=== PATIENT | female | born 1940 | race Caucasian/White ===

== ENCOUNTER → 2018-11-01 14:31 | Outpatient (CLI) | payer OTHER, SELFPAY ==
--- NOTE | 2018-11-01 14:33 | DI.RAD.S_ITS ---
This blank DEXA report has been sent in error by the PACS system. The correct and complete report will be forthcoming in 1-2 days. Thank you for your patience and understanding. Dictated by: Aftab Tatum M.D. on 11/01/2018 at 16:12 Approved by: Aftab Tatum M.D. on 11/01/2018 at 16:22
== END ==
PROVIDERS: PCP Family Medicine; Visit Provider Family Medicine
DX: M85.832 Other specified disorders of bone density and structure, left forearm (principal); Z78.0 Asymptomatic menopausal state; Z82.62 Family history of osteoporosis; Z85.3 Personal history of malignant neoplasm of breast; Z90.722 Acquired absence of ovaries, bilateral; Z87.891 Personal history of nicotine dependence
CPT/HCPCS: 77080

== ENCOUNTER → 2018-11-23 07:29 | Outpatient (CLI) | payer OTHER, SELFPAY ==
[2018-11-23 07:59] LABS: Add Manual Diff / Slide Review NO; Basophils Percent Auto 0.9 % (0-2); Eosinophils Percent Auto 6.8 % (2-4); Hematocrit 36.9 % (36-46); Hemoglobin 12.1 g/dL (12.0-16.0); Lymphocytes Percent Auto 40.8 % (25-40); Mean Corpuscular HGB Conc 32.8 % (30-36); Mean Corpuscular Hemoglobin 31.2 PG (26-34); Mean Corpuscular Volume 94.9 fL (80-100); Monocytes Percent Auto 10.1 % (3-14); Neutrophils Absolute Auto 2000 /uL (1500-7000); Neutrophils Percent Auto 41.4 % (50-75); Platelet Count 287 X10^3/uL (150-400); Red Blood Cell Count 3.88 X10^6/uL (4.0-5.2); Red Cell Distribution Width 13.6 % (11.6-14.8); White Blood Cell Count 4.7 X10^3/uL (4.5-11.0)
[2018-11-23 08:19] LABS: Alanine Aminotransferase 28 IU/L (9-52); Albumin 4.2 g/dL (3.5-5.0); Albumin Globulin Ratio 1.4 (1.0-2.8); Alkaline Phosphatase 69 U/L (38-126); Aspartate Aminotransferase 31 IU/L (14-36); Bilirubin Total 0.9 mg/dL (0.2-1.3); Blood Urea Nitrogen 21 mg/dL (7-17); Calcium 9.3 mg/dL (8.4-10.2); Carbon Dioxide 30 mmol/L (22-32); Chloride 104 mmol/L (98-107); Cholesterol 187 mg/dL (140-199); Estimated Glomerular Filt Rate 53.6 mL/min (>60); Globulin 2.9 g/dL (1.7-4.1); Glucose 90 mg/dL (80-110); HDL Cholesterol 91 mg/dL (40-60); HEMOLYSIS < 15 (0-50); LDL Cholesterol Calculated 79 mg/dL (<100); Potassium 4.6 mmol/L (3.4-5.1); Sodium 142 mmol/L (137-145); Total Protein 7.1 g/dL (6.3-8.2); Triglycerides 84 mg/dL (35-150)
[2018-11-23 08:55] LABS: Vitamin D 25 Hydroxy (D3) 47.5 ng/mL (30.0-100.0)
[2018-11-23 09:07] LABS: Thyroid Stimulating Hormone 2.92 uIU/mL (0.47-4.68)
== END ==
PROVIDERS: PCP Family Medicine; Visit Provider Family Medicine
DX: E03.9 Hypothyroidism, unspecified (principal); E78.5 Hyperlipidemia, unspecified
CPT/HCPCS: 36415; 80053; 80061; 82306; 84443; 85025

== ENCOUNTER → 2018-11-23 09:16 | Outpatient (CLI) | payer OTHER, SELFPAY ==
--- NOTE | 2018-11-23 | DI.MG.S_ITS ---
UNILATERAL LEFT DIGITAL SCREENING MAMMOGRAM 3D/2D WITH CAD: 11/23/2018 CLINICAL: Routine screening. Personal history of right breast cancer. Post right mastectomy. Comparison is made to exams dated: 09/28/2017 mammogram, 09/08/2016 mammogram, and 07/30/2015 mammogram - [facility]. There are scattered fibroglandular elements in left breast. Current study was also evaluated with a Computer Aided Detection (CAD) system. There are benign vascular calcifications in the left breast. No significant masses, calcifications, or other findings are seen in the breast. There has been no significant interval change. IMPRESSION: There is no mammographic evidence of malignancy. A 1 year screening mammogram is recommended. This exam was interpreted at Station ID: [id number]. NOTE: For mammograms, a report in lay terms will be sent to the patient. Approximately 15% of breast malignancies will not be visualized mammographically. In the management of a palpable breast mass, a negative mammogram must not discourage biopsy of a clinically suspicious lesion. Electronically Signed By: Bong omalley/phuong:11/23/2018 21:49:58 letter sent: Normal Exam ACR BI-RADS Category 2: Benign Finding(s) 3342F
== END ==
PROVIDERS: PCP Family Medicine; Visit Provider Family Medicine
DX: Z12.31 Encounter for screening mammogram for malignant neoplasm of breast (principal); Z85.3 Personal history of malignant neoplasm of breast
CPT/HCPCS: 77063; 77067

== ENCOUNTER → 2019-12-14 08:06 | Outpatient (CLI) | payer MEDICARE, SELFPAY ==
--- NOTE | 2019-12-14 | DI.MG.S_ITS ---
UNILATERAL LEFT DIGITAL SCREENING MAMMOGRAM 3D/2D WITH CAD POST MASTECTOMY: 12/14/2019 CLINICAL: Routine screening. Personal history of right breast cancer. Comparison is made to exams dated: 09/28/2017 mammogram, 11/23/2018 mammogram, 09/08/2016 mammogram, 07/30/2015 mammogram, 07/26/2014 mammogram, and 03/02/2013 mammogram - [facility]. The tissue of left breast is heterogeneously dense. This may lower the sensitivity of mammography. Current study was also evaluated with a Computer Aided Detection (CAD) system. There is an irregular focal asymmetry in the left breast superior lateral quadrant posterior depth. There are left breast vascular calcifications. No other significant masses or calcifications are seen in the breast. IMPRESSION: INCOMPLETE: NEEDS ADDITIONAL IMAGING EVALUATION The irregular focal asymmetry in the left breast is indeterminate. Additional views with possible ultrasound are recommended. This exam was interpreted at Station ID: [id number]. NOTE: For mammograms, a report in lay terms will be sent to the patient. Approximately 15% of breast malignancies will not be visualized mammographically. In the management of a palpable breast mass, a negative mammogram must not discourage biopsy of a clinically suspicious lesion. Electronically Signed By: Bong Gomez M.D. ecl/:12/14/2019 17:31:14 letter sent: Additional Imaging Needed ACR BI-RADS Category 0: Incomplete 3340F
== END ==
PROVIDERS: PCP Family Medicine; Visit Provider Family Medicine
DX: Z12.31 Encounter for screening mammogram for malignant neoplasm of breast (principal); Z85.3 Personal history of malignant neoplasm of breast
CPT/HCPCS: 77063; 77067

== ENCOUNTER → 2019-12-21 10:05 | Outpatient (CLI) | payer MEDICARE, SELFPAY ==
--- NOTE | 2019-12-21 10:06 | DI.MG.S_ITS ---
UNILATERAL LEFT DIGITAL DIAGNOSTIC MAMMOGRAM 3D/2D WITH ADDITIONAL VIEWS POST MASTECTOMY: 12/21/2019 CLINICAL: Additional evaluation requested from prior study. Comparison is made to exams dated: 12/14/2019 mammogram, 11/23/2018 mammogram, and 09/28/2017 mammogram - [facility]. The tissue of left breast is heterogeneously dense. This may lower the sensitivity of mammography. The irregular asymmetry with indistinct margins in the left breast central to the nipple posterior depth is not seen on additional views. No other significant masses or calcifications are seen in the breast. IMPRESSION: There is no mammographic evidence of malignancy. A 1 year screening mammogram is recommended. This exam was interpreted at Station ID: [id number]. NOTE: For mammograms, a report in lay terms will be sent to the patient. Approximately 15% of breast malignancies will not be visualized mammographically. In the management of a palpable breast mass, a negative mammogram must not discourage biopsy of a clinically suspicious lesion. Electronically Signed By: Anuj garcia/:12/21/2019 10:53:54 letter sent: Normal Exam ACR BI-RADS Category 2: Benign Finding(s) 3342F
== END ==
PROVIDERS: PCP Family Medicine; Visit Provider Family Medicine
DX: R92.8 Other abnormal and inconclusive findings on diagnostic imaging of breast (principal)
CPT/HCPCS: 76642; 77065; G0279

== ENCOUNTER → 2020-04-21 14:13 | Outpatient (CLI) | payer MEDICARE, SELFPAY ==
--- NOTE | 2020-04-21 14:14 | DI.US.S_ITS ---
PROCEDURE: US PERIPH VENOUS LOW EXTREM LT INDICATIONS: LLE EDEMA, R/O DVT TECHNIQUE: Real-time imaging, as well as color and pulse Doppler interrogation, were performed of the lower extremity deep veins from the inguinal ligament to the popliteal fossa. COMPARISON: None. FINDINGS: The common femoral, femoral and popliteal veins are normally compressible, and free of intraluminal thrombus. Color and pulse Doppler demonstrate normal phasic intraluminal flow. There is normal augmentation response to distal compression maneuver. Scattered subcutaneous varicose veins are incidentally noted within the region of the palpable area that appear to be patent. There is a subcutaneous edema present without a drainable or loculated fluid collection identified. IMPRESSION: No evidence of deep vein thrombosis of the left lower extremity. Dictated by: Kristopher Aguilar M.D. on 04/21/2020 at 14:01 Approved by: Kristopher Aguilar M.D. on 04/21/2020 at 14:04
== END ==
PROVIDERS: PCP Family Medicine; Referring Provider Nurse Practitioner; Visit Provider Nurse Practitioner
DX: R60.0 Localized edema (principal)
CPT/HCPCS: 93971

== ENCOUNTER → 2020-12-02 07:07 | Outpatient (CLI) | payer MEDICARE, SELFPAY ==
[2020-12-02 08:33] LABS: Alanine Aminotransferase 20 IU/L (<35); Albumin 4.1 g/dL (3.5-5.0); Albumin Globulin Ratio 1.6 (1.0-2.8); Alkaline Phosphatase 70 U/L (38-126); Aspartate Aminotransferase 34 IU/L (14-36); BUN Creatinine Ratio 18.8 (6-22); Bilirubin Total 0.5 mg/dL (0.2-1.3); Blood Urea Nitrogen 19 mg/dL (7-17); Calcium 9.2 mg/dL (8.4-10.2); Carbon Dioxide 32 mmol/L (22-32); Chloride 106 mmol/L (98-107); Cholesterol 179 mg/dL (140-199); Estimated Glomerular Filt Rate 52.7 mL/min (>60); Globulin 2.6 g/dL (1.7-4.1); Glucose 86 mg/dL (80-110); HDL Cholesterol 96 mg/dL (40-60); HEMOLYSIS < 15 (0-50); LDL Cholesterol Calculated 63 mg/dL (<100); Potassium 4.1 mmol/L (3.4-5.1); Sodium 139 mmol/L (137-145); Total Protein 6.7 g/dL (6.3-8.2); Triglycerides 99 mg/dL (35-150)
[2020-12-02 09:01] LABS: TSH w/ Reflex to FT4 2.87 uIU/mL (0.47-4.68)
== END ==
PROVIDERS: PCP Family Medicine; Referring Provider Family Medicine; Visit Provider Family Medicine
DX: E03.9 Hypothyroidism, unspecified (principal); E78.2 Mixed hyperlipidemia; M81.0 Age-related osteoporosis without current pathological fracture
CPT/HCPCS: 36415; 80053; 80061; 84443

== ENCOUNTER → 2020-12-22 10:22 | Outpatient (CLI) | payer MEDICARE, SELFPAY ==
--- NOTE | 2020-12-22 10:24 | DI.MG.S_ITS ---
UNILATERAL LEFT DIGITAL SCREENING MAMMOGRAM 3D/2D WITH CAD POST MASTECTOMY: 12/22/2020 CLINICAL: Routine screening. Breast cancer. Comparison is made to exams dated: 12/21/2019 mammogram, 12/14/2019 mammogram, 11/23/2018 mammogram, and 09/28/2017 mammogram - [facility]. The tissue of left breast is heterogeneously dense. This may lower the sensitivity of mammography. Current study was also evaluated with a Computer Aided Detection (CAD) system. No significant masses, calcifications, or other findings are seen in the breast. There has been no significant interval change. IMPRESSION: NEGATIVE There is no mammographic evidence of malignancy. A 1 year screening mammogram is recommended. This exam was interpreted at Station ID: [id number]. NOTE: For mammograms, a report in lay terms will be sent to the patient. Approximately 15% of breast malignancies will not be visualized mammographically. In the management of a palpable breast mass, a negative mammogram must not discourage biopsy of a clinically suspicious lesion. Electronically Signed By: Kp landa/phuong:12/22/2020 11:19:28 letter sent: Normal Exam ACR BI-RADS Category 1: Negative 3341F
== END ==
PROVIDERS: PCP Family Medicine; Referring Provider Family Medicine; Visit Provider Family Medicine
DX: Z12.31 Encounter for screening mammogram for malignant neoplasm of breast (principal); Z85.3 Personal history of malignant neoplasm of breast
CPT/HCPCS: 77063; 77067

== ENCOUNTER 2021-02-05 13:47 | Emergency (ER) | payer MEDICARE, SELFPAY ==
[2021-02-05 13:50] VITALS: BP 238/112; PULSE 102; RESP 13; TEMP 36.4; O2SAT 97; BMI 29.0
--- NOTE | 2021-02-05 13:58 | DI.CT.S_ITS ---
PROCEDURE: CT FACIAL BONES WO CON INDICATIONS: Fall, nasal swelling and facial pain TECHNIQUE: Noncontrast 2.5 mm thick axial images acquired from the mandible through the frontal sinuses, with coronal and sagittal reformatting. For radiation dose reduction, the following was used: automated exposure control, adjustment of mA and/or kV according to patient size. COMPARISON: None. FINDINGS: Image quality: Degraded by patient motion artifact. Bones and teeth: Orbital starkey are intact. Sinus starkey show no fracture or deformity. Bilateral nasal bone fractures noted. Nasal septum is intact. Visualized portions of the mandible demonstrate no fractures or subluxation. Zygomatic arches are intact. Pterygoid plates are intact. Visualized portions of the skull base and auditory canals are intact. Sinuses: Small mucous retention cyst versus polyp noted in the right maxillary sinus. 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 Mastoid air cells are aerated. Soft tissues: No edema, masses, or fluid collections. No enlarged lymph nodes. No soft tissue lacerations or debris. Vascular: Visualized vascular structures appear normal in the absence of contrast. Bony vascular foramina and canals are intact. IMPRESSION: Bilateral nasal bone fractures. Dictated by: Della Chapman MD, PhD on 02/05/2021 at 14:30 Approved by: Della Chapman MD, PhD on 02/05/2021 at 14:45
--- NOTE | 2021-02-05 13:58 | DI.RAD.S_ITS ---
PROCEDURE: XR KNEE LT 3V INDICATIONS: L patella pain post fall TECHNIQUE: 3 views of the knee were acquired. COMPARISON: [facility], CR, XR KNEE 1 OR 2VW RT, 08/10/2016, 14:47. [facility], CR, KNEE 3V RIGHT, 06/12/2013, 11:36. FINDINGS: Bones: No fractures or dislocations. No suspicious bony lesions. Knee hemiarthroplasty is present. No hardware fracture. There is depression of the medial compartment. No prior exams are available for comparison. Soft tissues: Moderate joint effusion. No suspicious soft tissue calcifications. IMPRESSION: Medial compartment hemiarthroplasty with depression of the plateau. While this could be post surgical, underlying fracture cannot be excluded. Dictated by: Alaina Wallace M.D. on 02/05/2021 at 14:39 Approved by: Alaina Wallace M.D. on 02/05/2021 at 14:47
--- NOTE | 2021-02-05 13:58 | DI.RAD.S_ITS ---
PROCEDURE: XR ELBOW RT MIN 3V INDICATIONS: R elbow pain post fall TECHNIQUE: 3 views of the elbow were acquired. COMPARISON: None. FINDINGS: Bones: No fractures or dislocations. No suspicious bony lesions. Arthritic changes at Soft tissues: Moderate elbow joint effusion. No suspicious soft tissue calcifications. IMPRESSION: No visualized acute fracture or dislocation. However, if clinical concern and/or pain persist, short interval imaging followup in 7-10 days is recommended, as occult injury cannot be definitively excluded. Dictated by: Alaina Wallace M.D. on 02/05/2021 at 14:36 Approved by: Alaina Wallace M.D. on 02/05/2021 at 14:39
--- NOTE | 2021-02-05 14:01 | ED.FALL ---
HPI - Fall <ESTELLA Kaye - Last Filed: 02/05/21 15:42> General Chief Complaint: Fall Stated Complaint: TRIPPED AND FELL, HURT NOSE, R ELBOW, L KNEE Time Seen by Provider: 02/05/21 13:49 Source: patient Mode of arrival: Ambulatory History of Present Illness HPI Narrative: 80yo female presents to the ED for nasal pain, right elbow pain, and left knee pain after fall. Patient states she was walking on the pavement when she tripped and fell face first. Patient states she landed on her nose, right elbow, and left knee. She states she was helped up by bystanders. She denies any symptoms previous to falling such as chest pain, dizziness, shortness of breath, or vertigo. She denies any syncope post fall, denies any headaches, vision changes, chest pain, abdominal pain, vomiting, disorientation, or any other concerns. She is not taking any blood thinners. Patient states this happened approximately 4 hours ago. She noticed swelling across her nose with pain to palpation of this area, pain with straightening her right elbow, and pain to palpation of her left knee. She is able to weightbear on her left leg normally. She does report some difficulty bending her right arm as well. Patient denies any neck pain or other injuries. Friend at bedside. Related Data Home Medications Medication Instructions Recorded Confirmed MULTIVITAMIN (Multivitamin 1 cap PO EVERY DAY #0 07/24/10 01/05/21 -) Vitamin E (Alpha-Tocopherol) 400 unit PO QDAY #0 07/24/10 01/05/21 [CoQ10] 300 mg PO QDAY #0 07/24/10 01/05/21 [VITAMIN B-50 COMPLEX] PO QDAY #0 07/24/10 01/05/21 vit C 50 mg-E 15 unit-zinc cit 4.5 2 tab PO DAILY 12/13/18 01/05/21 mg-lutein 2.5 mg-zeaxan chew tablet Previous Rx's Medication Instructions Recorded tolterodine 4 mg capsule,extended 4 mg PO ONCE #90 cap 10/21/20 release 24 hr zolpidem 5 mg tablet 5 mg PO HS #14 tab 11/12/20 atorvastatin 10 mg tablet 10 mg PO QPM #90 tab 12/10/20 levothyroxine 75 mcg tablet 75 mcg PO QAM #90 tab 12/10/20 raloxifene 60 mg tablet 60 mg PO QDAY #90 tab 01/12/21 meloxicam 7.5 mg tablet 7.5 mg PO DAILY #30 tab 01/15/21 Allergies Allergy/AdvReac Type Severity Reaction Status Date / Time morphine [MORPHINE] Allergy Mild ITCHY Verified 02/05/21 13:54 Review of Systems <ESTELLA Kaye - Last Filed: 02/05/21 15:42> Review of Systems Narrative: REVIEW OF SYSTEMS: GENERAL: Denies fever or chills. HENT: Reports nasal swelling and pain post trauma, see HPI. EYES: No double vision or vision loss. CARDIOVASCULAR: No chest pain or syncope. RESPIRATORY: No shortness of breath or cough. GASTROINTESTINAL: No nausea, vomiting, diarrhea, or constipation. MUSCULOSKELETAL: Complains of right elbow and left knee pain, see HPI. INTEGUMENTARY: No rash. NEURO: No numbness or tingling. Patient History <ESTELLA Kaye - Last Filed: 02/05/21 15:42> Medical History CKD (chronic kidney disease) stage 3, GFR 30-59 ml/min Hyperlipidemia Hypertension Hypothyroidism Lower extremity edema Mass of soft tissue of left lower extremity Osteoarthritis, multiple sites Osteoporosis Social History Smoking Status: Former smoker Smoking Status: Former smoker alcohol intake frequency: 0-2 drinks per day Substance Use Type: does not use Exam <ESTELLA Kaye - Last Filed: 02/05/21 15:42> Initial Vital Signs Initial Vital Signs: Vital Signs Temperature 97.6 F 02/05/21 13:50 Pulse Rate 102 H 02/05/21 13:50 Respiratory Rate 13 02/05/21 13:50 Blood Pressure 238/112 H 02/05/21 13:50 Pulse Oximetry 97 02/05/21 13:50 PHYSICAL EXAMINATION: GENERAL: Awake and alert, ambulates to room. HENT: Normocephalic, nasal area able appears grossly in line, significant swelling and ecchymosis noted to nose, tenderness with palpation that extends to mid maxillary bones bilaterally. No tenderness to palpation of mandible or forehead or skull including temporal bones. EYES: PERRLA, EOMIs, conjunctiva pink, sclera white, no periorbital swelling. CHEST: Normal to inspection and without deformities. RESPIRATORY: Normal respiratory rate, trachea midline, airway patent. No stridor, nasal flaring or accessory muscle use. MUSCULOSKELETAL: Tenderness to epicondyle of her right elbow, small amount of erythema and ecchymosis noted. Decreased flexion and extension due to pain. Tenderness to palpation of left patella, small amount of ecchymosis. Patient has good flexion and extension. Normal gait and coordination. Equal tone and mass bilaterally. EXTREMITIES: CMS intact. Moves all extremities. SKIN: Warm, dry, soft, appropriate color for ethnicity. No lesions, rashes, or wounds. NEURO: Alert and Oriented X 3. Good coordination. No ataxia, or sensory deficits, or cognitive issues. PSYCH: Appropriate affect and mood. <Remberto Morgan DO - Last Filed: 02/05/21 17:05> Initial Vital Signs Initial Vital Signs: Vital Signs Temperature 97.6 F 02/05/21 13:50 Pulse Rate 102 H 02/05/21 13:50 Respiratory Rate 13 02/05/21 13:50 Blood Pressure 238/112 H 02/05/21 13:50 Pulse Oximetry 97 02/05/21 13:50 Scores <ESTELLA Kaye - Last Filed: 02/05/21 15:42> GCS Tanner coma scale eye opening: Spontaneous Gustabo coma scale verbal response: Orientated Tanner coma scale motor response: Obey commands Gustabo coma scale total score: 15 Nexus Score for C-Spine Focal Neurologic deficit present: No Midline spinal tenderness present: No Altered level of conciousness present: No Intoxication present: No Distracting Injury Present: No Nexus Criteria for C-spine: 0 Course <ESTELLA Kaye - Last Filed: 02/05/21 15:42> Orders Ordered: ED Orders 02/05/21 13:58 CT facial bones wo con Stat XR elbow RT min 3V Stat XR knee LT 3V Stat Vital Signs Vital signs: Vital Signs - 8 hr 02/05/21 13:50 02/05/21 15:19 Temperature 97.6 F Pulse Rate 102 H 82 Respiratory Rate 13 12 Blood Pressure 238/112 H 210/100 H Pulse Oximetry 97 99 <Remberto Morgan DO - Last Filed: 02/05/21 17:05> Orders Ordered: ED Orders 02/05/21 13:58 CT facial bones wo con Stat XR elbow RT min 3V Stat XR knee LT 3V Stat Vital Signs Vital signs: Vital Signs - 8 hr 02/05/21 13:50 02/05/21 15:19 Temperature 97.6 F Pulse Rate 102 H 82 Respiratory Rate 13 12 Blood Pressure 238/112 H 210/100 H Pulse Oximetry 97 99 MDM - Fall <ESTELLA Kaye - Last Filed: 02/05/21 15:42> Medical Records Attestation: I reviewed the patient's medical records. Lab Data Attestation: I reviewed the patient's lab results. Imaging Data Extremity x-ray #1: Radiologist's Impression: [address] [id number] ReportSigned Patient: Julissa Ceja EDI#: [id number]: [id number]:[id number]/Sex: 80 / FDate of Service: 02/05/21Loc: EDAccession Number: [id number] Procedure: XR knee LT 3V Ordering Provider: Clotilde Bustamante PROCEDURE: XR KNEE LT 3V INDICATIONS: L patella pain post fall TECHNIQUE: 3 views of the knee were acquired. COMPARISON: [facility], CR, XR KNEE 1 OR 2VW RT, 08/10/2016, 14:47. [facility], CR, KNEE 3V RIGHT, 06/12/2013, 11:36. FINDINGS: Bones: No fractures or dislocations. No suspicious bony lesions. Knee hemiarthroplasty is present. No hardware fracture. There is depression of the medial compartment. No prior exams are available for comparison. Soft tissues: Moderate joint effusion. No suspicious soft tissue calcifications. IMPRESSION: Medial compartment hemiarthroplasty with depression of the plateau. While this could be post surgical, underlying fracture cannot be excluded. Dictated by: Alaina Wallace M.D. on 02/05/2021 at 14:39 Approved by: Alaina Wallace M.D. on 02/05/2021 at 14:47 Extremity x-ray #2: Radiologist's Impression: [address] [id number] ReportSigned Patient: Julissa Ceja JMR#: [id number]: 1940Acct:[id number]/Sex: 80 / FDate of Service: 02/05/21Lo: EDAccession Number: [id number] Procedure: XR elbow RT min 3V Ordering Provider: Clotilde Bustamante PROCEDURE: XR ELBOW RT MIN 3V INDICATIONS: R elbow pain post fall TECHNIQUE: 3 views of the elbow were acquired. COMPARISON: None. FINDINGS: Bones: No fractures or dislocations. No suspicious bony lesions. Arthritic changes at Soft tissues: Moderate elbow joint effusion. No suspicious soft tissue calcifications. IMPRESSION: No visualized acute fracture or dislocation. However, if clinical concern and/or pain persist, short interval imaging followup in 7-10 days is recommended, as occult injury cannot be definitively excluded. Dictated by: Alaina Wallace M.D. on 02/05/2021 at 14:36 Approved by: Alaina Wallace M.D. on 02/05/2021 at 14:[address]: Radiologist's Impression: [address] Scan ReportSigned Patient: Julissa Ceja JMR#: [id number]: 1940Acct:[id number]/Sex: 80 / FDate of Service: 02/05/21Lo: EDAccession Number: [id number] Procedure: CT facial bones wo con Ordering Provider: Clotilde Bustamante PROCEDURE: CT FACIAL BONES WO CON INDICATIONS: Fall, nasal swelling and facial pain TECHNIQUE: Noncontrast 2.5 mm thick axial images acquired from the mandible through the frontal sinuses, with coronal and sagittal reformatting. For radiation dose reduction, the following was used: automated exposure control, adjustment of mA and/or kV according to patient size. COMPARISON: None. FINDINGS: Image quality: Degraded by patient motion artifact. Bones and teeth: Orbital starkey are intact. Sinus starkey show no fracture or deformity. Bilateral nasal bone fractures noted. Nasal septum is intact. Visualized portions of the mandible demonstrate no fractures or subluxation. Zygomatic arches are intact. Pterygoid plates are intact. Visualized portions of the skull base and auditory canals are intact. Sinuses: Small mucous retention cyst versus polyp noted in the right maxillary sinus. 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 Mastoid air cells are aerated. Soft tissues: No edema, masses, or fluid collections. No enlarged lymph nodes. No soft tissue lacerations or debris. Vascular: Visualized vascular structures appear normal in the absence of contrast. Bony vascular foramina and canals are intact. IMPRESSION: Bilateral nasal bone fractures. Dictated by: Della Chapman MD, PhD on 02/05/2021 at 14:30 Approved by: Della Chapman MD, PhD on 02/05/2021 at 14:[address] [facility] Narrative Medical decision making narrative: 80-year-old female presenting to the emergency department after fall. She is not on any blood thinners, no concerning history such as prior symptoms, syncope, dizziness, or vomiting prior post fall. No neck pain, nexus criteria of 0, GCS of 15. Neuro exam intact, less concern for acute cranial etiology. CT scan was ordered due to maxillary facial pain and nasal pain, reveals bilateral nasal fractures. Patient did complain of right elbow and left knee pain with some ecchymosis on examination. Was concern for fracture due to negative images. There was some changes seen on left knee x-ray that may be postsurgical to the hemiarthroplasty. The x-ray report reads that is difficult to rule out fracture however, patient was only tender over her kneecap, she is able to ambulate without any significant tenderness, no significant swelling to this area, so very low suspicion for fracture. However, I discussed these findings with patient and she was encouraged to follow up if she develops any new or worsening pain. Patient was referred to ENT. She is able to breathe out of both nostrils, no bleeding at this time. Return precautions given for new or worsening symptoms. She agreed to plan of care verbalized understanding. Discharge Plan Departure Patient Disposition: Home Clinical Impression: Fracture closed, nasal bone Qualifiers: Encounter type: initial encounter Qualified Code(s): S02.2XXA - Fracture of nasal bones, initial encounter for closed fracture Acute knee pain Qualifiers: Laterality: left Qualified Code(s): M25.562 - Pain in left knee Instructions: DI for Nose Fracture, How to Prevent Falls Activity Restrictions/Additional Instructions: Thank you for entrusting me with your care today. As discussed, your CT shows bilateral nasal bone fractures. I referred you to an ENT, please call the office listed below and let them know you were seen in the ED for a nasal bone fracture and were instructed to follow up with them. Incidentally there is a small cyst/polyp noted in your right maxillary sinus. Your elbow x-rays negative for fractures. Your knee x-ray shows medial compartment hemiarthroplasty with depression of the plateau, this is most likely from surgical changes. However, if you continue to have pain in this area I suggest following up with your primary care provider or an orthopedic as imaging may need to be repeated to further rule out of fracture. Tried to sleep with your head slightly elevated over the next few days, use Tylenol as needed for pain. Do not blow your nose. Try to sneeze with your mouth open to relieve pressure. Your blood pressure was initially high today, this may be due to pain in the emergency department. When this occurs, we suggest monitoring your blood pressure over the next 1-2 weeks and follow-up with your primary care provider. Return emergency department for any new or worsening symptoms such as severe headache, uncontrollable bleeding, dizziness, syncope, vision changes, chest pain, shortness of breath, severe pain, or any other concerns. Prescriptions: No Action [CoQ10] 300 mg PO QDAY Qty: 0 RF: 0 MULTIVITAMIN (Multivitamin -) 1 cap PO EVERY DAY Qty: 0 RF: 0 Vitamin E (Alpha-Tocopherol) 400 unit PO QDAY Qty: 0 RF: 0 [VITAMIN B-50 COMPLEX] PO QDAY Qty: 0 RF: 0 tolterodine [Detrol LA] 4 mg capsule,extended release 24hr 4 mg PO ONCE Qty: 90 RF: 1 zolpidem 5 mg tablet 5 mg PO HS Qty: 14 RF: 0 raloxifene [Evista] 60 mg tablet 60 mg PO QDAY Qty: 90 RF: 1 meloxicam 7.5 mg tablet 7.5 mg PO DAILY Qty: 30 RF: 2 vit C-E-zinc [id number] [Ocuvite Eye Health] 50 mg-15 unit- 4.5 mg-2.5 mg tablet,chewable 2 tab PO DAILY RF: 0 levothyroxine [Synthroid] 75 mcg tablet 75 mcg PO QAM Qty: 90 RF: 3 atorvastatin 10 mg tablet 10 mg PO QPM Qty: 90 RF: 3 Referrals: Robin Sims MD [Primary Care Provider] - <Remberto Morgan DO - Last Filed: 02/05/21 17:05> Cosign ED Attending Cosignature Attestation: Dr Morgan Co-Sign Statement: I was available for consultation during this patient's emergency department visit. This chart is signed by myself for administrative purposes only. I did not have direct contact with this patient during this visit. They were seen independently by the APC.
[2021-02-05 15:19] VITALS: BP 210/100; PULSE 82; RESP 12; O2SAT 99
== END 2021-02-05 15:20 | disposition home or self-care (01) ==
PROVIDERS: Emergency Provider Nurse Practitioner; PCP Family Medicine
DX: S02.2XXA Fracture of nasal bones, initial encounter for closed fracture (principal); M25.521 Pain in right elbow; M25.562 Pain in left knee; W19.XXXA Unspecified fall, initial encounter
CPT/HCPCS: 70486; 73080; 73562; 99284

== ENCOUNTER 2021-03-17 13:45 | Outpatient (RCR) | payer MEDICARE, SELFPAY ==
--- NOTE | 2021-03-04 17:34 | PT.OIE ---
Current Diagnoses Pain in right elbow (03/04/21) Pain in left knee (03/04/21) Difficulty in walking, not elsewhere classified (03/04/21) Fracture of nasal bones, initial encounter for closed fracture (03/04/21) Past Medical History (Last Reviewed 02/05/21 @ 14:09 by ESTELLA Kaye) CKD (chronic kidney disease) stage 3, GFR 30-59 ml/min Hyperlipidemia Hypertension Hypothyroidism Lower extremity edema Mass of soft tissue of left lower extremity Osteoarthritis, multiple sites Osteoporosis Visit Care Team Role Provider Type Robin Sims MD Attending Provider Physician Primary Care Provider Referring Provider Specialty: [facility] Address: [address] [place] [address] Email: [email or web address] Physical Therapy Initial Evaluation PT-OP-A Visit Information Start: 03/04/21 13:03 Freq: Status: Active Protocol: Document 03/04/21 13:45 AW (Rec: 03/04/21 13:49 AW [id number]) Out-Patient Physical Therapy Visit Information Visit Information Visit Type Initial Evaluation Visit Start Time 13:00 Visit Stop Time 13:45 Total Visit Minutes 45 Visit Number 1 Number of SALES PERFORMANCE MANAGER Visits 0 Evaluation Information Evaluation Date 03/04/21 PT-OP-B Current Condition Start: 03/04/21 13:03 Freq: Status: Active Protocol: Document 03/04/21 13:45 AW (Rec: 03/04/21 13:49 AW [id number]) Current Condition History of Current Condition Onset Date 02/05/21 Current Complaints balance, recent falls History of Current Condition 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 On 02/05/21, she tripped over rubber mats, fell and fractured her nasal bones. She also had left knee and right shoulder pain. She was evaluated at ED. No fractures. Pain has mostly resolved. Pt states she fell one other time in the past year while working the same job site but did not injure herself at that fall. PMH includes osteopenia, breast and ovarian cancer, cataract surgery. She denies history of vestibular disorder though she does acknowledge some dizziness associated with panic - mostly related to driving and bridges. Pt has history of R ALICIA, R TKA, and left medial compartment knee arthroplasty. She has no pain now but relates decreased confidence with mobility. She typically wears knee high compression stockings for swelling left side. Prior Treatments and Tests PT after TKA's but no other therapy. X-rays following fall ruled out elbow or knee fractures. Treatment Goals Patient/Caregiver Goals I hope I can increase confidence in my balance and reduce the chance of falling again. Prior Functional Status Baseline Function- ADL's Independent Baseline Function- Mobility Independent Baseline Function- Gait railing for stairs; otherwise no AD Baseline Function- Work/School Volunteering four hour shifts at [employer] Baseline Function- Recreation/Hobbies [employer] volunteer Current Functional Impairments (Reported) Functional Limitations- Mobility/Gait decreased confidence Personal Factors Other Personal Factors That May Effect + positive association with Therapy/Recovery movement PT-OP-C Subjective Start: 03/04/21 13:03 Freq: Status: Active Protocol: Document 03/04/21 13:45 AW (Rec: 03/04/21 17:24 AW [email or web address]) Patient Questionnaires ABC- Activity Specific Balance Confidence Scale ABC Score 67.5 ABC Functional Impairment 20 to <40% Impaired (Score 61- 80) OP-PT Pain Assessment Pain Assessment Grid Paper Pain Assessment Grid Completed Yes: no pain PT-OP-D Balance Start: 03/04/21 13:03 Freq: Status: Active Protocol: Document 03/04/21 13:45 AW (Rec: 03/04/21 17:24 AW [email or web address]) OP-PT Balance Assessment Sitting Balance Static Sitting Balance Ability Normal Dynamic Sitting Balance Ability Normal Standing Balance Static Standing Balance Ability Good Dynamic Standing Balance Ability Good Device Used no AD Balance Tests mCTSIB mCTSIB Position 1 30 mCTSIB Position 2 30 mCTSIB Position 3 30 mCTSIB Position 4 8 Oliva Fall Scale Copyright Permission PT-OP-E Functional Tests Start: 03/04/21 13:03 Freq: Status: Active Protocol: Document 03/04/21 13:45 AW (Rec: 03/04/21 17:24 AW [email or web address]) Functional Tests Functional Gait Assessment Score 22 Functional Gait Assessment Impairment 20 to <40% Impaired (Score 19- Rating 24) PT-OP-G Mobility & Gait Start: 03/04/21 13:03 Freq: Status: Active Protocol: Document 03/04/21 13:45 AW (Rec: 03/04/21 17:24 AW [email or web address]) OP Gait Assessment Gait Gait Assistance Required: Independent Distance (Feet) 200 Assistive Devices Assistive Device None Orthotic/Prosthetic Devices or Brace: No Gait Deviations General Gait Pattern Antalgic,Step-to Gait Factors Limiting Gait Function Factors Limiting Gait Function Poor Balance Comments Gait Comments Slightly decreased LLE stance time; increased trunk rotation to the right PT-OP-H Neuro Start: 03/04/21 13:03 Freq: Status: Active Protocol: Document 03/04/21 13:45 AW (Rec: 03/04/21 17:24 AW [email or web address]) Sensation Evaluation Gross Sensation Gross Sensation WNL Deep Tendon Reflex & Clonus Assessment Deep Tendon Reflex Bilateral Achilles Deep Tendon Reflex 1+ Diminished Bilateral Patellar Deep Tendon Reflex 1+ Diminished PT-OP-K Range of Motion Start: 03/04/21 13:03 Freq: Status: Active Protocol: Document 03/04/21 13:45 AW (Rec: 03/04/21 17:24 AW [email or web address]) Lumbar Spine Range of Motion Lumbar Spine Active Comments WFL Hip Goniometric Range of Motion Hip Right Active Testing Position Supine Flexion w/Knee Flexed 95 Comments PROM 110 Left Active Testing Position Supine Flexion w/Knee Flexed 120 Comments PROM 122 Hip ROM Limitations Hip ROM Limitations Soft Tissue Tightness Knee Goniometric Range of Motion Knee Right Knee ROM WFL No Comments 0-110 AROM Left Knee ROM WFL No Patient Position Supine Comments 5-110 AROM PT-OP-M Strength Start: 03/04/21 13:03 Freq: Status: Active Protocol: Document 03/04/21 13:45 AW (Rec: 03/04/21 17:24 AW [email or web address]) Hip Strength Hip Manual Muscle Testing bilateral Flexion (L2) 4+ Good+ Extension (S1) 4- Good- Abduction 4 Good Adduction 4 Good External Rotation 4 Good Internal Rotation 4 Good Knee Strength Knee Manual Muscle Testing bilateral Flexion (S2) 4+ Good+ Extension (L3) 5 Normal Ankle/Foot Strength Ankle and Foot Manual Muscle Testing bilateral Dorsiflexion (L4) 4+ Good+ Plantarflexion (S1) 4+ Good+ Inversion 4+ Good+ Eversion (S1) 4+ Good+ Comments PF tested in standing with >12 heel lifts bilateraly PT-OP-T Assessment and Plan Start: 03/04/21 13:03 Freq: Status: Active Protocol: Document 03/04/21 13:45 AW (Rec: 03/04/21 17:33 AW [email or web address]) Physical Therapy Assessment Rehab Potential Rehabilitation Potential Good Evaluation Complexity Number of Personal Factors/Comorbidities 0 Number of Body Systems Impaired 1-2 Clinical Presentation at Evaluation Stable Impairments Impairments Balance,Functional Mobility, Gait,ROM,Strength Goals Four Impairment balance systems integration Custodial Goal (LTG) Pt will score 20 seconds or greater in condition 4 mCTSIB LTG Duration 2 months - 05/04/21 Three Impairment dynamic balance Taco Maker Goal (LTG) Pt will score 26/30 or greater on FGA to demonstrate improved dynamic balance Two Impairment hip strength Short Term Goal (STG) Pt will improve hip strength in all planes to 5/5 STG Duration 4 weeks - 04/01/21 One Impairment poor self-efficacy for balance Taco Maker Goal (LTG) Pt will score 80% or greater on ABC Scale for improved self -efficacy and fall risk reduction LTG Duration 2 months - 05/04/21 Assessment Summary Assessment Julissa is an 80 yo woman seen in outpatient physical therapy with recent history of falls. She presents with decreased self-efficacy regarding her mobility. She scores 22/30 on Functional Gait Assessment which is greater than norms for age- matched peers but less than norms for 70-79 yo (Walker, 2007). Pt is at increased risk of future falls. History of ostepenia puts her at greater risk for pathological fracture . Pt will benefit from skilled therapy to mitigate these risks. Physical Therapy Plan Frequency and Duration Frequency of Treatment 2x/Week Duration of Treatment 2 months Plan of Care Start Date 03/04/21 Plan of Care End Date 05/04/21 Therapeutic Interventions Therapeutic Interventions Balance Training,Gait Training ,Home Exercise Program,Manual Therapy,Neuromuscular Re- education,Patient/Caregiver Education,Self-Care/Home Management,Soft Tissue Mobilization,Therapeutic Activities,Therapeutic Exercises Next Visit Focus/Plan Next Note Type Treatment Note Next Visit Plan initiate hip mobility, hip strengthening, balance systems integration work
--- NOTE | 2021-03-04 17:34 | PT.OPPOC ---
Physical, Occupational & Speech Therapy At [facility] Current Diagnoses Pain in right elbow (03/04/21) Pain in left knee (03/04/21) Difficulty in walking, not elsewhere classified (03/04/21) Fracture of nasal bones, initial encounter for closed fracture (03/04/21) Visit Care Team Role Provider Type Robin Sims MD Attending Provider Physician Primary Care Provider Referring Provider Specialty: Family Practice Address: [address] [place] [address], [facility] Email: [email or web address] Plan Of Care PT-OP-T Assessment and Plan Start: 03/04/21 13:03 Freq: Status: Active Protocol: Document 03/04/21 13:45 AW (Rec: 03/04/21 17:33 AW [email or web address]) Physical Therapy Assessment Rehab Potential Rehabilitation Potential Good Evaluation Complexity Number of Personal Factors/Comorbidities 0 Number of Body Systems Impaired 1-2 Clinical Presentation at Evaluation Stable Impairments Impairments Balance,Functional Mobility, Gait,ROM,Strength Goals Four Impairment balance systems integration Hvac Designer Goal (LTG) Pt will score 20 seconds or greater in condition 4 mCTSIB LTG Duration 2 months - 05/04/21 Three Impairment dynamic balance Group Home Goal (LTG) Pt will score 26/30 or greater on FGA to demonstrate improved dynamic balance Two Impairment hip strength Short Term Goal (STG) Pt will improve hip strength in all planes to 5/5 STG Duration 4 weeks - 04/01/21 One Impairment poor self-efficacy for balance Hvac Designer Goal (LTG) Pt will score 80% or greater on ABC Scale for improved self -efficacy and fall risk reduction LTG Duration 2 months - 05/04/21 Assessment Summary Assessment Julissa is an 80 yo woman seen in outpatient physical therapy with recent history of falls. She presents with decreased self-efficacy regarding her mobility. She scores 22/30 on Functional Gait Assessment which is greater than norms for age- matched peers but less than norms for 70-79 yo (Xavier, 2007). Pt is at increased risk of future falls. History of ostepenia puts her at greater risk for pathological fracture . Pt will benefit from skilled therapy to mitigate these risks. Physical Therapy Plan Frequency and Duration Frequency of Treatment 2x/Week Duration of Treatment 2 months Plan of Care Start Date 03/04/21 Plan of Care End Date 05/04/21 Therapeutic Interventions Therapeutic Interventions Balance Training,Gait Training ,Home Exercise Program,Manual Therapy,Neuromuscular Re- education,Patient/Caregiver Education,Self-Care/Home Management,Soft Tissue Mobilization,Therapeutic Activities,Therapeutic Exercises Next Visit Focus/Plan Next Note Type Treatment Note Next Visit Plan initiate hip mobility, hip strengthening, balance systems integration work Plan of Care Dates Plan of Care Start Date 03/04/21 Plan of Care End Date 05/04/21 Electronically Signed by: Osiris Singh, PT 03/04/21 [id number] Please Sign and Return: I have reviewed this Plan of Care and certify that the skilled therapy services above are required to meet the patient?s needs. Physician Signature Date Printed Name and Credentials Clinical Instructor Signature Printed Name and Credentials
--- NOTE | 2021-03-06 08:18 | PT.OTN ---
Current Diagnoses Pain in right elbow (03/06/21) Pain in left knee (03/06/21) Difficulty in walking, not elsewhere classified (03/06/21) Fracture of nasal bones, initial encounter for closed fracture (03/06/21) Physical Therapy Treatment Note PT-OP-A Visit Information Start: 03/04/21 13:03 Freq: Status: Active Protocol: Document 03/06/21 07:30 MB (Rec: 03/06/21 08:06 MB [id number]) Out-Patient Physical Therapy Visit Information Visit Information Visit Type Treatment Note Visit Start Time 07:30 Visit Stop Time 08:10 Total Visit Minutes 40 Visit Number 2 PT-OP-B Current Condition Start: 03/04/21 13:03 Freq: Status: Active Protocol: Document 03/04/21 13:45 AW (Rec: 03/04/21 13:49 AW [id number]) Current Condition History of Current Condition Onset Date 02/05/21 Current Complaints balance, recent falls History of Current Condition 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 On 02/05/21, she tripped over rubber mats, fell and fractured her nasal bones. She also had left knee and right shoulder pain. She was evaluated at ED. No fractures. Pain has mostly resolved. Pt states she fell one other time in the past year while working the same job site but did not injure herself at that fall. PMH includes osteopenia, breast and ovarian cancer, cataract surgery. She denies history of vestibular disorder though she does acknowledge some dizziness associated with panic - mostly related to driving and bridges. Pt has history of R ALICIA, R TKA, and left medial compartment knee arthroplasty. She has no pain now but relates decreased confidence with mobility. She typically wears knee high compression stockings for swelling left side. Prior Treatments and Tests PT after TKA's but no other therapy. X-rays following fall ruled out elbow or knee fractures. Treatment Goals Patient/Caregiver Goals I hope I can increase confidence in my balance and reduce the chance of falling again. Prior Functional Status Baseline Function- ADL's Independent Baseline Function- Mobility Independent Baseline Function- Gait railing for stairs; otherwise no AD Baseline Function- Work/School Volunteering four hour shifts at [employer] Baseline Function- Recreation/Hobbies [employer] volunteer Current Functional Impairments (Reported) Functional Limitations- Mobility/Gait decreased confidence Personal Factors Other Personal Factors That May Effect + positive association with Therapy/Recovery movement PT-OP-C Subjective Start: 03/04/21 13:03 Freq: Status: Active Protocol: Document 03/06/21 07:30 MB (Rec: 03/06/21 08:06 MB [id number]) OP-PT Subjective Patient Comments Patient Comments I think I need to work on balance. PT-OP-D Balance Start: 03/04/21 13:03 Freq: Status: Active Protocol: Document 03/04/21 13:45 AW (Rec: 03/04/21 17:24 AW [email or web address]) OP-PT Balance Assessment Sitting Balance Static Sitting Balance Ability Normal Dynamic Sitting Balance Ability Normal Standing Balance Static Standing Balance Ability Good Dynamic Standing Balance Ability Good Device Used no AD Balance Tests mCTSIB mCTSIB Position 1 30 mCTSIB Position 2 30 mCTSIB Position 3 30 mCTSIB Position 4 8 Oliva Fall Scale Copyright Permission PT-OP-E Functional Tests Start: 03/04/21 13:03 Freq: Status: Active Protocol: Document 03/04/21 13:45 AW (Rec: 03/04/21 17:24 AW [email or web address]) Functional Tests Functional Gait Assessment Score 22 Functional Gait Assessment Impairment 20 to <40% Impaired (Score 19- Rating 24) PT-OP-G Mobility & Gait Start: 03/04/21 13:03 Freq: Status: Active Protocol: Document 03/04/21 13:45 AW (Rec: 03/04/21 17:24 AW [email or web address]) OP Gait Assessment Gait Gait Assistance Required: Independent Distance (Feet) 200 Assistive Devices Assistive Device None Orthotic/Prosthetic Devices or Brace: No Gait Deviations General Gait Pattern Antalgic,Step-to Gait Factors Limiting Gait Function Factors Limiting Gait Function Poor Balance Comments Gait Comments Slightly decreased LLE stance time; increased trunk rotation to the right PT-OP-H Neuro Start: 03/04/21 13:03 Freq: Status: Active Protocol: Document 03/04/21 13:45 AW (Rec: 03/04/21 17:24 AW [email or web address]) Sensation Evaluation Gross Sensation Gross Sensation WNL Deep Tendon Reflex & Clonus Assessment Deep Tendon Reflex Bilateral Achilles Deep Tendon Reflex 1+ Diminished Bilateral Patellar Deep Tendon Reflex 1+ Diminished PT-OP-K Range of Motion Start: 03/04/21 13:03 Freq: Status: Active Protocol: Document 03/04/21 13:45 AW (Rec: 03/04/21 17:24 AW [email or web address]) Lumbar Spine Range of Motion Lumbar Spine Active Comments WFL Hip Goniometric Range of Motion Hip Right Active Testing Position Supine Flexion w/Knee Flexed 95 Comments PROM 110 Left Active Testing Position Supine Flexion w/Knee Flexed 120 Comments PROM 122 Hip ROM Limitations Hip ROM Limitations Soft Tissue Tightness Knee Goniometric Range of Motion Knee Right Knee ROM WFL No Comments 0-110 AROM Left Knee ROM WFL No Patient Position Supine Comments 5-110 AROM PT-OP-M Strength Start: 03/04/21 13:03 Freq: Status: Active Protocol: Document 03/04/21 13:45 AW (Rec: 03/04/21 17:24 AW [email or web address]) Hip Strength Hip Manual Muscle Testing bilateral Flexion (L2) 4+ Good+ Extension (S1) 4- Good- Abduction 4 Good Adduction 4 Good External Rotation 4 Good Internal Rotation 4 Good Knee Strength Knee Manual Muscle Testing bilateral Flexion (S2) 4+ Good+ Extension (L3) 5 Normal Ankle/Foot Strength Ankle and Foot Manual Muscle Testing bilateral Dorsiflexion (L4) 4+ Good+ Plantarflexion (S1) 4+ Good+ Inversion 4+ Good+ Eversion (S1) 4+ Good+ Comments PF tested in standing with >12 heel lifts bilateraly PT-OP-Q Treatments Start: 03/04/21 13:03 Freq: Status: Active Protocol: Document 03/06/21 07:30 MB (Rec: 03/06/21 08:06 MB [id number]) Neuro Re-Education Treatment Balance Activities FGA Comments Score is 22/30, indicating increased risk for falling with most trouble with tandem gait and vertical head turns and pt requiring CGA for these . Will add in future balance exercise program Vestibular Rehabilitation [facility] Eye Chart Testing Comments Positive hypofunction with 2 line difference for horizontal head turns and 4 line difference with vertical head turns reading eye chart in hallway On personalized size eye chart for HEP, E on second line from bottom and cues and practive for VOR exercises horizontal and vertical in sitting 10' away from eye chart and PT provides chart for pt to take home PT-OP-T Assessment and Plan Start: 03/04/21 13:03 Freq: Status: Active Protocol: Document 03/06/21 07:30 MB (Rec: 03/06/21 08:06 MB [id number]) Physical Therapy Assessment Rehab Potential Rehabilitation Potential Good Evaluation Complexity Number of Personal Factors/Comorbidities 0 Number of Body Systems Impaired 1-2 Clinical Presentation at Evaluation Stable Impairments Impairments Balance,Functional Mobility, Gait,ROM,Strength Goals Four Impairment balance systems integration City Mail Carrier Goal (LTG) Pt will score 20 seconds or greater in condition 4 mCTSIB LTG Duration 2 months - 05/04/21 Three Impairment dynamic balance City Mail Carrier Goal (LTG) Pt will score 26/30 or greater on FGA to demonstrate improved dynamic balance Two Impairment hip strength Short Term Goal (STG) Pt will improve hip strength in all planes to 5/5 STG Duration 4 weeks - 04/01/21 One Impairment poor self-efficacy for balance Jail Goal (LTG) Pt will score 80% or greater on ABC Scale for improved self -efficacy and fall risk reduction LTG Duration 2 months - 05/04/21 Assessment Summary Assessment Extensive time working on speed and distance for VOR exercise today, pt to con't at home. Also, FGA determined that tandem gait and gait with vertical head turns will be good inventions for pt. Physical Therapy Plan Frequency and Duration Frequency of Treatment 2x/Week Duration of Treatment 2 months Plan of Care Start Date 03/04/21 Plan of Care End Date 05/04/21 Therapeutic Interventions Therapeutic Interventions Balance Training,Gait Training ,Home Exercise Program,Manual Therapy,Neuromuscular Re- education,Patient/Caregiver Education,Self-Care/Home Management,Soft Tissue Mobilization,Therapeutic Activities,Therapeutic Exercises Next Visit Focus/Plan Next Note Type Treatment Note Next Visit Plan Gait exercises to include tandem walking and gait with vertical head turns, hip strengthening in standing, review VOR exercises
--- NOTE | 2021-03-09 14:36 | PT.OTN ---
Current Diagnoses Pain in right elbow (03/09/21) Pain in left knee (03/09/21) Difficulty in walking, not elsewhere classified (03/09/21) Fracture of nasal bones, initial encounter for closed fracture (03/09/21) Physical Therapy Treatment Note PT-OP-A Visit Information Start: 03/04/21 13:03 Freq: Status: Active Protocol: Document 03/09/21 07:31 MB (Rec: 03/09/21 08:04 MB [id number]) Out-Patient Physical Therapy Visit Information Visit Information Visit Type Treatment Note Visit Start Time 07:31 Visit Stop Time 08:13 Total Visit Minutes 42 Visit Number 3 PT-OP-B Current Condition Start: 03/04/21 13:03 Freq: Status: Active Protocol: Document 03/04/21 13:45 AW (Rec: 03/04/21 13:49 AW [id number]) Current Condition History of Current Condition Onset Date 02/05/21 Current Complaints balance, recent falls History of Current Condition 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 On 02/05/21, she tripped over rubber mats, fell and fractured her nasal bones. She also had left knee and right shoulder pain. She was evaluated at ED. No fractures. Pain has mostly resolved. Pt states she fell one other time in the past year while working the same job site but did not injure herself at that fall. PMH includes osteopenia, breast and ovarian cancer, cataract surgery. She denies history of vestibular disorder though she does acknowledge some dizziness associated with panic - mostly related to driving and bridges. Pt has history of R ALICIA, R TKA, and left medial compartment knee arthroplasty. She has no pain now but relates decreased confidence with mobility. She typically wears knee high compression stockings for swelling left side. Prior Treatments and Tests PT after TKA's but no other therapy. X-rays following fall ruled out elbow or knee fractures. Treatment Goals Patient/Caregiver Goals I hope I can increase confidence in my balance and reduce the chance of falling again. Prior Functional Status Baseline Function- ADL's Independent Baseline Function- Mobility Independent Baseline Function- Gait railing for stairs; otherwise no AD Baseline Function- Work/School Volunteering four hour shifts at [employer] Baseline Function- Recreation/Hobbies [employer] volunteer Current Functional Impairments (Reported) Functional Limitations- Mobility/Gait decreased confidence Personal Factors Other Personal Factors That May Effect + positive association with Therapy/Recovery movement PT-OP-C Subjective Start: 03/04/21 13:03 Freq: Status: Active Protocol: Document 03/09/21 07:31 MB (Rec: 03/09/21 08:04 MB [id number]) OP-PT Subjective Patient Comments Patient Comments I don't know if I noticed anything different. Pt states that she did her VOR exercises PT-OP-D Balance Start: 03/04/21 13:03 Freq: Status: Active Protocol: Document 03/04/21 13:45 AW (Rec: 03/04/21 17:24 AW [email or web address]) OP-PT Balance Assessment Sitting Balance Static Sitting Balance Ability Normal Dynamic Sitting Balance Ability Normal Standing Balance Static Standing Balance Ability Good Dynamic Standing Balance Ability Good Device Used no AD Balance Tests mCTSIB mCTSIB Position 1 30 mCTSIB Position 2 30 mCTSIB Position 3 30 mCTSIB Position 4 8 Oliva Fall Scale Copyright Permission PT-OP-E Functional Tests Start: 03/04/21 13:03 Freq: Status: Active Protocol: Document 03/04/21 13:45 AW (Rec: 03/04/21 17:24 AW [email or web address]) Functional Tests Functional Gait Assessment Score 22 Functional Gait Assessment Impairment 20 to <40% Impaired (Score 19- Rating 24) PT-OP-G Mobility & Gait Start: 03/04/21 13:03 Freq: Status: Active Protocol: Document 03/04/21 13:45 AW (Rec: 03/04/21 17:24 AW [email or web address]) OP Gait Assessment Gait Gait Assistance Required: Independent Distance (Feet) 200 Assistive Devices Assistive Device None Orthotic/Prosthetic Devices or Brace: No Gait Deviations General Gait Pattern Antalgic,Step-to Gait Factors Limiting Gait Function Factors Limiting Gait Function Poor Balance Comments Gait Comments Slightly decreased LLE stance time; increased trunk rotation to the right PT-OP-H Neuro Start: 03/04/21 13:03 Freq: Status: Active Protocol: Document 03/04/21 13:45 AW (Rec: 03/04/21 17:24 AW [email or web address]) Sensation Evaluation Gross Sensation Gross Sensation WNL Deep Tendon Reflex & Clonus Assessment Deep Tendon Reflex Bilateral Achilles Deep Tendon Reflex 1+ Diminished Bilateral Patellar Deep Tendon Reflex 1+ Diminished PT-OP-K Range of Motion Start: 03/04/21 13:03 Freq: Status: Active Protocol: Document 03/04/21 13:45 AW (Rec: 03/04/21 17:24 AW [email or web address]) Lumbar Spine Range of Motion Lumbar Spine Active Comments WFL Hip Goniometric Range of Motion Hip Right Active Testing Position Supine Flexion w/Knee Flexed 95 Comments PROM 110 Left Active Testing Position Supine Flexion w/Knee Flexed 120 Comments PROM 122 Hip ROM Limitations Hip ROM Limitations Soft Tissue Tightness Knee Goniometric Range of Motion Knee Right Knee ROM WFL No Comments 0-110 AROM Left Knee ROM WFL No Patient Position Supine Comments 5-110 AROM PT-OP-M Strength Start: 03/04/21 13:03 Freq: Status: Active Protocol: Document 03/04/21 13:45 AW (Rec: 03/04/21 17:24 AW [email or web address]) Hip Strength Hip Manual Muscle Testing bilateral Flexion (L2) 4+ Good+ Extension (S1) 4- Good- Abduction 4 Good Adduction 4 Good External Rotation 4 Good Internal Rotation 4 Good Knee Strength Knee Manual Muscle Testing bilateral Flexion (S2) 4+ Good+ Extension (L3) 5 Normal Ankle/Foot Strength Ankle and Foot Manual Muscle Testing bilateral Dorsiflexion (L4) 4+ Good+ Plantarflexion (S1) 4+ Good+ Inversion 4+ Good+ Eversion (S1) 4+ Good+ Comments PF tested in standing with >12 heel lifts bilateraly PT-OP-Q Treatments Start: 03/04/21 13:03 Freq: Status: Active Protocol: Document 03/09/21 07:31 MB (Rec: 03/09/21 08:04 MB [id number]) Neuro Re-Education Treatment Balance Activities Balance challenges outside Comments Close superv for pt stepping on and off curb to the side with forward walking: up onto grass and then down onto pavement x4 reps right step off and left step off directions. No LOB Progressive Corner Exercises Comments Romberg EO ad EC: pt is able to maintain balance in both positions, to perform at home. Progressive head turns in standing Vertical Head Turns with gait, Tandem gait Comments Superv to perform vertical head turns with gait x6 reps, tandem walking with CGA and then superv when sliding finger over bar in hallway, this added to HEP Vestibular Rehabilitation DVA Eye Chart Testing Comments Standing VOR exercises: DVA Eye Chart and pt focusing on E second from the bottom and horizontal and vertical head turns. Ed pt on advancement to Romberg. PT-OP-T Assessment and Plan Start: 03/04/21 13:03 Freq: Status: Active Protocol: Document 03/09/21 07:31 MB (Rec: 03/09/21 08:04 MB [id number]) Physical Therapy Assessment Rehab Potential Rehabilitation Potential Good Evaluation Complexity Number of Personal Factors/Comorbidities 0 Number of Body Systems Impaired 1-2 Clinical Presentation at Evaluation Stable Impairments Impairments Balance,Functional Mobility, Gait,ROM,Strength Goals Four Impairment balance systems integration Mcfp Goal (LTG) Pt will score 20 seconds or greater in condition 4 mCTSIB LTG Duration 2 months - 05/04/21 Three Impairment dynamic balance Mcfp Goal (LTG) Pt will score 26/30 or greater on FGA to demonstrate improved dynamic balance Two Impairment hip strength Short Term Goal (STG) Pt will improve hip strength in all planes to 5/5 STG Duration 4 weeks - 04/01/21 One Impairment poor self-efficacy for balance [employer]ant Goal (LTG) Pt will score 80% or greater on ABC Scale for improved self -efficacy and fall risk reduction LTG Duration 2 months - 05/04/21 Assessment Summary Assessment Progressed balance exercises today and pt to perform standing VOR exercise, tandem walking and progressive Romberg at home. Pt was able to tolerate balance challenges with gait outside today. She is doing so well, PT course may be shortened. Will con't to assess. Physical Therapy Plan Frequency and Duration Frequency of Treatment 2x/Week Duration of Treatment 2 months Plan of Care Start Date 03/04/21 Plan of Care End Date 05/04/21 Therapeutic Interventions Therapeutic Interventions Balance Training,Gait Training ,Home Exercise Program,Manual Therapy,Neuromuscular Re- education,Patient/Caregiver Education,Self-Care/Home Management,Soft Tissue Mobilization,Therapeutic Activities,Therapeutic Exercises Next Visit Focus/Plan Next Note Type Treatment Note Next Visit Plan Hip strengthening in standing, review VOR exercises as needed, consider Buteyko breathing
--- NOTE | 2021-03-11 13:45 | PT.OTN ---
Current Diagnoses Pain in right elbow (03/11/21) Pain in left knee (03/11/21) Difficulty in walking, not elsewhere classified (03/11/21) Fracture of nasal bones, initial encounter for closed fracture (03/11/21) Physical Therapy Treatment Note PT-OP-A Visit Information Start: 03/04/21 13:03 Freq: Status: Active Protocol: Document 03/11/21 13:45 AW (Rec: 03/11/21 13:48 AW [id number]) Out-Patient Physical Therapy Visit Information Visit Information Visit Type Treatment Note Visit Start Time 12:58 Visit Stop Time 13:42 Total Visit Minutes 44 Visit Number 4 PT-OP-B Current Condition Start: 03/04/21 13:03 Freq: Status: Active Protocol: Document 03/04/21 13:45 AW (Rec: 03/04/21 13:49 AW [id number]) Current Condition History of Current Condition Onset Date 02/05/21 Current Complaints balance, recent falls History of Current Condition 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 On 02/05/21, she tripped over rubber mats, fell and fractured her nasal bones. She also had left knee and right shoulder pain. She was evaluated at ED. No fractures. Pain has mostly resolved. Pt states she fell one other time in the past year while working the same job site but did not injure herself at that fall. PMH includes osteopenia, breast and ovarian cancer, cataract surgery. She denies history of vestibular disorder though she does acknowledge some dizziness associated with panic - mostly related to driving and bridges. Pt has history of R ALICIA, R TKA, and left medial compartment knee arthroplasty. She has no pain now but relates decreased confidence with mobility. She typically wears knee high compression stockings for swelling left side. Prior Treatments and Tests PT after TKA's but no other therapy. X-rays following fall ruled out elbow or knee fractures. Treatment Goals Patient/Caregiver Goals I hope I can increase confidence in my balance and reduce the chance of falling again. Prior Functional Status Baseline Function- ADL's Independent Baseline Function- Mobility Independent Baseline Function- Gait railing for stairs; otherwise no AD Baseline Function- Work/School Volunteering four hour shifts at [employer] Baseline Function- Recreation/Hobbies [employer] volunteer Current Functional Impairments (Reported) Functional Limitations- Mobility/Gait decreased confidence Personal Factors Other Personal Factors That May Effect + positive association with Therapy/Recovery movement PT-OP-C Subjective Start: 03/04/21 13:03 Freq: Status: Active Protocol: Document 03/11/21 13:45 AW (Rec: 03/11/21 13:48 AW [id number]) OP-PT Subjective Patient Comments Patient Comments My VOR exercises have gotten easier and I can now keep the letter in focus. PT-OP-D Balance Start: 03/04/21 13:03 Freq: Status: Active Protocol: Document 03/04/21 13:45 AW (Rec: 03/04/21 17:24 AW [email or web address]) OP-PT Balance Assessment Sitting Balance Static Sitting Balance Ability Normal Dynamic Sitting Balance Ability Normal Standing Balance Static Standing Balance Ability Good Dynamic Standing Balance Ability Good Device Used no AD Balance Tests mCTSIB mCTSIB Position 1 30 mCTSIB Position 2 30 mCTSIB Position 3 30 mCTSIB Position 4 8 Oliva Fall Scale Copyright Permission PT-OP-E Functional Tests Start: 03/04/21 13:03 Freq: Status: Active Protocol: Document 03/04/21 13:45 AW (Rec: 03/04/21 17:24 AW [email or web address]) Functional Tests Functional Gait Assessment Score 22 Functional Gait Assessment Impairment 20 to <40% Impaired (Score 19- Rating 24) PT-OP-G Mobility & Gait Start: 03/04/21 13:03 Freq: Status: Active Protocol: Document 03/04/21 13:45 AW (Rec: 03/04/21 17:24 AW [email or web address]) OP Gait Assessment Gait Gait Assistance Required: Independent Distance (Feet) 200 Assistive Devices Assistive Device None Orthotic/Prosthetic Devices or Brace: No Gait Deviations General Gait Pattern Antalgic,Step-to Gait Factors Limiting Gait Function Factors Limiting Gait Function Poor Balance Comments Gait Comments Slightly decreased LLE stance time; increased trunk rotation to the right PT-OP-H Neuro Start: 03/04/21 13:03 Freq: Status: Active Protocol: Document 03/04/21 13:45 AW (Rec: 03/04/21 17:24 AW [email or web address]) Sensation Evaluation Gross Sensation Gross Sensation WNL Deep Tendon Reflex & Clonus Assessment Deep Tendon Reflex Bilateral Achilles Deep Tendon Reflex 1+ Diminished Bilateral Patellar Deep Tendon Reflex 1+ Diminished PT-OP-K Range of Motion Start: 03/04/21 13:03 Freq: Status: Active Protocol: Document 03/04/21 13:45 AW (Rec: 03/04/21 17:24 AW [email or web address]) Lumbar Spine Range of Motion Lumbar Spine Active Comments WFL Hip Goniometric Range of Motion Hip Right Active Testing Position Supine Flexion w/Knee Flexed 95 Comments PROM 110 Left Active Testing Position Supine Flexion w/Knee Flexed 120 Comments PROM 122 Hip ROM Limitations Hip ROM Limitations Soft Tissue Tightness Knee Goniometric Range of Motion Knee Right Knee ROM WFL No Comments 0-110 AROM Left Knee ROM WFL No Patient Position Supine Comments 5-110 AROM PT-OP-M Strength Start: 03/04/21 13:03 Freq: Status: Active Protocol: Document 03/04/21 13:45 AW (Rec: 03/04/21 17:24 AW [email or web address]) Hip Strength Hip Manual Muscle Testing bilateral Flexion (L2) 4+ Good+ Extension (S1) 4- Good- Abduction 4 Good Adduction 4 Good External Rotation 4 Good Internal Rotation 4 Good Knee Strength Knee Manual Muscle Testing bilateral Flexion (S2) 4+ Good+ Extension (L3) 5 Normal Ankle/Foot Strength Ankle and Foot Manual Muscle Testing bilateral Dorsiflexion (L4) 4+ Good+ Plantarflexion (S1) 4+ Good+ Inversion 4+ Good+ Eversion (S1) 4+ Good+ Comments PF tested in standing with >12 heel lifts bilateraly PT-OP-Q Treatments Start: 03/04/21 13:03 Freq: Status: Active Protocol: Document 03/11/21 13:45 AW (Rec: 03/11/21 13:48 AW [id number]) Therapeutic Exercises Standing Exercises lateral band walk Standing Exercise Name lateral band walk Resistance yellow loop Reps/Minutes 4 laps Comments cued pelvic stability, glute recruitment Neuro Re-Education Treatment Balance Activities Balance challenges outside Comments Close superv for pt stepping on and off curb to the side with forward walking: up onto grass and then down onto pavement x4 reps right step off and left step off directions. No LOB Up and down grassy hill with focus on foot clearance. No LOB Progressive Corner Exercises Comments Romberg EO ad EC: pt is able to maintain balance in both positions, to perform at home. Progressive head turns in standing. Progressed to tandem stance with better performance left foot forward. Improved with reps. Vertical Head Turns with gait, Tandem gait Comments Superv to perform vertical and horizontal head turns with gait x6 reps, tandem walking with CGA and then superv when sliding finger over bar in hallway. Faded support to light fingertip on gait belt and pt able to complete up to five steps before needing to contact rail. Vestibular Rehabilitation DVA Eye Chart Testing Comments Standing VOR exercises: DVA Eye Chart and pt focusing on E second from the bottom and horizontal and vertical head turns. Used metronome for pacing with pt able to maintain focus at 120 bpm (2Hz ) PT-OP-T Assessment and Plan Start: 03/04/21 13:03 Freq: Status: Active Protocol: Document 03/11/21 13:45 AW (Rec: 03/11/21 16:47 AW [email or web address]) Physical Therapy Assessment Rehab Potential Rehabilitation Potential Good Evaluation Complexity Number of Personal Factors/Comorbidities 0 Number of Body Systems Impaired 1-2 Clinical Presentation at Evaluation Stable Impairments Impairments Balance,Functional Mobility, Gait,ROM,Strength Goals Four Impairment balance systems integration Group Home Goal (LTG) Pt will score 20 seconds or greater in condition 4 mCTSIB LTG Duration 2 months - 05/04/21 Three Impairment dynamic balance Group Home Goal (LTG) Pt will score 26/30 or greater on FGA to demonstrate improved dynamic balance Two Impairment hip strength Short Term Goal (STG) Pt will improve hip strength in all planes to 5/5 STG Duration 4 weeks - 04/01/21 One Impairment poor self-efficacy for balance Group Home Goal (LTG) Pt will score 80% or greater on ABC Scale for improved self -efficacy and fall risk reduction LTG Duration 2 months - 05/04/21 Assessment Summary Assessment Pt improved tandem walking this session. With metronome, confirmed pt is able to maintain focus with head turns (horizontal and vertical) at 2Hz. Progressed to head turns in tandem stance which was quite challenging. Pt likely to discharge after a few more sessions. Physical Therapy Plan Frequency and Duration Frequency of Treatment 2x/Week Duration of Treatment 2 months Plan of Care Start Date 03/04/21 Plan of Care End Date 05/04/21 Therapeutic Interventions Therapeutic Interventions Balance Training,Gait Training ,Home Exercise Program,Manual Therapy,Neuromuscular Re- education,Patient/Caregiver Education,Self-Care/Home Management,Soft Tissue Mobilization,Therapeutic Activities,Therapeutic Exercises Next Visit Focus/Plan Next Note Type Treatment Note Next Visit Plan Hip strengthening in standing, review VOR exercises as needed, consider Buteyko breathing
--- NOTE | 2021-03-17 14:21 | PT.OTN ---
Current Diagnoses Pain in right elbow (03/17/21) Pain in left knee (03/17/21) Difficulty in walking, not elsewhere classified (03/17/21) Fracture of nasal bones, initial encounter for closed fracture (03/17/21) Physical Therapy Treatment Note PT-OP-A Visit Information Start: 03/04/21 13:03 Freq: Status: Active Protocol: Document 03/17/21 13:46 MB (Rec: 03/17/21 14:13 MB [id number]) Out-Patient Physical Therapy Visit Information Visit Information Visit Type Treatment Note Visit Start Time 13:46 Visit Stop Time 14:14 Total Visit Minutes 28 Visit Number 5 PT-OP-B Current Condition Start: 03/04/21 13:03 Freq: Status: Active Protocol: Document 03/04/21 13:45 AW (Rec: 03/04/21 13:49 AW [id number]) Current Condition History of Current Condition Onset Date 02/05/21 Current Complaints balance, recent falls History of Current Condition 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 On 02/05/21, she tripped over rubber mats, fell and fractured her nasal bones. She also had left knee and right shoulder pain. She was evaluated at ED. No fractures. Pain has mostly resolved. Pt states she fell one other time in the past year while working the same job site but did not injure herself at that fall. PMH includes osteopenia, breast and ovarian cancer, cataract surgery. She denies history of vestibular disorder though she does acknowledge some dizziness associated with panic - mostly related to driving and bridges. Pt has history of R ALICIA, R TKA, and left medial compartment knee arthroplasty. She has no pain now but relates decreased confidence with mobility. She typically wears knee high compression stockings for swelling left side. Prior Treatments and Tests PT after TKA's but no other therapy. X-rays following fall ruled out elbow or knee fractures. Treatment Goals Patient/Caregiver Goals I hope I can increase confidence in my balance and reduce the chance of falling again. Prior Functional Status Baseline Function- ADL's Independent Baseline Function- Mobility Independent Baseline Function- Gait railing for stairs; otherwise no AD Baseline Function- Work/School Volunteering four hour shifts at [employer] Baseline Function- Recreation/Hobbies [employer] volunteer Current Functional Impairments (Reported) Functional Limitations- Mobility/Gait decreased confidence Personal Factors Other Personal Factors That May Effect + positive association with Therapy/Recovery movement PT-OP-C Subjective Start: 03/04/21 13:03 Freq: Status: Active Protocol: Document 03/17/21 13:46 MB (Rec: 03/17/21 14:13 MB [id number]) OP-PT Subjective Patient Comments Patient Comments Pt states that she is doing alright and is ready for d/c. PT-OP-D Balance Start: 03/04/21 13:03 Freq: Status: Active Protocol: Document 03/04/21 13:45 AW (Rec: 03/04/21 17:24 AW [email or web address]) OP-PT Balance Assessment Sitting Balance Static Sitting Balance Ability Normal Dynamic Sitting Balance Ability Normal Standing Balance Static Standing Balance Ability Good Dynamic Standing Balance Ability Good Device Used no AD Balance Tests mCTSIB mCTSIB Position 1 30 mCTSIB Position 2 30 mCTSIB Position 3 30 mCTSIB Position 4 8 Oliva Fall Scale Copyright Permission PT-OP-E Functional Tests Start: 03/04/21 13:03 Freq: Status: Active Protocol: Document 03/04/21 13:45 AW (Rec: 03/04/21 17:24 AW [email or web address]) Functional Tests Functional Gait Assessment Score 22 Functional Gait Assessment Impairment 20 to <40% Impaired (Score 19- Rating 24) PT-OP-G Mobility & Gait Start: 03/04/21 13:03 Freq: Status: Active Protocol: Document 03/04/21 13:45 AW (Rec: 03/04/21 17:24 AW [email or web address]) OP Gait Assessment Gait Gait Assistance Required: Independent Distance (Feet) 200 Assistive Devices Assistive Device None Orthotic/Prosthetic Devices or Brace: No Gait Deviations General Gait Pattern Antalgic,Step-to Gait Factors Limiting Gait Function Factors Limiting Gait Function Poor Balance Comments Gait Comments Slightly decreased LLE stance time; increased trunk rotation to the right PT-OP-H Neuro Start: 03/04/21 13:03 Freq: Status: Active Protocol: Document 03/04/21 13:45 AW (Rec: 03/04/21 17:24 AW [email or web address]) Sensation Evaluation Gross Sensation Gross Sensation WNL Deep Tendon Reflex & Clonus Assessment Deep Tendon Reflex Bilateral Achilles Deep Tendon Reflex 1+ Diminished Bilateral Patellar Deep Tendon Reflex 1+ Diminished PT-OP-K Range of Motion Start: 03/04/21 13:03 Freq: Status: Active Protocol: Document 03/04/21 13:45 AW (Rec: 03/04/21 17:24 AW [email or web address]) Lumbar Spine Range of Motion Lumbar Spine Active Comments WFL Hip Goniometric Range of Motion Hip Right Active Testing Position Supine Flexion w/Knee Flexed 95 Comments PROM 110 Left Active Testing Position Supine Flexion w/Knee Flexed 120 Comments PROM 122 Hip ROM Limitations Hip ROM Limitations Soft Tissue Tightness Knee Goniometric Range of Motion Knee Right Knee ROM WFL No Comments 0-110 AROM Left Knee ROM WFL No Patient Position Supine Comments 5-110 AROM PT-OP-M Strength Start: 03/04/21 13:03 Freq: Status: Active Protocol: Document 03/04/21 13:45 AW (Rec: 03/04/21 17:24 AW [email or web address]) Hip Strength Hip Manual Muscle Testing bilateral Flexion (L2) 4+ Good+ Extension (S1) 4- Good- Abduction 4 Good Adduction 4 Good External Rotation 4 Good Internal Rotation 4 Good Knee Strength Knee Manual Muscle Testing bilateral Flexion (S2) 4+ Good+ Extension (L3) 5 Normal Ankle/Foot Strength Ankle and Foot Manual Muscle Testing bilateral Dorsiflexion (L4) 4+ Good+ Plantarflexion (S1) 4+ Good+ Inversion 4+ Good+ Eversion (S1) 4+ Good+ Comments PF tested in standing with >12 heel lifts bilateraly PT-OP-Q Treatments Start: 03/04/21 13:03 Freq: Status: Active Protocol: Document 03/17/21 13:46 MB (Rec: 03/17/21 14:20 MB [id number]) Neuro Re-Education Treatment Balance Activities Backwards and tandem walking for HEP Comments Added these to HEP today with cues to slide hand along counter (she had been perform tandem gait in this manner and so to add backward walking to this) mCTSIB Comments 20 sec Romberg EC and EO stable surface, Romberg 20 sec EO on unstable surface, LOB after 5 sec with EC on unstable surface Progressive Corner Exercises Comments Pt to con't Romberg with EC in corner at home, re-ed this today FGA Comments Score is 27/30 today, WNLs PT-OP-T Assessment and Plan Start: 03/04/21 13:03 Freq: Status: Active Protocol: Document 03/17/21 13:46 MB (Rec: 03/17/21 14:13 MB [id number]) Physical Therapy Assessment Rehab Potential Rehabilitation Potential Good Evaluation Complexity Number of Personal Factors/Comorbidities 0 Number of Body Systems Impaired 1-2 Clinical Presentation at Evaluation Stable Impairments Impairments Balance,Functional Mobility, Gait,ROM,Strength Goals Four Impairment balance systems integration Toggle Press Operator Goal (LTG) Pt will score 20 seconds or greater in condition 4 mCTSIB 03/17/21: First three positions , pt can hold without LOB for 20 sec. Fourth position: Romberg on unstable surface and EC, LOB posteriorly after 5 sec requiring PT asst LTG Duration Partially Met Three Impairment dynamic balance Prison Goal (LTG) Pt will score 26/30 or greater on FGA to demonstrate improved dynamic balance 03/17/21: FGA score is 27/30, WNLs LTG Duration Met Two Impairment hip strength Short Term Goal (STG) Pt will improve hip strength in all planes to 5/5 03/17/21: B hip flexion, abduction, adduction and extension 02/23 STG Duration Partially Met One Impairment poor self-efficacy for balance Prison Goal (LTG) Pt will score 80% or greater on ABC Scale for improved self -efficacy and fall risk reduction 03/17/21: ABC score reflects 82 .5% confidence LTG Duration Met Assessment Summary Assessment Pt has met FGA and ABC scores since starting PT. She has progressed towards mCTSIB and hip strengthening goals. She states she is ready to d/c and will con't with HEP including hip strengthening and balance exercises as well as VOR exercises. Will d/c PT. Physical Therapy Plan Discharge Physical Therapy Discharge Comments Maximized PT potential, pt is ready/requesting d/c
== END 2021-03-17 15:32 | disposition home or self-care (01) ==
LOC: PHYS 13:45
PROVIDERS: PCP Family Medicine; Referring Provider Family Medicine; Visit Provider Family Medicine
DX: S02.2XXA Fracture of nasal bones, initial encounter for closed fracture (principal); M25.562 Pain in left knee; M25.521 Pain in right elbow; R26.2 Difficulty in walking, not elsewhere classified
CPT/HCPCS: 97112; 97116; 97161

== ENCOUNTER → 2022-01-21 09:15 | Outpatient (CLI) | payer MEDICARE, SELFPAY ==
--- NOTE | 2022-01-21 09:17 | DI.MG.S_ITS ---
UNILATERAL LEFT DIGITAL SCREENING MAMMOGRAM 3D/2D WITH CAD POST MASTECTOMY: 01/21/2022 CLINICAL: Routine screening. Personal history of left breast cancer. Comparison is made to exams dated: 12/22/2020 mammogram, 12/14/2019 mammogram, and 11/23/2018 mammogram - [facility]. The tissue of left breast is heterogeneously dense. This may lower the sensitivity of mammography. Current study was also evaluated with a Computer Aided Detection (CAD) system. There are benign calcifications in the left breast. There also are benign vascular calcifications in the left breast. No significant masses, calcifications, or other findings are seen in the breast. There has been no significant interval change. IMPRESSION: BENIGN There is no mammographic evidence of malignancy. A 1 year screening mammogram is recommended. This exam was interpreted at Station ID: [id number]. NOTE: For mammograms, a report in lay terms will be sent to the patient. Approximately 15% of breast malignancies will not be visualized mammographically. In the management of a palpable breast mass, a negative mammogram must not discourage biopsy of a clinically suspicious lesion. Electronically Signed By: Minnie kirby/phuong:01/21/2022 12:24:53 letter sent: Normal Exam ACR BI-RADS Category 2: Benign Finding(s) 3342F
== END ==
PROVIDERS: PCP Family Medicine; Referring Provider Family Medicine; Visit Provider Family Medicine
DX: Z12.31 Encounter for screening mammogram for malignant neoplasm of breast (principal); Z85.3 Personal history of malignant neoplasm of breast
CPT/HCPCS: 77063; 77067

== ENCOUNTER → 2022-01-29 07:44 | Outpatient (CLI) | payer MEDICARE, SELFPAY ==
[2022-01-29 08:16] LABS: Add Manual Diff / Slide Review NO; Basophils Absolute Auto 100 /uL (0-100); Basophils Percent Auto 1.1 % (0-2); Eosinophils Absolute Auto 300 /uL (0-450); Eosinophils Percent Auto 6.4 % (2-4); Lymphocytes Absolute Auto 1900 /uL (1100-4500); Lymphocytes Percent Auto 37.4 % (25-40); Mean Corpuscular HGB Conc 33.3 % (30-36); Mean Corpuscular Volume 96.2 fL (80-100); Monocytes Absolute Auto 500 /uL (0-900); Monocytes Percent Auto 9.6 % (3-14); Neutrophils Absolute Auto 2300 /uL (1500-7000); Neutrophils Percent Auto 45.5 % (50-75); Platelet Count 327 X10^3/uL (150-400); Red Blood Cell Count 3.43 X10^6/uL (4.0-5.2); Red Cell Distribution Width 14.7 % (11.6-14.8); White Blood Cell Count 5.1 X10^3/uL (4.5-11.0)
[2022-01-29 08:37] LABS: Alanine Aminotransferase 20 IU/L (<35); Albumin 4.2 g/dL (3.5-5.0); Albumin Globulin Ratio 1.4 (1.0-2.8); Alkaline Phosphatase 68 U/L (38-126); Aspartate Aminotransferase 35 IU/L (14-36); Bilirubin Total 0.7 mg/dL (0.2-1.3); Blood Urea Nitrogen 20 mg/dL (7-17); Calcium 9.2 mg/dL (8.4-10.2); Carbon Dioxide 32 mmol/L (22-32); Chloride 105 mmol/L (98-107); Cholesterol 171 mg/dL (140-199); Estimated Glomerular Filt Rate 50.3 mL/min (>60); Globulin 2.9 g/dL (1.7-4.1); Glucose 86 mg/dL (80-110); HDL Cholesterol 98 mg/dL (40-60); HEMOLYSIS < 15 (0-50); LDL Cholesterol Calculated 58 mg/dL (<100); Potassium 4.7 mmol/L (3.4-5.1); Sodium 139 mmol/L (137-145); Total Protein 7.1 g/dL (6.3-8.2); Triglycerides 76 mg/dL (35-150)
== END ==
PROVIDERS: PCP Family Medicine; Referring Provider Family Medicine; Visit Provider Family Medicine
DX: E03.9 Hypothyroidism, unspecified (principal); E78.2 Mixed hyperlipidemia; I10 Essential (primary) hypertension; N18.31 Chronic kidney disease, stage 3a
CPT/HCPCS: 36415; 80053; 80061; 84443; 85025

== ENCOUNTER → 2022-08-03 13:53 | Outpatient (CLI) | payer MEDICARE, SELFPAY ==
--- NOTE | 2022-08-03 13:59 | DI.RAD.S_ITS ---
PROCEDURE: XR LUMBAR SPINE 2-3V INDICATIONS: back pain with left-sided radiculopathy TECHNIQUE: 3 views of the lumbar spine were acquired. COMPARISON: None. FINDINGS: Bones: 5 [id number]-[id number] vertebrae are present. There is gentle levocurvature of the upper lumbar spine. Minimal grade 1 anterolisthesis of L4 on L5. No acute vertebral body compression fractures. No suspicious bony lesions. Multilevel lumbar spondylosis with severe disc space loss throughout most of the lumbar spine. Degenerative endplate changes with prominent endplate osteophytes. Moderate-severe mid and lower lumbar facet arthropathy. Soft tissues: Overlying bowel gas pattern is normal. No suspicious soft tissue calcifications. IMPRESSION: Lumbar spine without acute osseous abnormalities. Severe multilevel lumbar spondylosis and facet arthropathy. Dictated by: Baron Lainez M.D. on 08/03/2022 at 15:50 Approved by: Baron Lainez M.D. on 08/03/2022 at 15:54
[2022-08-03 16:21] LABS: Add Manual Diff / Slide Review NO; Basophils Absolute Auto 100 /uL (0-100); Eosinophils Absolute Auto 300 /uL (0-450); Hematocrit 33.6 % (36-46); Hemoglobin 11.3 g/dL (12.0-16.0); Lymphocytes Absolute Auto 2000 /uL (1100-4500); Lymphocytes Percent Auto 36.1 % (25-40); Mean Corpuscular HGB Conc 33.5 % (30-36); Mean Corpuscular Hemoglobin 31.7 PG (26-34); Mean Corpuscular Volume 94.7 fL (80-100); Monocytes Absolute Auto 600 /uL (0-900); Monocytes Percent Auto 11.6 % (3-14); Neutrophils Absolute Auto 2500 /uL (1500-7000); Neutrophils Percent Auto 46.3 % (50-75); Platelet Count 322 X10^3/uL (150-400); Red Blood Cell Count 3.55 X10^6/uL (4.0-5.2); White Blood Cell Count 5.4 X10^3/uL (4.5-11.0)
[2022-08-03 16:47] LABS: HEMOLYSIS < 15 (0-50); Iron 69 ug/dL (37-170)
[2022-08-03 16:58] LABS: Percent Iron Saturation 26 % (15-50); Total Iron Binding Capacity 270 ug/dL (265-497); Transferrin 230 mg/dL (206-381)
[2022-08-03 17:22] LABS: Ferritin 65 ng/mL (11-264)
[2022-08-03 17:37] LABS: Vitamin B12 683 pg/mL (239-931)
== END ==
PROVIDERS: PCP Family Medicine; Referring Provider Family Medicine; Visit Provider Family Medicine
DX: M47.816 Spondylosis without myelopathy or radiculopathy, lumbar region (principal); D64.9 Anemia, unspecified; E03.9 Hypothyroidism, unspecified; E78.2 Mixed hyperlipidemia; I10 Essential (primary) hypertension; N18.31 Chronic kidney disease, stage 3a
CPT/HCPCS: 36415; 72100; 82607; 82728; 83540; 83550; 85025

== ENCOUNTER → 2022-08-17 09:07 | Outpatient (CLI) | payer MEDICARE, SELFPAY ==
--- NOTE | 2022-08-17 09:09 | DI.MRI.S_ITS ---
PROCEDURE: MR LUMBAR SPINE WO CON INDICATIONS: back pain with left-sided radiculopathy TECHNIQUE: Noncontrast sagittal T1 spin echo and T2 fast echo, sagittal STIR, and T2 fast spin echo through the lumbar spine. In cases with scoliosis, additional coronal T2 fast spin echo may be performed. COMPARISON: None. FINDINGS: Image quality: Excellent. Alignment and Curvature: There is normal bony alignment. Bone Marrow: Modic type 1 degenerative endplate changes noted at L1-2 Spinal Cord: Conus medullaris terminates at the L1 level. Visualized cord demonstrates normal signal and size. Paraspinous Soft Tissues: No paravertebral masses. T12-L1: Normal appearance. L1-L2: Disc space narrowing with posterior disc bulge and hypertrophic facet joints results in moderate central stenosis. Severe right and moderate left foraminal stenosis L2-L3: Disc space narrowing and posterior disc bulge with hypertrophic facet joints results in moderate central stenosis. Moderate right and left foraminal stenosis L3-L4: Disc space narrowing with circumferential disc bulge and hypertrophic facet joints combined with ligamentum flavum laxity to result in moderate central stenosis. Moderate bilateral foraminal stenosis L4-L5: Disc space narrowing, circumferential disc bulge and hypertrophic facet joints combined with ligamentum flavum laxity to result in severe central stenosis. Moderate bilateral foraminal stenosis present. L5-S1: Disc space narrowing with circumferential disc bulge and hypertrophic facet joints present. No central stenosis. Severe bilateral foraminal stenosis present. Sacral perineural 1.5 cm cyst noted with remodeling on the right. IMPRESSION: Multilevel degenerative disc disease and arthropathy results in varying degrees of central and foraminal stenosis including severe central stenosis L4-5 and severe foraminal stenosis at L1-2 and L5-S1 Approved by: Corey Sofia M.D. on 08/17/2022 at 10:09
== END ==
PROVIDERS: PCP Family Medicine; Referring Provider Family Medicine; Visit Provider Family Medicine
DX: M51.16 Intervertebral disc disorders with radiculopathy, lumbar region (principal); M51.17 Intervertebral disc disorders with radiculopathy, lumbosacral region; M47.26 Other spondylosis with radiculopathy, lumbar region; M47.27 Other spondylosis with radiculopathy, lumbosacral region; M48.061 Spinal stenosis, lumbar region without neurogenic claudication; M48.07 Spinal stenosis, lumbosacral region; M54.50 Low back pain, unspecified
CPT/HCPCS: 72148

== ENCOUNTER → 2023-01-28 07:11 | Outpatient (CLI) | payer MEDICARE, SELFPAY ==
--- NOTE | 2023-01-28 07:14 | DI.MG.S_ITS ---
UNILATERAL LEFT DIGITAL SCREENING MAMMOGRAM 3D/2D WITH CAD: 01/28/2023 CLINICAL: Routine screening. Personal history of right breast cancer. Comparison is made to exams dated: 01/21/2022 mammogram, 12/22/2020 mammogram, and 12/21/2019 mammogram - [facility]. The left breast is heterogeneously dense, which may obscure small masses (category c / 51-75% glandular tissue). Current study was also evaluated with a Computer Aided Detection (CAD) system. There are benign calcifications in the left breast. There also are benign vascular calcifications in the left breast. No significant masses, calcifications, or other findings are seen in the breast. There has been no significant interval change. IMPRESSION: BENIGN There is no mammographic evidence of malignancy. A 1 year screening mammogram is recommended. This exam was interpreted at Station ID: [id number]. NOTE: For mammograms, a report in lay terms will be sent to the patient. Approximately 15% of breast malignancies will not be visualized mammographically. In the management of a palpable breast mass, a negative mammogram must not discourage biopsy of a clinically suspicious lesion. Electronically Signed By: Sho roger/phuong:01/28/2023 08:49:33 letter sent: Normal Exam ACR BI-RADS Category 2: Benign Finding(s) 3342F
[2023-01-28 10:30] LABS: Alanine Aminotransferase 25 IU/L (<35); Albumin 4.2 g/dL (3.5-5.0); Albumin Globulin Ratio 1.5 (1.0-2.8); Alkaline Phosphatase 101 U/L (38-126); Aspartate Aminotransferase 36 IU/L (14-36); Bilirubin Total 0.6 mg/dL (0.2-1.3); Blood Urea Nitrogen 18 mg/dL (7-17); Calcium 9.2 mg/dL (8.4-10.2); Carbon Dioxide 30 mmol/L (22-32); Chloride 102 mmol/L (98-107); Cholesterol 179 mg/dL (140-199); Estimated Glomerular Filt Rate 52 mL/min (>60); Globulin 2.8 g/dL (1.7-4.1); Glucose 88 mg/dL (80-110); HDL Cholesterol 102 mg/dL (40-60); HEMOLYSIS < 15 (0-50); LDL Cholesterol Calculated 60 mg/dL (<100); Potassium 5.2 mmol/L (3.4-5.1); Sodium 140 mmol/L (137-145); Triglycerides 83 mg/dL (35-150)
[2023-01-28 14:46] LABS: Creatinine Urine Random 159.7 mg/dL
[2023-01-28 14:53] LABS: Microalbumi Creatinin Ratio Ur 39.4 ug/mg CR (<30); Microalbumin Urine Random 6.3 mg/dL (0-1.6)
== END ==
PROVIDERS: PCP Family Medicine; Referring Provider Family Medicine; Visit Provider Family Medicine
DX: Z12.31 Encounter for screening mammogram for malignant neoplasm of breast (principal); I12.9 Hypertensive chronic kidney disease with stage 1 through stage 4 chronic kidney disease, or unspecified chronic kidney disease; Z85.3 Personal history of malignant neoplasm of breast; N18.31 Chronic kidney disease, stage 3a; E03.9 Hypothyroidism, unspecified; E78.2 Mixed hyperlipidemia; M70.62 Trochanteric bursitis, left hip
CPT/HCPCS: 36415; 77063; 77067; 80053; 80061; 82043; 82570

== ENCOUNTER → 2023-04-22 14:45 | Outpatient (CLI) | payer MEDICARE, SELFPAY ==
--- NOTE | 2023-04-22 14:46 | DI.ECHO.S_ITS ---
[facility]+ [facility] +---------+ : : [address] [place] : : : : [id number] : : : : Phone: [phone]+ Echocardiogram Report + + :Name: JULIO CARSON Study Date: 04/22/2023 Height: 65 in : :[facility] ReadingLocation: Weight: 165 lb : : Gender: Female BSA: 1.8 m2 : :: 1940 Age: 82 yrs BP: 148/77 mmHg: :Reason For Study: Essential Hypertension : :Ordering Physician: Bethany, : :Robin Performed By: Belle Alaniz : :Referring: ROBIN KELLY : + + Interpretation Summary 1) Normal left ventricular thickness, size, wall motion, and systolic function (EF 60-65%). 2) Normal right ventricular size and function. 3) No significant valvular abnormalities. 4) Compared to the Echo done 12/04/2014, no significant change. Procedure: A two-dimensional transthoracic echocardiogram with color flow and Doppler was performed. The study quality was technically adequate. Comparison is made with the echocardiogram of 12/04/2014. The patient was in normal sinus rhythm during the exam. Left Ventricle: The left ventricle is normal in size. Left ventricular wall thickness is normal. The ejection fraction is estimated to be 55-60%. Left ventricular systolic function appears normal without focal wall motion abnormalities. Diastolic parameters suggest a relaxation abnormality of the left ventricle, consistent with probable normal filling pressures. Right Ventricle: The right ventricle is normal size. The right ventricular systolic function is normal. Atria: The left atrial size is normal. Right atrial size is normal. There is no Doppler evidence for an interatrial shunt. Mitral Valve: The mitral valve leaflets appear borderline thickened, but open well. There is mild mitral annular calcification. There is no mitral valve stenosis. There is no mitral regurgitation noted. Aortic Valve: The aortic valve is trileaflet. The aortic valve opens well. There is no aortic valve stenosis. No aortic regurgitation is present. Tricuspid Valve: The tricuspid valve is normal. There is no tricuspid stenosis. There is trace tricuspid regurgitation. Pulmonic Valve: The pulmonic valve leaflets are thin and pliable; valve motion is normal. There is no pulmonic valvular stenosis. There is no pulmonic valvular regurgitation. Great Vessels: The aortic root is normal size. The ascending aorta is normal in size. The pulmonary artery is normal size. The IVC is of normal diameter and collapses greater than 50% with a sniff. This suggests a low right atrial pressure of 3 mm Hg. Pericardium/ Pleura There is no pericardial effusion. There is no pleural effusion. MMode/2D Measurements & Calculations LVIDd: 4.2 cm LVOT diam: 2.0 cm LVIDs: 3.1 cm Ao root diam: 3.0 cm FS: 26.2 % asc Aorta Diam: 3.1 cm EPSS: 0.60 cm IVSd: 0.83 cm LVPWd: 0.95 cm LV ibarra. diameter/BSA (cm/m^2): 2.3 LV sys. diameter/BSA (cm/m^2): 1.7 LA A2 area: 17.9 cm2 RA long axis: 4.5 cm LA A4 area: 15.0 cm2 RA area: 11.8 cm2 LA length (vol): 5.0 cm RA vol: 26.7 ml LA vol: 45.6 ml RA : 14.7 ml/m2 LA vol index: 25.0 ml/m2 IVC diam: 1.9 cm RVD1 (basal): 3.2 cm LVLs ap4: 6.3 cm LVLd ap2: 7.5 cm TAPSE_phl: 2.4 cm LVLs ap2: 5.9 cm Doppler Measurements & Calculations Ao V2 max: 132.0 cm/sec LVOT Max Santy: 118.0 cm/sec Ao V2 mean: 95.2 cm/sec LV V1 max P.6 mmHg Ao max P.0 mmHg LV V1 VTI: 24.3 cm Ao mean P.0 mmHg SRINIVAS(I,D): 2.6 cm2 Ao V2 VTI: 29.0 cm SRINIVAS(V,D): 2.8 cm2 sev ratio: 0.84 SRINIVAS indexed to BSA (cm^2/m^2): 1.4 MV E max santy: 90.8 cm/sec PA V2 max: 106.0 cm/sec MV A max santy: 126.0 cm/sec PA V2 mean: 78.9 cm/sec MV E/A: 0.72 PA mean P.0 mmHg Med Peak E' Santy: 7.4 cm/sec PA pr(Accel): 31.3 mmHg E/E' med: 12.4 Lat Peak E' Santy: 8.5 cm/sec E/E' lat: 10.7 E/e' average: 11.5 MV dec time: 0.17 sec SV(LVOT): 76.3 ml AV VR_phl: 0.89 SRINIVAS(VTI)/BSA_phl: 1.4 Reading Physician:03:26 PM
--- NOTE | 2023-04-22 14:46 | DI.US.S_ITS ---
PROCEDURE: US CAROTID DOPPLER BI INDICATIONS: RIGHT SIDED CAROTID BRUIT AND MILD LEFT SIDE TECHNIQUE: Color and pulse Doppler interrogation was performed of both carotid systems, with image documentation and velocity measurements. COMPARISON: [facility], , THYROID, 12/27/2008, 10:47. FINDINGS: Stenosis calculations are based on SRU (Society of Radiologists in Ultrasound) criteria. Right side: Brachial blood pressure: Unable to obtain Common carotid artery peak systolic velocity: 85.9 cm/sec. Internal carotid artery peak systolic velocity: 87.4 cm/sec. External carotid artery peak systolic velocity: 80.7 cm/sec. ICA/CCA peak systolic ratio: 1.02 . Small scale imaging description: Mild diffuse plaque Percent internal carotid artery stenosis: No significant stenosis. . Vertebral artery: Flow direction is antegrade. Left side: Brachial blood pressure: 180/81 mm Hg. Common carotid artery peak systolic velocity: 80.2 cm/sec. Internal carotid artery peak systolic velocity: 74.6 cm/sec. External carotid artery peak systolic velocity: 100.1 cm/sec. ICA/CCA peak systolic ratio: 1.32 . Small scale imaging description: Mild diffuse plaque. A focal plaque in the left carotid bulb is seen but does not cause significant stenosis. Percent internal carotid artery stenosis: No significant stenosis . Vertebral artery: Flow direction is antegrade. A right thyroid nodule is incidentally noted measuring 3.7 x 2.5 x 2.4 cm. IMPRESSION: 1. No significant stenosis. 2. Right thyroid nodule is unchanged compared to a remote ultrasound in 2008. Dictated by: Campbell Sommer M.D. on 04/22/2023 at 16:37 Approved by: Campbell Sommer M.D. on 04/22/2023 at 16:42
== END ==
PROVIDERS: PCP Family Medicine; Referring Provider Family Medicine; Visit Provider Family Medicine
DX: I10 Essential (primary) hypertension (principal); R09.89 Other specified symptoms and signs involving the circulatory and respiratory systems; R01.1 Cardiac murmur, unspecified; N18.30 Chronic kidney disease, stage 3 unspecified; E78.5 Hyperlipidemia, unspecified; E03.9 Hypothyroidism, unspecified; E04.1 Nontoxic single thyroid nodule
CPT/HCPCS: 93306; 93880

== ENCOUNTER → 2023-04-28 12:51 | Outpatient (CLI) | payer MEDICARE, SELFPAY ==
[2023-04-28 13:48] LABS: Alanine Aminotransferase 26 IU/L (<35); Albumin 4.2 g/dL (3.5-5.0); Albumin Globulin Ratio 1.7 (1.0-2.8); Alkaline Phosphatase 112 U/L (38-126); Aspartate Aminotransferase 36 IU/L (14-36); BUN Creatinine Ratio 19.2 (6-22); Bilirubin Total 0.7 mg/dL (0.2-1.3); Blood Urea Nitrogen 20 mg/dL (7-17); Calcium 9.4 mg/dL (8.4-10.2); Carbon Dioxide 27 mmol/L (22-32); Chloride 103 mmol/L (98-107); Estimated Glomerular Filt Rate 54 mL/min (>60); Globulin 2.5 g/dL (1.7-4.1); Glucose 102 mg/dL (80-110); HEMOLYSIS < 15 (0-50); Potassium 4.9 mmol/L (3.4-5.1); Sodium 137 mmol/L (137-145); Total Protein 6.7 g/dL (6.3-8.2)
[2023-04-28 14:12] LABS: TSH w/ Reflex to FT4 0.93 uIU/mL (0.47-4.68)
== END ==
PROVIDERS: PCP Family Medicine; Referring Provider Family Medicine; Visit Provider Family Medicine
DX: E03.9 Hypothyroidism, unspecified (principal); E78.5 Hyperlipidemia, unspecified; I10 Essential (primary) hypertension; N18.30 Chronic kidney disease, stage 3 unspecified
CPT/HCPCS: 36415; 80053; 82043; 82570; 84443

== ENCOUNTER → 2023-08-25 14:41 | Outpatient (CLI) | payer MEDICARE, SELFPAY ==
--- NOTE | 2023-08-25 14:42 | DI.RAD.S_ITS ---
PROCEDURE: XR HIP W PEL IF DONE LT 2V INDICATIONS: pain in left groin, history of osteoarthritis TECHNIQUE: AP pelvis and lateral view of the left hip acquired. COMPARISON: None. FINDINGS: Bones: Patient is status post right hip arthroplasty, with hardware components in expected positions. The hip joint appears congruent. The visualized bony structures appear intact. Severe left hip osteoarthritic degenerative changes noted without osseous hypertrophy, joint space narrowing and subchondral sclerosis. Soft tissues: Overlying postoperative changes are noted. No suspicious soft tissue densities. IMPRESSION: Severe left hip osteoarthritis. Dictated by: Della Chapman MD, PhD on 08/25/2023 at 16:10 Approved by: Della Chapman MD, PhD on 08/25/2023 at 16:10
== END ==
PROVIDERS: PCP Family Medicine; Referring Provider Family Medicine; Visit Provider Family Medicine
DX: R10.30 Lower abdominal pain, unspecified (principal); M16.12 Unilateral primary osteoarthritis, left hip
CPT/HCPCS: 73502

== ENCOUNTER → 2023-09-28 09:47 | Outpatient (CLI) | payer MEDICARE, SELFPAY ==
[2023-09-28 10:28] LABS: Add Manual Diff / Slide Review NO; Basophils Absolute Auto 0 /uL (0-100); Basophils Percent Auto 0.8 % (0-2); Eosinophils Absolute Auto 200 /uL (0-450); Eosinophils Percent Auto 3.7 % (2-4); Hematocrit 31.1 % (36-46); Hemoglobin 10.7 g/dL (12.0-16.0); Lymphocytes Absolute Auto 1600 /uL (1100-4500); Lymphocytes Percent Auto 28.2 % (25-40); Mean Corpuscular HGB Conc 34.4 % (30-36); Mean Corpuscular Hemoglobin 32.4 PG (26-34); Mean Corpuscular Volume 94.2 fL (80-100); Monocytes Absolute Auto 500 /uL (0-900); Monocytes Percent Auto 8.7 % (3-14); Neutrophils Absolute Auto 3400 /uL (1500-7000); Neutrophils Percent Auto 58.6 % (50-75); Platelet Count 346 X10^3/uL (150-400); White Blood Cell Count 5.8 X10^3/uL (4.5-11.0)
[2023-09-28 10:45] LABS: Alanine Aminotransferase 21 IU/L (<35); Albumin 4.1 g/dL (3.5-5.0); Albumin Globulin Ratio 1.5 (1.0-2.8); Alkaline Phosphatase 76 U/L (38-126); Aspartate Aminotransferase 33 IU/L (14-36); BUN Creatinine Ratio 24.8 (6-22); Bilirubin Total 0.8 mg/dL (0.2-1.3); Blood Urea Nitrogen 30 mg/dL (7-17); Calcium 9.4 mg/dL (8.4-10.2); Carbon Dioxide 27 mmol/L (22-32); Chloride 103 mmol/L (98-107); Estimated Glomerular Filt Rate 45 mL/min (>60); Globulin 2.8 g/dL (1.7-4.1); Glucose 123 mg/dL (80-110); HEMOLYSIS < 15 (0-50); Potassium 4.9 mmol/L (3.4-5.1); Sodium 137 mmol/L (137-145); Total Protein 6.9 g/dL (6.3-8.2)
== END ==
PROVIDERS: PCP Family Medicine; Referring Provider Family Medicine; Visit Provider Family Medicine
DX: E78.5 Hyperlipidemia, unspecified (principal); E03.9 Hypothyroidism, unspecified; M16.12 Unilateral primary osteoarthritis, left hip
CPT/HCPCS: 36415; 80053; 85025

== ENCOUNTER → 2023-11-24 11:13 | Outpatient (CLI) | payer OTHER, SELFPAY ==
[2023-11-24 11:58] LABS: Add Manual Diff / Slide Review NO; Basophils Absolute Auto 0 /uL (0-100); Basophils Percent Auto 0.9 % (0-2); Eosinophils Absolute Auto 300 /uL (0-450); Eosinophils Percent Auto 5.8 % (2-4); Hematocrit 34.4 % (36-46); Hemoglobin 11.5 g/dL (12.0-16.0); Lymphocytes Absolute Auto 1400 /uL (1100-4500); Lymphocytes Percent Auto 24.7 % (25-40); Mean Corpuscular HGB Conc 33.5 % (30-36); Mean Corpuscular Hemoglobin 31.6 PG (26-34); Mean Corpuscular Volume 94.2 fL (80-100); Monocytes Absolute Auto 500 /uL (0-900); Monocytes Percent Auto 8.4 % (3-14); Neutrophils Absolute Auto 3400 /uL (1500-7000); Neutrophils Percent Auto 60.2 % (50-75); Platelet Count 336 X10^3/uL (150-400); Red Blood Cell Count 3.65 X10^6/uL (4.0-5.2); Red Cell Distribution Width 14.1 % (11.6-14.8); White Blood Cell Count 5.6 X10^3/uL (4.5-11.0)
[2023-11-24 12:19] LABS: Alanine Aminotransferase 21 IU/L (<35); Albumin 4.3 g/dL (3.5-5.0); Albumin Globulin Ratio 1.4 (1.0-2.8); Alkaline Phosphatase 98 U/L (38-126); BUN Creatinine Ratio 17.1 (6-22); Bilirubin Total 0.7 mg/dL (0.2-1.3); Blood Urea Nitrogen 19 mg/dL (7-17); Calcium 9.6 mg/dL (8.4-10.2); Carbon Dioxide 29 mmol/L (22-32); Chloride 103 mmol/L (98-107); Cholesterol 185 mg/dL (140-199); Estimated Glomerular Filt Rate 49 mL/min (>60); Globulin 3.1 g/dL (1.7-4.1); Glucose 103 mg/dL (80-110); HDL Cholesterol 108 mg/dL (40-60); HEMOLYSIS < 15 (0-50); LDL Cholesterol Calculated 46 mg/dL (<100); Sodium 137 mmol/L (137-145); Total Protein 7.4 g/dL (6.3-8.2); Triglycerides 155 mg/dL (35-150)
[2023-11-24 12:21] LABS: HEMOLYSIS < 15 (0-50); Iron 79 ug/dL (37-170)
[2023-11-24 12:31] LABS: Percent Iron Saturation 32 % (15-50); Total Iron Binding Capacity 246 ug/dL (265-497); Transferrin 239 mg/dL (206-381)
[2023-11-24 12:48] LABS: Ferritin 60 ng/mL (11-264)
[2023-11-24 13:02] LABS: Vitamin B12 940 pg/mL (239-931)
[2023-11-24 17:21] LABS: Creatinine Urine Random 119.8 mg/dL; Microalbumi Creatinin Ratio Ur 58.4 ug/mg CR (<30)
[2023-11-25 05:01] LABS: Apolipoprotein B 53 mg/dL (<90)
[2023-11-25 15:09] LABS: Aspartate Aminotransferase 39 IU/L (14-36)
== END ==
PROVIDERS: PCP Family Medicine; Referring Provider Family Medicine; Visit Provider Family Medicine
DX: I10 Essential (primary) hypertension (principal); N18.30 Chronic kidney disease, stage 3 unspecified; E78.5 Hyperlipidemia, unspecified; E03.9 Hypothyroidism, unspecified; M16.12 Unilateral primary osteoarthritis, left hip; D64.9 Anemia, unspecified
CPT/HCPCS: 36415; 80053; 80061; 82043; 82172; 82570; 82607; 82728; 83540; 83550; 85025

== ENCOUNTER → 2024-03-12 13:46 | Outpatient (CLI) | payer MEDICARE, SELFPAY ==
--- NOTE | 2024-03-12 13:47 | DI.MG.S_ITS ---
UNILATERAL LEFT DIGITAL SCREENING MAMMOGRAM 3D/2D WITH CAD: 03/12/2024 CLINICAL: Routine screening. Breast cancer. Comparison is made to exams dated: 01/28/2023 mammogram, 01/21/2022 mammogram, and 12/22/2020 mammogram - [facility]. There are scattered areas of fibroglandular density in the left breast (category b / 25%-50% glandular tissue). Current study was also evaluated with a Computer Aided Detection (CAD) system. There are benign calcifications in the left breast. There also are benign vascular calcifications in the left breast. No significant masses, calcifications, or other findings are seen in the breast. There has been no significant interval change. IMPRESSION: BENIGN There is no mammographic evidence of malignancy. A 1 year screening mammogram is recommended. This exam was interpreted at Station ID: [id number]. NOTE: For mammograms, a report in lay terms will be sent to the patient. Approximately 15% of breast malignancies will not be visualized mammographically. In the management of a palpable breast mass, a negative mammogram must not discourage biopsy of a clinically suspicious lesion. Electronically Signed By: Minnie kirby/phuong:03/12/2024 15:47:51 letter sent: Normal Exam ACR BI-RADS Category 2: Benign Finding(s) 3342F
== END ==
LOC: MAMMO 13:46
PROVIDERS: PCP Family Medicine; Referring Provider Family Medicine; Visit Provider Family Medicine
DX: Z12.31 Encounter for screening mammogram for malignant neoplasm of breast (principal); R92.322 Mammographic fibroglandular density, left breast; Z85.3 Personal history of malignant neoplasm of breast
CPT/HCPCS: 77063; 77067

== ENCOUNTER 2024-05-11 11:35 | Day surgery (SDC) | payer MEDICARE, SELFPAY ==
--- NOTE | 2024-05-11 | PATH_ITS ---
[facility] Accession Number: [id number] No. of containers..02 Tissue . 01 Material submitted: . PART A: pylorus - PYLORUS PART B: colon - ASCENDING POLYP . 01 Diagnosis: A. GASTRIC PYLORUS, BIOPSY: Gastric antral and duodenal mucosa with mild chronic inflammation. Negative for Helicobacter organisms by immunohistochemistry. Goblet cells present; please see comment. Negative for dysplasia and malignancy. . B. ASCENDING COLON POLYP: Small serrated lesion, consistent with early sessile serrated adenoma. [facility] 05/17/2024 1114 Local . 01 Comment: A. The presence of goblet cells in the pyloric biopsy are consistent with either sampling of the pyloric duodenal junction versus focal gastric intestinal metaplasia of the antrum. Correlation with endoscopic findings is recommended to make this distinction. . 01 Electronically signed: . Lamonte Munguia MD, PhD, Pathologist NPI- [id number] . 01 Gross description: . A. Received in formalin with two patient identifiers and pylorus, are multiple rolle soft tissue fragments aggregating to 0.8 x 0.2 x 0.1 cm. Filtered and submitted entirely in A1. B. Received in formalin with two patient identifiers and ascending polyps, are two rolle soft tissue fragments, both measuring 0.4 cm in greatest dimension. Submitted entirely in B1. (KB:[id number]) /MRV 05/14/2024 1810 Local . 01 Microscopic: . A. An immunohistochemical stain was performed to evaluate for Helicobacter organisms and is negative. The control stain showed appropriate reactivity. . . * This test was developed and its performance characteristics determined by [facility]. It has not been cleared or approved by the U.S. Food and Drug Administration. The FDA has determined that such clearance or approval is not necessary. This test is used for clinical purposes. It should not be regarded as investigational or for research. . 01 Pathologist provided ICD-10: D12.2, K29.70 . 01 CPT . 100174, 125819, V31681 Specimen Comment: A courtesy copy of this report has been sent to [phone] Performed at: [address] [facility] [address], [place], [place] [id number] MD Anuj Vallecillo MD Phone: [phone]
[2024-05-11 11:59] VITALS: BP 143/79; PULSE 94; RESP 18; TEMP 37.1; O2SAT 99
[2024-05-11] MEDS: LACTATED RINGERS 1,000 ML 42 ML IV (12:10)
--- NOTE | 2024-05-11 12:49 | PM.HP.1 ---
History of Present Illness History of Present Illness Date Patient Seen: 05/11/24 Time Patient Seen: 12:49 Chief complaint: EGD/Colonoscopy Narrative: 83-year-old woman with anemia here for upper and lower endoscopy. No interval changes in health [facility] Medical History Osteoarthritis of left hip Medicare annual wellness visit, subsequent Hypertension CKD (chronic kidney disease) stage 3, GFR 30-59 ml/min Osteoarthritis, multiple sites Osteoporosis Hyperlipidemia Hypothyroidism Mass of soft tissue of left lower extremity Lower extremity edema Social History marital status: unknown household members: none lives independently: Yes occupational status: unemployed Smoking Status: Former smoker alcohol intake: current substance use type: does not use Meds Home Medications and Allergies Home Medications Medication Instructions Recorded Confirmed Type MULTIVITAMIN (Multivitamin 1 cap PO EVERY DAY ##0 07/24/10 03/16/24 History -) Vitamin E (Alpha-Tocopherol) 400 unit PO QDAY ##0 07/24/10 03/16/24 History [CoQ10] 300 mg PO QDAY ##0 07/24/10 05/11/24 History [VITAMIN B-50 COMPLEX] PO QDAY ##0 07/24/10 03/16/24 History zolpidem 5 mg tablet 2.5 mg (1/2 x 5 mg) PO HS PRN 08/23/22 05/11/24 Rx insomnia #30 tabs acetaminophen 500 mg tablet 500 mg PO Q6H PRN Pain (Scale 03/31/23 05/11/24 History (Tylenol Extra Strength) Score 4-6) amlodipine 5 mg tablet 7.5 mg (1.5 x 5 mg) PO DAILY #135 06/02/23 05/11/24 Rx tabs meloxicam 7.5 mg tablet 7.5 mg PO DAILY #90 tabs 11/16/23 05/11/24 Rx levothyroxine 75 mcg tablet 75 mcg PO QAM #90 tabs 12/02/23 05/11/24 Rx (Synthroid) raloxifene 60 mg tablet See Rx Instructions .Route 02/09/24 05/11/24 Rx .COMPLEX #90 tabs tolterodine 4 mg capsule,extended See Rx Instructions .Route 04/27/24 05/11/24 Rx release 24 hr .COMPLEX #90 caps Allergies Allergy/AdvReac Type Severity Reaction Status Date / Time morphine [MORPHINE] Allergy Mild Vomiting Verified 05/11/24 11:52 Exam Vital Signs (past 8 hours): - 05/11/24 11:59 Temperature 98.8 F Pulse Rate 94 H Respiratory Rate 18 Blood Pressure 143/79 H Pulse Oximetry 99 Oxygen Delivery Method Room Air Oxygen Flow Rate 0 Oxygen Delivery Method Room Air Oxygen Flow Rate 0 Narrative Exam Narrative: General adult woman alert oriented no acute distress Chest nonlabored respiration Extremities warm well perfused Assessment & Plan Assessment & Plan narrative: 83-year-old woman with anemia here for diagnostic esophagogastroduodenoscopy and colonoscopy. Technical details were discussed. Risks, benefits, alternatives explained. Risks including but not limited to myocardial infarction, aspiration, bleeding, pain, missed lesion, incomplete examination, need for further radiographic studies, intestinal injury, and need for major abdominal surgery were discussed. All questions were answered to their satisfaction, and they are in agreement with this plan.
--- NOTE | 2024-05-11 13:26 | P.OP.COLON_ITS ---
Operative Date/Time/Diagnoses Date of procedure: 05/11/24 Time of procedure: 13:26 Pre-op diagnosis: Anemia Post-op diagnosis: other (Duodenitis, colonic polyp) Procedure & Clinicians Study performed: Esophagogastroduodenoscopy and colonoscopy polypectomy Same procedure as scheduled: Yes Indications: 83-year-old woman with anemia here for upper and lower endoscopy Surgeon: Tay Pierson Procedure Notes Procedure in detail: The history and physical was performed/updated and the patient is ASA class is 2. The procedure was discussed in detail with the patient. Potential risks complications including infection, bleeding, missed diagnosis, perforation, need for surgery, and were explained. Their questions were answered and informed consent was obtained. Patient placed in left lateral decubitus position. Time out was performed. Procedural sedation was administered by Anesthesia. A bite block was placed. the scope was inserted into the mouth and advanced through the esophagus and into the stomach. The pylorus was intubated and the duodenum was examined to the 2nd portion. The scope was then withdrawn into the stomach and was retroflexed. The stomach was decompressed and scope was withdrawn slowly through the esophagus. Examination began with a thorough inspection of the perianal area there was no evidence of fissures, fistulae, external hemorrhoids or cutaneous malignancy. The colonoscopy scope was then placed into the anal canal and was advanced to the cecum, which was identified by the ileocecal valve, the appendiceal orifice and the confluence of the taenia. The scope was then slowly withdrawn examining colon thoroughly in all directions, irrigating it of any residual stool. The scope was retroflexed within the rectum The patient tolerated the procedure well. They will be discharged once criteria are met. The prep was of good/excellent quality. The withdrawl time was 7 minutes. FINDINGS * Moderate duodenitis in the 1st portion of the duodenal. Biopsy performed with forceps * 8 mm polyp in the ascending colon removed with cold snare * Internal hemorrhoids The patient tolerated the procedure well and will be discharged when they meet criteria. Specimen(s): other (Ascending colon, pyloric biopsy) Impression: Duodenitis, colonic polyp x1 Post-procedure Plan for aftercare: Follow-up is dependent on pathology findings. Omeprazole 20 mg daily for 1 month Disposition: same day surgery
[2024-05-11 13:30] VITALS: BP 120/65; PULSE 87; RESP 14; TEMP 36.4; O2SAT 97
[2024-05-11 13:34] VITALS: BP 129/62; PULSE 105; RESP 11; O2SAT 99
[2024-05-11 13:37] VITALS: BP 129/69; PULSE 89; RESP 14; TEMP 37; O2SAT 96
[2024-05-11 13:40] VITALS: BP 140/71; PULSE 94; RESP 14; O2SAT 97
--- NOTE | 2024-05-11 14:08 | SUR.PHASEII ---
iv removed by tiffanie kaur pct
== END 2024-05-11 14:04 | disposition home or self-care (01) ==
PROVIDERS: PCP Family Medicine; Referring Provider Surgery; Visit Provider Surgery
PROC: 0DJ08ZZ Inspection of Upper Intestinal Tract, Via Natural or Artificial Opening Endoscopic (ICD-10-PCS; CPT 45385; principal; 2024-05-11 12:30)
PROC: 0DJD8ZZ Inspection of Lower Intestinal Tract, Via Natural or Artificial Opening Endoscopic (ICD-10-PCS; CPT 45378; 2024-05-11 12:30)
DX: K29.80 Duodenitis without bleeding (principal); K64.8 Other hemorrhoids; K29.50 Unspecified chronic gastritis without bleeding; D12.2 Benign neoplasm of ascending colon
CPT/HCPCS: 45385; 43235; J2704

== ENCOUNTER → 2024-07-31 13:34 | Outpatient (CLI) | payer MEDICARE, SELFPAY ==
--- NOTE | 2024-07-31 13:36 | DI.RAD.S_ITS ---
PROCEDURE: XR HIP W PEL IF DONE RT 2V INDICATIONS: Acute Right hip pain, h/o Right ALICIA TECHNIQUE: AP pelvis and lateral view of the hip acquired. COMPARISON: [facility], JASS, XR HIP W PEL IF DONE LT 2V, 08/25/2023, 14:46. FINDINGS: Bones: Patient is status post bilateral total hip prostheses, with hardware components in expected positions. The hip joint appears congruent. The visualized bony structures appear intact. Soft tissues: Overlying postoperative changes are noted. No suspicious soft tissue densities. IMPRESSION: <<Expected post-operative appearance total bilateral hip arthroplasty Dictated by: Ayden Nelson M.D. on 08/01/2024 at 16:09 Approved by: Ayden Nelson M.D. on 08/01/2024 at 16:11
== END ==
PROVIDERS: PCP Family Medicine; Referring Provider Family Medicine; Visit Provider Family Medicine
DX: M25.551 Pain in right hip (principal); Z96.643 Presence of artificial hip joint, bilateral
CPT/HCPCS: 73502

== ENCOUNTER 2024-09-07 16:34 | Observation (INO) | payer MEDICARE, SELFPAY ==
[2024-09-07 16:45] VITALS: BP 197/86; PULSE 104; RESP 16; TEMP 36.4; O2SAT 98; BMI 27.4
--- NOTE | 2024-09-07 16:48 | DI.RAD.S_ITS ---
PROCEDURE: XR HIP W PEL IF DONE LT 2V INDICATIONS: fall, left hip pain TECHNIQUE: AP pelvis with AP and frogleg lateral view(s) of the left hip(s). COMPARISON: [facility], CR, XR PELVIS WITH LATERAL HIP LEFT, 07/26/2024, 12:29. [facility], CR, XR HIP W PEL IF DONE RT 2V, 07/31/2024, 13:38. FINDINGS: Bones: There is a new lucency seen involving the lateral inferior aspect of the left greater trochanter. Bilateral hip arthroplasty hardware is seen, which of the bear appears intact. Age-appropriate lower lumbar spine degenerative changes are noted. Soft tissues: The visualized bowel gas pattern is normal. No suspicious soft tissue calcifications. IMPRESSION: Suspicion for a mildly displaced fracture of the left greater trochanter. Dictated by: Gee Horton M.D. on 09/07/2024 at 16:57 Approved by: Gee Horton M.D. on 09/07/2024 at 16:59
[2024-09-07] MEDS: ACETAMINOPHEN 325 MG TABLET 975 MG PO (19:49)
--- NOTE | 2024-09-07 19:53 | PC.NURSE ---
Patient unable to bear weight with out severe pain. Ambulation trial failed.
--- NOTE | 2024-09-07 20:16 | DI.CT.S_ITS ---
PROCEDURE: CT LE LT W CON INDICATIONS: greater troch fx, painful to walk, ?hardware loosening TECHNIQUE: Noncontrast 3 mm axial sections acquired through the bony pelvis. Additional 3 mm axial sections acquired through the symptomatic hip joint, with coronal and sagittal reformats. COMPARISON: [facility], CR, XR PELVIS WITH LATERAL HIP LEFT, 02/09/2024, 11:35. [facility], CR, XR HIP W PEL IF DONE LT 2V, 09/07/2024, 17:01. [facility], CR, XR HIP W PEL IF DONE RT 2V, 07/31/2024, 13:38. FINDINGS: Image quality: Fair; streak artifact from the arthroplasties limits evaluation Bones: Compared to 07/31/2024, there is a new, minimally displaced periprosthetic fracture of the left femur greater trochanter Joints: Status post bilateral total hip arthroplasties. Moderate left hip joint effusion (8/43). Mild left sacroiliac joint osteoarthritis. Muscles: Mild diffuse muscle atrophy. Vessels: No aneurysmal dilatation of the visualized vasculature. Mild atherosclerosis. Lymph nodes: No bilateral inguinal or lower retroperitoneal lymphadenopathy. Other soft tissues: Scattered colonic diverticulosis. Otherwise, intrapelvic contents are within normal limits. Other: Soft tissue fat stranding along the left lateral thigh subcutaneous tissues with a small ovoid 2.2 cm hematoma (8/43). Small amount of fluid in the left greater trochanteric bursa (8/42). IMPRESSION: 1. Status post bilateral total hip arthroplasties with a periprosthetic fracture of the left femoral greater trochanter, without hardware loosening. 2. Moderate left hip joint effusion and associated soft tissue bruising, likely posttraumatic. 3. Mild left greater trochanteric bursitis. Dictated by: Mack Broussard M.D. on 09/07/2024 at 22:12 Approved by: Mack Broussard M.D. on 09/07/2024 at 22:19
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
[2024-09-07] MEDS: ONDANSETRON 4 MG ODT SL (23:26)
[2024-09-07] MEDS: OXYCODONE IR 10 MG TABLET PO (23:26)
[2024-09-08] VITALS (15 sets, daily range): BP systolic 127–155; BP diastolic 51–76; PULSE 85–107; RESP 14–19; TEMP 36.3–36.8; O2SAT 91–99; BMI 28.2
--- NOTE | 2024-09-08 00:44 | PC.NURSE ---
After oxycodone, pt was able to take a few steps, relying heavily on walker and only able to partially bear weight. Pt states she doesn't feel safe going home where she lives alone.
[2024-09-08 01:36] LABS: Add Manual Diff / Slide Review NO; Basophils Absolute Auto 100 /uL (0-100); Basophils Percent Auto 1.5 % (0-2); Eosinophils Absolute Auto 0 /uL (0-450); Eosinophils Percent Auto 0.4 % (2-4); Hematocrit 28.7 % (36-46); Hemoglobin 9.8 g/dL (12.0-16.0); Lymphocytes Absolute Auto 900 /uL (1100-4500); Lymphocytes Percent Auto 10.5 % (25-40); Mean Corpuscular Hemoglobin 32.6 PG (26-34); Monocytes Absolute Auto 400 /uL (0-900); Monocytes Percent Auto 5.3 % (3-14); Neutrophils Absolute Auto 6900 /uL (1500-7000); Neutrophils Percent Auto 82.3 % (50-75); Platelet Count 254 X10^3/uL (150-400); Red Blood Cell Count 2.99 X10^6/uL (4.0-5.2); Red Cell Distribution Width 14.2 % (11.6-14.8); White Blood Cell Count 8.3 X10^3/uL (4.5-11.0)
[2024-09-08 01:45] LABS: Alanine Aminotransferase 22 IU/L (<35); Albumin 3.6 g/dL (3.5-5.0); Albumin Globulin Ratio 1.3 (1.0-2.8); Alkaline Phosphatase 82 U/L (38-126); Aspartate Aminotransferase 34 IU/L (14-36); BUN Creatinine Ratio 22.1 (6-22); Bilirubin Total 0.8 mg/dL (0.2-1.3); Blood Urea Nitrogen 23 mg/dL (7-17); Carbon Dioxide 27 mmol/L (22-32); Chloride 105 mmol/L (98-107); Estimated Glomerular Filt Rate 53 mL/min (>60); Globulin 2.7 g/dL (1.7-4.1); Glucose 136 mg/dL (80-110); HEMOLYSIS < 15 (0-50); Sodium 135 mmol/L (137-145); Total Protein 6.3 g/dL (6.3-8.2)
[2024-09-08] MEDS: KETOROLAC 30 MG/ML VIAL 15 MG IV (02:40)
--- NOTE | 2024-09-08 06:29 | PM.HP.1 ---
History of Present Illness History of Present Illness Chief complaint: fall, left hip injury Narrative: 83-year-old female with past medical history of dyslipidemia, CKD stage III, hypertension and prior bilateral hip replacement presents with a fall. Per the patient's report, the patient had a mechanical fall and fell onto her left side. The patient started to have severe left hip pain and unable to bear weight on it. The patient did try to take some Tylenol at home, but did not help with the pain. Otherwise the patient denies any head injury, loss of consciousness, nausea, vomiting, diarrhea, chest pain, or shortness of breath. In our emergency room, the patient was hemodynamically stable. Labs were relatively benign. Imaging CT of the hip shows fracture of the left femoral greater trochanter without hardware loosening. Orthopedic surgeon was called by the ER physician who said that this is non-surgical and recommended to admit for pain control with PT/OT. Orthopedic surgery is available consult if needed. [facility] Medical History Osteoarthritis of left hip Medicare annual wellness visit, subsequent Hypertension CKD (chronic kidney disease) stage 3, GFR 30-59 ml/min Osteoarthritis, multiple sites Osteoporosis Hyperlipidemia Hypothyroidism Mass of soft tissue of left lower extremity Lower extremity edema Social History marital status: unknown household members: none lives independently: Yes occupational status: unemployed Smoking Status: Former smoker alcohol intake: current substance use type: does not use Meds Home Medications and Allergies Home Medications Medication Instructions Recorded Confirmed Type MULTIVITAMIN (Multivitamin 1 cap PO EVERY DAY ##0 07/24/10 03/16/24 History -) Vitamin E (Alpha-Tocopherol) 400 unit PO QDAY ##0 07/24/10 03/16/24 History [CoQ10] 300 mg PO QDAY ##0 07/24/10 05/11/24 History [VITAMIN B-50 COMPLEX] PO QDAY ##0 07/24/10 03/16/24 History zolpidem 5 mg tablet 2.5 mg (1/2 x 5 mg) PO HS PRN 08/23/22 09/08/24 Rx insomnia #30 tabs acetaminophen 500 mg tablet 500 mg PO Q6H PRN Pain (Scale 03/31/23 09/08/24 History (Tylenol Extra Strength) Score 4-6) levothyroxine 75 mcg tablet 75 mcg PO QAM #90 tabs 12/02/23 09/08/24 Rx (Synthroid) tolterodine 4 mg capsule,extended See Rx Instructions .Route 07/24/24 09/08/24 Rx release 24 hr .COMPLEX #90 caps raloxifene 60 mg tablet 60 mg PO DAILY #90 tabs 08/07/24 09/08/24 Rx meloxicam 7.5 mg tablet 7.5 mg PO DAILY #90 tabs 08/13/24 09/08/24 Rx FB-ikrooeoqjcf-vtfkis ox-Zn ER 500 500 tab PO BEDTIME 09/08/24 09/08/24 History mcg-750 mg-1.5 mg-25 mg tablet,ER amlodipine 5 mg tablet 7.5 mg PO BEDTIME 09/08/24 09/08/24 History Allergies Allergy/AdvReac Type Severity Reaction Status Date / Time morphine [MORPHINE] Allergy Mild Vomiting Verified 09/07/24 16:48 Review of Systems Review of Systems ROS: Yes All systems reviewed with the patient and are negative except as otherwise documented Exam Vital Signs (past 8 hours): - 09/08/24 00:22 09/08/24 00:30 09/08/24 00:45 Temperature Pulse Rate 105 H 107 H Respiratory Rate Blood Pressure 155/76 H Pulse Oximetry 92 94 Oxygen Delivery Method Room Air Oxygen Flow Rate 09/08/24 00:45 09/08/24 00:48 09/08/24 00:48 Temperature Pulse Rate 105 H Respiratory Rate Blood Pressure 148/70 H Pulse Oximetry 95 93 Oxygen Delivery Method Oxygen Flow Rate 09/08/24 01:00 09/08/24 01:00 09/08/24 01:30 Temperature Pulse Rate 100 H Respiratory Rate Blood Pressure 127/61 127/59 L Pulse Oximetry 95 Oxygen Delivery Method Oxygen Flow Rate 09/08/24 01:30 09/08/24 02:00 09/08/24 02:00 Temperature Pulse Rate 98 H 90 Respiratory Rate Blood Pressure 145/67 H Pulse Oximetry 91 93 Oxygen Delivery Method Room Air Oxygen Flow Rate 09/08/24 02:30 09/08/24 02:30 09/08/24 03:00 Temperature Pulse Rate 86 Respiratory Rate Blood Pressure 141/67 H 150/69 H Pulse Oximetry 95 Oxygen Delivery Method Oxygen Flow Rate 09/08/24 03:00 09/08/24 03:30 09/08/24 03:30 Temperature Pulse Rate 90 90 Respiratory Rate Blood Pressure 128/60 Pulse Oximetry 94 92 Oxygen Delivery Method Oxygen Flow Rate 09/08/24 04:00 09/08/24 04:00 09/08/24 04:35 Temperature 97.4 F L Pulse Rate 93 H 101 H Respiratory Rate 19 Blood Pressure 136/64 154/68 H Pulse Oximetry 92 95 Oxygen Delivery Method Room Air Oxygen Flow Rate 0 Oxygen Delivery Method Room Air Oxygen Flow Rate 0 Narrative Exam Narrative: Physical Exam: GENERAL: The patient is not in any acute distressed. Awake and alert. HEENT: Nonicteric sclerae, PERRLA, EOMI. Oropharynx clear. Moist mucous membranes. Conjunctivae appear well perfused. HEART: Regular rate and rhythm without murmurs. No lower extremities edema. LUNGS: Clear to auscultation bilaterally. No wheezing, crackles or rhonchi ABDOMEN: Soft, positive bowel sounds, nontender. SKIN: No rash, no excessive bruising, petechiae, or purpura. NEUROLOGIC: Limimted movement in left leg due to hip pain. AxO x 3. Cranial nerves II-XII intact without motor/sensory deficit. Objective Labs 09/08/24 01:20 09/08/24 01:20 Labs: Laboratory Results - last 24 hr 09/08/24 01:20 WBC 8.3 RBC 2.99 L Hgb 9.8 L Hct 28.7 L MCV 96.0 MCH 32.6 MCHC 34.0 RDW 14.2 Plt Count 254 Neut % (Auto) 82.3 H Lymph % (Auto) 10.5 L [place] % (Auto) 5.3 Eos % (Auto) 0.4 L Baso % (Auto) 1.5 Neut # (Auto) 6900 Lymph # (Auto) 900 L [place] # (Auto) 400 Eos # (Auto) 0 Baso # (Auto) 100 Sodium 135 L Potassium 4.0 Chloride 105 Carbon Dioxide 27 BUN 23 H Creatinine 1.04 Estimated GFR 53 L BUN/Creatinine Ratio 22.1 H Glucose 136 H Calcium 9.0 Total Bilirubin 0.8 AST 34 ALT 22 Alkaline Phosphatase 82 Total Protein 6.3 Albumin 3.6 Globulin 2.7 Albumin/Globulin Ratio 1.3 Assessment & Plan Assessment & Plan narrative: Fall with left greater trochanter fracture. Admit the patient to medical floor under observation. Note the patient state it was a mechanical fall. Orthopedics surgery was consulted and state that this is non-surgical and recommended PTOT and pain control. Orthopedic surgery is available for consult if needed. CKD stage III. Cr at baseline continue to monitor. Hypertension. Resume home amlodipine. Hypothyroidism. Resume home Synthroid. DVT prophylaxis heparin. Code status full code Disposition likely home versus rehab in one to two days. Time-Based Coding :: [TOTAL MINUTES] spent with patient and on the chart (including review of chart, obtaining history, exam, reviewing outside data, placing orders, documenting exam and treatment plan, and counseling patient) on [DATE].
[2024-09-08 06:50] LABS: Add Manual Diff / Slide Review NO; Basophils Absolute Auto 0 /uL (0-100); Basophils Percent Auto 0.5 % (0-2); Eosinophils Absolute Auto 100 /uL (0-450); Eosinophils Percent Auto 1.1 % (2-4); Hematocrit 28.1 % (36-46); Hemoglobin 9.7 g/dL (12.0-16.0); Lymphocytes Absolute Auto 1000 /uL (1100-4500); Mean Corpuscular HGB Conc 34.3 % (30-36); Mean Corpuscular Hemoglobin 32.9 PG (26-34); Mean Corpuscular Volume 95.9 fL (80-100); Monocytes Absolute Auto 500 /uL (0-900); Monocytes Percent Auto 7.1 % (3-14); Neutrophils Absolute Auto 5000 /uL (1500-7000); Neutrophils Percent Auto 76.3 % (50-75); Platelet Count 244 X10^3/uL (150-400); Red Blood Cell Count 2.93 X10^6/uL (4.0-5.2); Red Cell Distribution Width 14.6 % (11.6-14.8); White Blood Cell Count 6.5 X10^3/uL (4.5-11.0)
[2024-09-08 07:02] LABS: BUN Creatinine Ratio 20.6 (6-22); Blood Urea Nitrogen 22 mg/dL (7-17); Calcium 8.9 mg/dL (8.4-10.2); Carbon Dioxide 28 mmol/L (22-32); Chloride 106 mmol/L (98-107); Estimated Glomerular Filt Rate 52 mL/min (>60); Glucose 113 mg/dL (80-110); HEMOLYSIS < 15 (0-50); Potassium 3.7 mmol/L (3.4-5.1); Sodium 138 mmol/L (137-145)
[2024-09-08] MEDS: LEVOTHYROXINE 75 MCG TABLET PO (08:10)
[2024-09-08] MEDS: HEPARIN 5,000 UNIT/ML VIAL 5000 UNIT SUBCUT ×2 (08:17→20:14)
[2024-09-08] MEDS: OXYBUTYNIN 5 MG ER TAB 10 MG PO (08:18)
--- NOTE | 2024-09-08 11:45 | PT.IIE ---
Medical History (Last Reviewed 09/07/24 @ 23:02 by Diane Ortega DO) CKD (chronic kidney disease) stage 3, GFR 30-59 ml/min Hyperlipidemia Hypertension Hypothyroidism Lower extremity edema Mass of soft tissue of left lower extremity Medicare annual wellness visit, subsequent Osteoarthritis of left hip Osteoarthritis, multiple sites Osteoporosis Physical Therapy Inpatient Evaluation/Re-Eval M1 PT/OT-IP Prior Functional Status Start: 09/08/24 12:53 Freq: NEEDED Status: Active Protocol: Document 09/08/24 11:45 AB (Rec: 09/08/24 13:04 AB [id number]) Medical Review Prior Functional Status Medical History Reviewed Yes Communication able to make needs known Mobility and Gait pt stated that she was indpeendent witha ll mobilities and ambulation without AD Social History Household Members none Living Arrangements House Number of Floors (Floors) Two Floors Number of Stairs To Enter/Railing? pt stays on the main level of the house has 3 steps L rail ascending to enter the house Home Environment Standard Height Toilet,Walk in Shower Home Equipment Hand Held Shower,Grab Bars In Shower Additional Social History Comment pt works for the [employer] and can get DMEs: pt will borrow a FWW, bedside commode and shower chair M2 PT-IP Current Condition Start: 09/08/24 12:53 Freq: NEEDED Status: Active Protocol: Document 09/08/24 11:45 AB (Rec: 09/08/24 13:04 AB [id number]) Physical Therapy Current Condition Current Condition Evaluation Date 09/08/24 Treatment Diagnosis s/p fall; L periprosthetic fx of greater trochanger; difficulty in walking Onset Date 09/08/24 M3 PT-IP Subjective Start: 09/08/24 12:53 Freq: NEEDED Status: Active Protocol: Document 09/08/24 11:45 AB (Rec: 09/08/24 13:04 AB [id number]) Subjective Physical Therapy Visit Type Type Initial Evaluation Visit Start Time 11:45 Visit Stop Time 12:35 Number of FINISH MIXER Visits 0 Physical Therapy Visit Comments Patient Comments agreeable to do PT Therapy Pain Assessment Pain When Pain Assessed At Rest Pain Present Pain Present Pain Reported Location left hip Intensity 4 Scale Used increases to 8/10 with movement Pain Behaviors Facial Grimacing,Guarding, Holding Area Pain Management Techniques Apply Cold,Distraction, Modification of Treatment,Re- positioning,Timing of Activity with Medications M4 PT-IP Mobility and Gait Start: 09/08/24 12:53 Freq: NEEDED Status: Active Protocol: Document 09/08/24 11:45 AB (Rec: 09/08/24 13:04 AB [id number]) PT-Bed Mobility Assessment Supine to Sit Supine to Sit Standby Assistance PT-Transfer Assessment Sit to and From Stand Sit to and from Stand Moderate Assistance,1 Person Assistance,Use of Upper Extremities Equipment Transfer Assistive Device Gait Belt,Front Wheeled Walker Orthotic/Prosthetic Devices or Brace: No Transfers Transfer Destination Chair Transfer Technique ambulated Transfer Ability Level of Assist Moderate Assistance,1 Person Assistance,Use of Upper Extremities Comments Mobility Comments pt supine in bed and agreeable to do PT. obtained PLOF and home set up. BP: 154/68. completed supine to sit SBA and cues. presents with difficulty completing task needing increas time to complete. pt able to sit on EOB SBA. c/o increase L hip pain. pt completed sit to stand mod A and cues and ambulated using fWW mod A but only able to 3 ft and needing to sit down on chair due to increase L hip pain. positioned pt on the chair. call light and table placed within reach. informed pt, outsole caser and hospitalist regarding SNF recommendation. Gait Assessment Gait Gait Assistance Required: Moderate Assistance Distance (Feet) 3 Able to Maintain Weight Bearing Status Yes During Gait Assistive Devices Assistive Device Gait Belt,Front Wheeled Walker Orthotic/Prosthetic Devices or Brace: No Gait Deviations General Gait Pattern Antalgic,Decreased Stride Length,Decreased Feet Clearance,Step-to Gait Factors Limiting Gait Function Factors Limiting Gait Function Decreased Activity Tolerance, Decreased Strength,Limited Range of Motion,Pain,Poor Balance,Poor Safety Awareness PT-Balance Assessment Sitting Balance and Reactions Static Sitting Balance Ability Normal Dynamic Sitting Balance Ability Good Standing Balance and Reactions Static Standing Balance Ability Fair Dynamic Standing Balance Ability Poor Device Used FWW M5 PT-IP Objective Assessments Start: 09/08/24 12:53 Freq: NEEDED Status: Active Protocol: Document 09/08/24 11:45 AB (Rec: 09/08/24 13:04 AB [id number]) Orientation Orientation/Cognition Level of Alertness Alert Orientation Name,Age,Birthday,Place, Situation Language Function Ability No Deficits Noted Safety Awareness Understands Safety Issues Memory Description No Deficits Noted Gross Range of Motion Lower Extremity ROM Assessment Within Functional Limits Strength Lower Extremity Strength Assessment Left Impaired Hip 3-/5 Knee 4-/5 Coordination Assessment Gross Coordination Gross Coordination WNL Sensation Assessment Sensation Gross Sensation WNL Muscle Tone Muscle Tone WNL Yes M6 PT-IP Treatment Start: 09/08/24 12:53 Freq: NEEDED Status: Active Protocol: Document 09/08/24 11:45 AB (Rec: 09/08/24 13:04 AB [id number]) Physical Therapy Treatment Education Education Provided Weight Bearing Status,Safety M7 PT-IP Assessment and Plan Start: 09/08/24 12:53 Freq: NEEDED Status: Active Protocol: Document 09/08/24 11:45 AB (Rec: 09/08/24 13:04 AB [id number]) PT Summary Assessment and Plan Potential Rehabilitation Potential Fair Status of Condition at Evaluation Evolving Summary Impairments Pain,ROM,Strength,Balance, Coordination,Sensation,Tone, Cognition,Bed Mobility, Transfers,Gait,Activity Tolerance Assessment Summary pt is an 83 y/o F s/p fall and sustained a L periprosthetic fx of the greater trochanter. per EMR: no surgery needed per ortho. Hospitalist also informed PT that pt is WBAT on LLE. pt requiring mod A for transfers using FWW and was only able to ambulate ~ 3 ft using fWW mod A. c/o increase LLE pain. pt will need 24/ assist and will require SNF rehab at this time. will continue to assess progress. Goals Bed Mobility Goal Independent Transfer Goal Standby Assistance,Front Wheeled Walker Gait Goal Standby Assistance,Front Wheel Walker Gait Distance 50 Other Goals improve transfers and ambulation using FWW 150 ft mod I up/down 3 steps L rail ascending SBA Days to Meet Goals 10 Frequency of Treatment Frequency Of Treatment Once a Day Treatment Plan Physical Therapy Treatment Plan Bed Mobility Training,Transfer Training,Gait Training, Therapeutic Exercise,Balance Retraining,Post Op Education, Discharge Planning,Hot or Cold Pack,Neuromuscular Re-ed, Coordination Retraining,Manual Therapy Weight Bearing Status Weight Bearing Status Weight Bear as Tolerated Allowed Weight Bearing Amount (enter % LLE WBAT per hospitalist or #) (%) Recommendations To Nursing Amount of Assist Needed 1 Person Assist Discharge Recommendations PT Discharge Recommendations SNF Rehab Transportation Needs at Discharge Private Vehicle
[2024-09-08] MEDS: HYDROCODONE/ACET 5/325 TABLET 1 TAB PO (12:09)
--- NOTE | 2024-09-08 12:24 | PC.NURSE ---
Addendum entered by Brittany Rivera R.N. 09/08/24 17:07: pt cont' up in chair dozing on off Original Note: working with PT medicated with vicodin po
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
[2024-09-08] MEDS: SENNOSIDES 8.6 MG TABLET 17.2 MG PO (20:13)
[2024-09-08] MEDS: AMLODIPINE 5 MG TABLET 7.5 MG PO (20:14)
[2024-09-09] MEDS: HYDROCODONE/ACET 5/325 TABLET 1 TAB PO ×3 (01:03→21:07)
[2024-09-09 02:00] VITALS: BP 124/54; PULSE 92; RESP 14; TEMP 36.5; O2SAT 95
[2024-09-09] MEDS: LEVOTHYROXINE 75 MCG TABLET PO (05:41)
[2024-09-09] MEDS: OXYBUTYNIN 5 MG ER TAB 10 MG PO (08:47)
[2024-09-09] MEDS: HEPARIN 5,000 UNIT/ML VIAL 5000 UNIT SUBCUT ×2 (08:47→21:08)
[2024-09-09] MEDS: SODIUM CHLORIDE 0.9% FLUSH 10 ML IV ×2 (08:52→21:09)
--- NOTE | 2024-09-09 10:19 | PT.IPTN ---
Physical Therapy Treatment Note M2 PT-IP Current Condition Start: 09/08/24 12:53 Freq: NEEDED Status: Active Protocol: Document 09/08/24 11:45 AB (Rec: 09/08/24 13:04 AB [id number]) Physical Therapy Current Condition Current Condition Evaluation Date 09/08/24 Treatment Diagnosis s/p fall; L periprosthetic fx of greater trochanger; difficulty in walking Onset Date 09/08/24 M3 PT-IP Subjective Start: 09/08/24 12:53 Freq: NEEDED Status: Active Protocol: Document 09/09/24 09:55 KS (Rec: 09/09/24 11:58 KS [id number]) Subjective Physical Therapy Visit Type Type Treatment Note Visit Start Time 09:55 Visit Stop Time 10:19 Number of FLY SETTER Visits 24 Physical Therapy Visit Comments Patient Comments agreeable to do PT Therapy Pain Assessment Pain When Pain Assessed During Mobility Pain Present Pain Present Pain Reported Location left hip Scale Used not quantified Description Throbbing Pain Behaviors Guarding,Moaning,Wincing Pain Management Techniques Elevation,Re-positioning, Timing of Activity with Medications M4 PT-IP Mobility and Gait Start: 09/08/24 12:53 Freq: NEEDED Status: Active Protocol: Document 09/09/24 09:55 KS (Rec: 09/09/24 11:58 KS [id number]) PT-Bed Mobility Assessment Sit to Supine Sit to Supine Moderate Assistance,1 Person Assistance Scooting Scooting to Edge of Bed Minimal Assistance PT-Transfer Assessment Sit to and From Stand Sit to and from Stand Moderate Assistance,1 Person Assistance,Use of Upper Extremities Equipment Transfer Assistive Device Gait Belt,Front Wheeled Walker Orthotic/Prosthetic Devices or Brace: No Transfers Transfer Destination Chair Transfer Technique ambulated Transfer Ability Level of Assist Moderate Assistance,1 Person Assistance,Use of Upper Extremities Comments Mobility Comments Pt in bed upon arrival, comfortable at rest but reports pain with mobility and weightbearing. Mod A for sup< >Sit, Min A for scooting EOB, and Mod A for sit<>stand w/ FWW. Pt able to perform ~30 sec weight shifting followed by marching in place. Good use of BLE/FWW to off-weight LLE to decrease pain. Pt able to ambulate ~20 ft today prior to sitting in chair. She ambulated slowly and c/o increased pain however was able to tolerate after recent medication. Pt returned to chair, Min A for for slow descent. Left in chair w/ all needs in reach. Gait Assessment Gait Gait Assistance Required: Minimum Assistance,1 Person Assist Distance (Feet) 20 Able to Maintain Weight Bearing Status Yes During Gait Assistive Devices Assistive Device Gait Belt,Front Wheeled Walker Orthotic/Prosthetic Devices or Brace: No Gait Deviations General Gait Pattern Antalgic,Decreased Stride Length,Decreased Feet Clearance,Step-to Gait Factors Limiting Gait Function Factors Limiting Gait Function Decreased Activity Tolerance, Decreased Strength,Limited Range of Motion,Pain,Poor Balance,Poor Safety Awareness Comments Gait Comments See mobility section for details. Stair Climbing Assessment Comments Stair Climbing Comments Did not assess - unable at this time. PT-Balance Assessment Sitting Balance and Reactions Static Sitting Balance Ability Normal Dynamic Sitting Balance Ability Good Standing Balance and Reactions Static Standing Balance Ability Fair Dynamic Standing Balance Ability Fair Device Used FWW M5 PT-IP Objective Assessments Start: 09/08/24 12:53 Freq: NEEDED Status: Active Protocol: Document 09/08/24 11:45 AB (Rec: 09/08/24 13:04 AB [id number]) Orientation Orientation/Cognition Level of Alertness Alert Orientation Name,Age,Birthday,Place, Situation Language Function Ability No Deficits Noted Safety Awareness Understands Safety Issues Memory Description No Deficits Noted Gross Range of Motion Lower Extremity ROM Assessment Within Functional Limits Strength Lower Extremity Strength Assessment Left Impaired Hip 3-/5 Knee 4-/5 Coordination Assessment Gross Coordination Gross Coordination WNL Sensation Assessment Sensation Gross Sensation WNL Muscle Tone Muscle Tone WNL Yes M6 PT-IP Treatment Start: 09/08/24 12:53 Freq: NEEDED Status: Active Protocol: Document 09/09/24 09:55 KS (Rec: 09/09/24 11:58 KS [id number]) Physical Therapy Treatment Exercises Exercises Ankle Pumps,Gluteal Sets,Quad Sets,Heel Slides Education Education Provided Weight Bearing Status,Safety M7 PT-IP Assessment and Plan Start: 09/08/24 12:53 Freq: NEEDED Status: Active Protocol: Document 09/09/24 09:55 KS (Rec: 09/09/24 11:58 KS [id number]) PT Summary Assessment and Plan Potential Rehabilitation Potential Fair Summary Impairments Pain,ROM,Strength,Balance, Coordination,Sensation,Tone, Cognition,Bed Mobility, Transfers,Gait,Activity Tolerance Progress Towards Goals Slow Progress due to Pain,Slow Progress due to Medical Issues,Slow Progress due to Activity Tolerance Assessment Summary Pt continues to make slow progress. however is still requiring up to Mod A with bed mobility and STS. Able to increased ambulation to 20 ft using FWW today. At this time, pt will require SNF to improve strength and safe functional mobility as she lives alone and has stairs to enter. Will continue to assess progress. Goals Bed Mobility Goal Independent Transfer Goal Standby Assistance,Front Wheeled Walker Gait Goal Standby Assistance,Front Wheel Walker Gait Distance 50 Other Goals improve transfers and ambulation using FWW 150 ft mod I up/down 3 steps L rail ascending SBA Days to Meet Goals 10 Frequency of Treatment Frequency Of Treatment Once a Day Treatment Plan Physical Therapy Treatment Plan Bed Mobility Training,Transfer Training,Gait Training, Therapeutic Exercise,Balance Retraining,Post Op Education, Discharge Planning,Hot or Cold Pack,Neuromuscular Re-ed, Coordination Retraining,Manual Therapy Weight Bearing Status Weight Bearing Status Weight Bear as Tolerated Allowed Weight Bearing Amount (enter % LLE WBAT per hospitalist or #) (%) Recommendations To Nursing Amount of Assist Needed 1 Person Assist Discharge Recommendations PT Discharge Recommendations SNF Rehab Transportation Needs at Discharge Private Vehicle
--- NOTE | 2024-09-09 11:02 | P.CONS_ITS ---
History of Present Illness Consult details Date Patient Seen: 09/09/24 Time Patient Seen: 11:02 Chief complaint: fall, left hip injury Reason for consult: fall, left hip injury Requesting provider: Diane Ortega Narrative: Ms. Ceja is a 80 yo F with history of bilateral ALICIA sustained a ground level fall. She was found to have a left hip greater trochanter non-displaced fracture. She has difficulty walking and was admitted to medicine service. Orthopedic service was consulted. Meds Home Medications and Allergies Home Medications Medication Instructions Recorded Confirmed Type MULTIVITAMIN (Multivitamin 1 cap PO EVERY DAY ##0 07/24/10 09/09/24 History -) Vitamin E (Alpha-Tocopherol) 400 unit PO QDAY ##0 07/24/10 09/09/24 History [CoQ10] 300 mg PO QDAY ##0 07/24/10 09/09/24 History zolpidem 5 mg tablet 2.5 mg (1/2 x 5 mg) PO HS PRN 08/23/22 09/08/24 Rx insomnia #30 tabs acetaminophen 500 mg tablet 500 mg PO Q6H PRN Pain (Scale 03/31/23 09/08/24 History (Tylenol Extra Strength) Score 4-6) levothyroxine 75 mcg tablet 75 mcg PO QAM #90 tabs 12/02/23 09/08/24 Rx (Synthroid) tolterodine 4 mg capsule,extended See Rx Instructions .Route 07/24/24 09/08/24 Rx release 24 hr .COMPLEX #90 caps raloxifene 60 mg tablet 60 mg PO DAILY #90 tabs 08/07/24 09/08/24 Rx meloxicam 7.5 mg tablet 7.5 mg PO DAILY #90 tabs 08/13/24 09/08/24 Rx OQ-xdyxsmqsdww-nqntfg ox-Zn ER 500 500 tab PO BEDTIME 09/08/24 09/08/24 History mcg-750 mg-1.5 mg-25 mg tablet,ER amlodipine 5 mg tablet 7.5 mg PO BEDTIME 09/08/24 09/08/24 History Allergies Allergy/AdvReac Type Severity Reaction Status Date / Time morphine [MORPHINE] Allergy Mild Vomiting Verified 09/07/24 16:48 Exam Vital Signs (past 8 hours): - 09/09/24 07:00 Oxygen Delivery Method Room Air Oxygen Delivery Method Room Air Oxygen Flow Rate 0 Extrem Other: LLE with bruising to left hip on the lateral aspect. Skin intact. NVI to LLE. Pain with movement at the hip joint at the greater troch location. No S/S of DVT. Objective Labs 09/08/24 06:25 09/08/24 06:25 [facility] Medical History Osteoarthritis of left hip Medicare annual wellness visit, subsequent Hypertension CKD (chronic kidney disease) stage 3, GFR 30-59 ml/min Osteoarthritis, multiple sites Osteoporosis Hyperlipidemia Hypothyroidism Mass of soft tissue of left lower extremity Lower extremity edema Social History marital status: unknown household members: none lives independently: Yes occupational status: unemployed Tobacco & Substance Use Smoking Status: Former smoker alcohol intake: current substance use type: does not use Assessment & Plan Assessment & Plan narrative: Ms. Ceja is a 83 yo F with non-displaced left greater trochanteric fracture with history of L ALICIA. Her CT hip/pelvis was independently reviewed by me today. She has non-displaced greater troch fracture without evidence of left hip prosthesis loosening. I recommend continue WBAT to LLE with PT. Patient will need assistance after discharge since patient lives alone. Patient may be d/c to inpatient rehab. Patient can call our office to f/u in 1-2 weeks for re-evaluation. Time-Based Coding :: [TOTAL MINUTES] spent with patient and on the chart (including review of chart, obtaining history, exam, reviewing outside data, placing orders, documenting exam and treatment plan, and counseling patient) on [DATE].
--- NOTE | 2024-09-09 11:56 | PM.PN.1 ---
Subjective Subjective Date Patient Seen: 09/09/24 Time Patient Seen: 11:30 Interval history: 83-year-old female with past medical history of dyslipidemia, CKD stage III, hypertension and prior bilateral hip replacement presents with a fall. Per the patient's report, the patient had a mechanical fall and fell onto her left side. The patient started to have severe left hip pain and unable to bear weight on it. The patient did try to take some Tylenol at home, but did not help with the pain. Otherwise the patient denies any head injury, loss of consciousness, nausea, vomiting, diarrhea, chest pain, or shortness of breath. In our emergency room, the patient was hemodynamically stable. Labs were relatively benign. Imaging CT of the hip shows fracture of the left femoral greater trochanter without hardware loosening. Orthopedic surgeon was called by the ER physician who said that this is non-surgical and recommended to admit for pain control with PT/OT. Orthopedic surgery is available consult if needed. The patient notes she was holding a large Ogle in heavy Tuesday yesterday for her preferred political Presidential candidate when she was blown over, landing on her left hip. 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 She was able to get up with maximal assistance with physical therapy today. Interval history: The patient reports ongoing left hip pain. She was able to walk a few steps in the room, but feels very unsteady due to ongoing pain. She feels she will need penitentiary facility placement. Exam Vital Signs (past 8 hours): - 09/09/24 07:00 Oxygen Delivery Method Room Air Oxygen Delivery Method Room Air Oxygen Flow Rate 0 Narrative Exam Narrative: GENERAL: This is a well-nourished, well-developed patient, in no apparent distress. HEAD: Atraumatic. Normocephalic. No temporal or scalp tenderness. EYES: Pupils equal round and reactive. Extraocular motions intact. No scleral icterus. No injection or drainage. ENT: Mucous membranes pink and moist. EXTREMITIES: No clubbing, cyanosis, or edema. MS: Left hip tender, with significant left buttock and lateral hip swelling, no superficial abrasions or ecchymosis apparent. NEUROLOGIC: Alert, oriented, speech fluent, full upper and lower motor strength, no focal deficits evident. DERMATOLOGIC: No rashes or skin lesions. Objective Labs 09/08/24 06:25 10/19/24 06:25 [facility] Medical History Osteoarthritis of left hip Medicare annual wellness visit, subsequent Hypertension CKD (chronic kidney disease) stage 3, GFR 30-59 ml/min Osteoarthritis, multiple sites Osteoporosis Hyperlipidemia Hypothyroidism Mass of soft tissue of left lower extremity Lower extremity edema Social History marital status: unknown household members: none lives independently: Yes occupational status: unemployed Smoking Status: Former smoker alcohol intake: current substance use type: does not use Assessment & Plan Assessment & Plan narrative: 1. Ground level mechanical fall with left greater trochanter fracture, likely pathologic due to underlying osteoporosis. Admit the patient to medical floor under inpatient status. She is able to weight bear but has severe pain and resulting gait instability and will require penitentiary facility placement. Orthopedics surgery following. 2. Chronic kidney disease stage III. Cr at baseline continue to monitor. 3. Hypertension. Continue home amlodipine. 4. Hypothyroidism. Continue home Synthroid. 5. Osteoporosis. Continue raloxifene. 6. DVT prophylaxis heparin. 7. Code status full code Disposition likely penitentiary facility placement tomorrow. PROFEE Charge codes Subsequent inpatient/observation care: [id number]
[2024-09-09 12:00] VITALS: BP 163/72; PULSE 95; RESP 16; TEMP 36.6; O2SAT 99
--- NOTE | 2024-09-09 12:22 | CM.DPNOTE ---
DCP Note SUPERVISOR TELEVISION CHASSIS REPAIR reviewed EMR. Per PT, continues to rec SNF. Per hospitalist in morning rounds, medically stable once DCP secured. SUPERVISOR TELEVISION CHASSIS REPAIR entered room and introduced self and role. Pt pleasant and chatty. pt confirms preference is to dc home but does not believe it is manageable at this time due to living alone/her pain/limited mobility. reviewed SNF options, preference [facility], [facility], and [facility] in that order. open to HH if able to dc home, either [facility] or [facility] , whichever could start soonest at her dc. has lots of friends/family local that could assist her. SUPERVISOR TELEVISION CHASSIS REPAIR lvm with [facility], faxed initial referral information. P: hopeful for SNF dc pending accepting facility/ins auth. if [facility] denies, need refs to [facility]. PASRR needed. if HH, referral/order/f2f needed. CM team will continue to follow closely SHAUNNA Crowder
[2024-09-09] MEDS: ACETAMINOPHEN 325 MG TABLET 650 MG PO (12:52)
[2024-09-09 20:00] VITALS: BP 135/67; PULSE 92; RESP 12; TEMP 36.6; O2SAT 98
[2024-09-09] MEDS: SENNOSIDES 8.6 MG TABLET 17.2 MG PO (21:06)
[2024-09-09] MEDS: AMLODIPINE 5 MG TABLET 7.5 MG PO (21:07)
[2024-09-10 02:00] VITALS: BP 125/63; PULSE 82; RESP 16; TEMP 36.9; O2SAT 99
[2024-09-10] MEDS: LEVOTHYROXINE 75 MCG TABLET PO (06:54)
[2024-09-10] MEDS: OXYBUTYNIN 5 MG ER TAB 10 MG PO (08:16)
[2024-09-10] MEDS: HYDROCODONE/ACET 5/325 TABLET 1 TAB PO ×2 (08:16→21:10)
[2024-09-10] MEDS: HEPARIN 5,000 UNIT/ML VIAL 5000 UNIT SUBCUT ×2 (08:17→21:09)
[2024-09-10] MEDS: SODIUM CHLORIDE 0.9% FLUSH 10 ML IV ×2 (08:18→21:12)
[2024-09-10 08:27] VITALS: BP 147/63; PULSE 89; RESP 19; TEMP 36.6; O2SAT 94
--- NOTE | 2024-09-10 11:15 | OT.IP.EVAL ---
Past Medical History (Last Reviewed 09/10/24 @ 13:36 by Mike Gil MD) CKD (chronic kidney disease) stage 3, GFR 30-59 ml/min Hyperlipidemia Hypertension Hypothyroidism Lower extremity edema Mass of soft tissue of left lower extremity Medicare annual wellness visit, subsequent Osteoarthritis of left hip Osteoarthritis, multiple sites Osteoporosis Occupational Therapy Inpatient Evaluation/Re-Eval M1 PT/OT-IP Prior Functional Status Start: 09/08/24 12:53 Freq: NEEDED Status: Active Protocol: Document 09/10/24 15:50 CGR (Rec: 09/10/24 16:02 CGR [id number]) Medical Review Prior Functional Status Medical History Reviewed Yes Communication able to make needs known Mobility and Gait pt stated that she was indpendent with all mobilities and ambulation without AD Activities of Daily Living and IADL's Pt was IND in all ADLs and I ADLS at baseline. She volunteers at [employer] and is very active at baseline. Social History Household Members none Living Arrangements House Number of Floors (Floors) Two Floors Number of Stairs To Enter/Railing? 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 M2 OT-IP Current Condition Start: 09/10/24 15:50 Freq: Status: Active Protocol: Document 09/10/24 15:50 CGR (Rec: 09/10/24 16:02 CGR [id number]) Occupational Therapy Current Condition Current Condition Evaluation Date 09/10/24 Treatment Diagnosis fall with L hip fx, nonoperable. Diagnosis Onset Date 09/08/24 Weight Bearing Status Weight Bearing Status Weight Bear as Tolerated M3 OT- IP Subjective and Pain Start: 09/10/24 15:50 Freq: Status: Active Protocol: Document 09/10/24 15:50 CGR (Rec: 09/10/24 16:02 CGR [id number]) OT- Subjective Occupational Therapy Visit Type Type Initial Evaluation Visit Start Time 10:51 Visit Stop Time 11:15 OT Pain Assessment Pain When Pain Assessed At Rest Pain Present Pain Present Denied Pain M4 OT- IP ADL's Start: 09/10/24 15:50 Freq: Status: Active Protocol: Document 09/10/24 15:50 CGR (Rec: 09/10/24 16:02 CGR [id number]) OT [id number] Comments OT Self-Feeding Comments not meal time OT ADL-Grooming General Evaluation Grooming Ability Independent Comments OT Grooming Comments standing at sink to wash hands OT ADL-Oral Care Comments Oral Care Comments not performed OT ADL-Dressing Comments OT Dressing Comments discussed LB dressing, pt states she has a technical instructor course developer and sockaid OT ADL-Toileting General Evaluation Toileting Ability Standby Assistance Comments OT Toileting Comments for urination seated on toielt OT ADL-Bathing Comments OT Bathing Comments not performed M5 OT- IP IADL's Start: 09/10/24 15:50 Freq: Status: Active Protocol: Document 09/10/24 15:50 CGR (Rec: 09/10/24 16:02 CGR [id number]) OT-Instrumental Activities of Daily Living Deficits IADL Deficits Identified No Deficits Home Safety Awareness Awareness of Need for Assistance at Home Good Awareness Ability to Problem Solve Emergency Able to Problem Solve Situations Medication Management Medication Management No Deficits Identified Money Management Money Management No Deficits Identified Meal Preparation Meal Preparation No Deficits Identified Preschool Assistant Principal Preschool Assistant Principal No Deficits Identified Driving Driving Comments 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 M6 OT- IP Functional Cognition Start: 09/10/24 15:50 Freq: Status: Active Protocol: Document 09/10/24 15:50 CGR (Rec: 09/10/24 16:02 CGR [id number]) Cognitive Factors Limiting Selfcare Function Cognitive Ability Level of Alertness Alert Patient Orientation Name,Age,Birthday,Month,Date, Year,Day of Week,Place, Situation Attention Span Ability Capable of Focused Attention, Capable of Sustained Attention OT- Vision and Hearing OT- Hearing Assessment OT- Hearing Assessment WFL OT- Vision Assessment Vision History Cataracts Visual Acuity Glasses For Reading Visual Attentiveness WFL Occular Pursuits WFL Visual Convergence WFL M7 OT- IP Mobility and Balance Start: 09/10/24 15:50 Freq: Status: Active Protocol: Document 09/10/24 15:50 CGR (Rec: 09/10/24 16:02 CGR [id number]) OT-Transfer Assessment Sit to and From Stand Sit to and from Stand Contact Guard Assistance Transfers Transfer Ability Contact Guard Assistance Technique Transfer Destination Chair,Toilet Transfer Technique Stand Step Pivot Devices Transfer Assistive Devices Gait Belt,Front Wheeled Walker Comments Mobility Comments mobility around the room. Pt states pain of 5/10 with mobility unless she moves the L leg wrong and it is worse. Pt did wince twice during mobility and had to stop to regain her composure before continuing with mobility. OT- Balance Assessment Sitting Balance and Reactions Static Sitting Balance Ability Normal Dynamic Sitting Balance Ability Normal M8 OT- IP Objective Assessments Start: 09/10/24 15:50 Freq: Status: Active Protocol: Document 09/10/24 15:50 CGR (Rec: 09/10/24 16:02 CGR [id number]) OT Gross Range of Motion Upper Extremity Range of Motion Assessment Within Functional Limits OT Strength Upper Extremity Strength Assessment Within Functional Limits Comments Strength Comments 4+/5 OT- Coordination Assessment Upper Extremity Finger to Nose Test Within Functional Limits Finger Tapping Test Within Functional Limits OT-Muscle Tone Assessment Muscle Tone WNL Yes OT Sensation Assessment Edema Edema Absent M9 OT- IP Assessment and Plan Start: 09/10/24 15:50 Freq: Status: Active Protocol: Document 09/10/24 15:50 CGR (Rec: 09/10/24 16:02 CGR [id number]) OT Summary Assessment and Plan Potential Rehabilitation Potential Excellent Analytic Complexity at Evaluation Low Summary OT Impairments Pain,Balance,Functional Mobility,Grooming,Dressing, Toileting,Bathing,Toilet Transfers,Shower Transfers, Activity Tolerance Progress Towards Goals Slow Progress due to Pain Assessment Summary Pt presents as a low complexity evaluation s/p admit for fall and L hip fx. Fx is inoperable and pt is able to WBAT. Pt is progressing well and is likely to continue to progress well. Recommendation at this time is SNF till pain is better controlled with mobility and ADLs. Goals Grooming Goal Independent Dressing Goal Independent,Slubber Operator,Sock Aid Toileting Goal Independent Bathing Goal Independent Toilet Transfer Goal Independent Shower Transfer Goal Independent Days to Meet Goals 10 Frequency of Treatment Other frequency 5x week Treatment Plan OT Treatment Plan ADL Training,Functional Mobility,Patient/Family Education,Discharge Planning Other Treatment Recommendations and Next ADLs standing, LB dressing Treatment Focus with DME. Discharge Recommendations OT Discharge Recommendations SNF Rehab Transportation Needs at Discharge Private Vehicle
--- NOTE | 2024-09-10 12:25 | CM.DPNOTE ---
Addendum entered by SHAUNNA Crowder 09/10/24 14:27: PASRR completed. SL Original Note: DCP Note US CUSTOMS AND BORDER OFFICER reviewed EMR. Per hospitalist in morning rounds, cleared to dc whenever safe dc plan is secured. US CUST[employer]S AND BORDER OFFICER called [facility] and left 2 voicemails, no response as of 1230. US CUST[employer]S AND BORDER OFFICER spoke with Kera from [facility], happy to review, will submit for auth. US C[employer]S AND BORDER OFFICER faxed clinicals. US CUST[employer]S AND BORDER OFFICER met with pt in room. Confirmed preference remains [facility] but if they do not respond that preference is [facility] as backup. son could transport at dc if needed. if continues to progress, may dc home tomorrow if son could stay with her? HH referral needed if home. (preference either [facility] or [facility], whichever could start first). [facility] pending, stable to dc when safe dc plan secured. PASRR needed. If home with son, need HH referral/f2f. CM team will continue to follow closely SHAUNNA Crowder
--- NOTE | 2024-09-10 13:35 | PM.PN.1 ---
Subjective Subjective Interval history: Subjective: Her left hip hurts when weight-bearing and walking but is relatively comfortable when sitting. No chest pain, or dyspnea. No nausea, or vomiting. She has been constipated. Exam Vital Signs (past 8 hours): - 09/10/24 08:27 Temperature 97.9 F Pulse Rate 89 Respiratory Rate 19 Blood Pressure 147/63 H Pulse Oximetry 94 Oxygen Flow Rate 0 Oxygen Delivery Method Room Air Oxygen Flow Rate 0 Narrative Exam Narrative: NAD, alert and oriented. Fluent speech. Lungs are clear, normal rate and effort. Heart is regular, no murmur gallop or rub. Abdomen is soft, non distended. Extremities are free of edema. Objective Labs 09/08/24 06:25 09/08/24 06:25 [facility] Medical History Osteoarthritis of left hip Medicare annual wellness visit, subsequent Hypertension CKD (chronic kidney disease) stage 3, GFR 30-59 ml/min Osteoarthritis, multiple sites Osteoporosis Hyperlipidemia Hypothyroidism Mass of soft tissue of left lower extremity Lower extremity edema Social History marital status: unknown household members: none lives independently: Yes occupational status: unemployed Smoking Status: Former smoker alcohol intake: current substance use type: does not use Assessment & Plan Assessment & Plan narrative: 1. Ground level mechanical fall with left greater trochanter fracture, likely pathologic due to underlying osteoporosis. Admit the patient to medical floor under inpatient status. She is able to weight bear but has severe pain and resulting gait instability and will require nursing home facility placement. Orthopedics surgery following. 2. Chronic kidney disease stage III. Cr at baseline continue to monitor. 3. Hypertension. Continue home amlodipine. 4. Hypothyroidism. Continue home Synthroid. 5. Osteoporosis. Continue raloxifene. 6. DVT prophylaxis heparin. 7. Code status full code PLAN: Vicodin for pain, physical therapy and occupational therapy to continue. Awaiting authorization for nursing home facility,[facility]. Time-Based Coding :: [TOTAL MINUTES] spent with patient and on the chart (including review of chart, obtaining history, exam, reviewing outside data, placing orders, documenting exam and treatment plan, and counseling patient) on [DATE].
[2024-09-10] MEDS: ACETAMINOPHEN 325 MG TABLET 650 MG PO (13:37)
--- NOTE | 2024-09-10 13:44 | PT.IPTN ---
Physical Therapy Treatment Note M2 PT-IP Current Condition Start: 09/08/24 12:53 Freq: NEEDED Status: Active Protocol: Document 09/08/24 11:45 AB (Rec: 09/08/24 13:04 AB [id number]) Physical Therapy Current Condition Current Condition Evaluation Date 09/08/24 Treatment Diagnosis s/p fall; L periprosthetic fx of greater trochanger; difficulty in walking Onset Date 09/08/24 M3 PT-IP Subjective Start: 09/08/24 12:53 Freq: NEEDED Status: Active Protocol: Document 09/10/24 13:16 MB (Rec: 09/10/24 13:44 MB [id number]) Subjective Physical Therapy Visit Type Type Treatment Note Visit Start Time 13:16 Visit Stop Time 13:36 Number of LEAD COATER Visits 0 Physical Therapy Visit Comments Patient Comments Pt sitting up in chair and is agreeable to PT. Therapy Pain Assessment Pain When Pain Assessed During Mobility Pain Present Pain Present Pain Reported Location left hip Scale Used Not rated M4 PT-IP Mobility and Gait Start: 09/08/24 12:53 Freq: NEEDED Status: Active Protocol: Document 09/10/24 13:16 MB (Rec: 09/10/24 13:44 MB [id number]) PT-Transfer Assessment Sit to and From Stand Sit to and from Stand Contact Guard Assistance,1 Person Assistance,Use of Upper Extremities Equipment Transfer Assistive Device Gait Belt,Front Wheeled Walker Orthotic/Prosthetic Devices or Brace: No Transfers Transfer Destination Bed Transfer Technique Ambulation Transfer Ability Level of Assist Contact Guard Assistance,1 Person Assistance,Use of Upper Extremities Comments Mobility Comments Cues for shifting weight to right leg for STS and to push up from the chair and to reach back for the bed before sitting Gait Assessment Gait Gait Assistance Required: Contact Guard Assist,1 Person Assist Distance (Feet) 25 Able to Maintain Weight Bearing Status Yes During Gait Assistive Devices Assistive Device Gait Belt,Front Wheeled Walker Orthotic/Prosthetic Devices or Brace: No Gait Deviations General Gait Pattern Antalgic,Decreased Stride Length,Decreased Feet Clearance,Step-to Gait Factors Limiting Gait Function Factors Limiting Gait Function Decreased Activity Tolerance, Pain,Poor Balance Comments Gait Comments PT instructs pt to move walker forward first and then left and then right foot for step- to gait to help protect left hip and allow WB but not too much weight so that bone heals and in order to maximize safe gait while not overworking fractured area PT-Balance Assessment Sitting Balance and Reactions Static Sitting Balance Ability Normal Dynamic Sitting Balance Ability Good Standing Balance and Reactions Static Standing Balance Ability Fair Dynamic Standing Balance Ability Fair Device Used FWW M5 PT-IP Objective Assessments Start: 09/08/24 12:53 Freq: NEEDED Status: Active Protocol: Document 09/08/24 11:45 AB (Rec: 09/08/24 13:04 AB [id number]) Orientation Orientation/Cognition Level of Alertness Alert Orientation Name,Age,Birthday,Place, Situation Language Function Ability No Deficits Noted Safety Awareness Understands Safety Issues Memory Description No Deficits Noted Gross Range of Motion Lower Extremity ROM Assessment Within Functional Limits Strength Lower Extremity Strength Assessment Left Impaired Hip 3-/5 Knee 4-/5 Coordination Assessment Gross Coordination Gross Coordination WNL Sensation Assessment Sensation Gross Sensation WNL Muscle Tone Muscle Tone WNL Yes M6 PT-IP Treatment Start: 09/08/24 12:53 Freq: NEEDED Status: Active Protocol: Document 09/10/24 13:16 MB (Rec: 09/10/24 13:44 MB [id number]) Physical Therapy Treatment Exercises Exercises Ankle Pumps,Gluteal Sets,Quad Sets,Heel Slides Education Education Provided Weight Bearing Status,Safety M7 PT-IP Assessment and Plan Start: 09/08/24 12:53 Freq: NEEDED Status: Active Protocol: Document 09/10/24 13:16 MB (Rec: 09/10/24 13:44 MB [id number]) PT Summary Assessment and Plan Potential Rehabilitation Potential Good Status of Condition at Evaluation Evolving Summary Impairments Pain,ROM,Strength,Balance, Coordination,Bed Mobility, Transfers,Gait,Activity Tolerance Progress Towards Goals Progressing Toward Goals Assessment Summary Pt con't with left hip pain with WB and she progresses with transfers and gait this date. Recommend limiting gait distance to distance needed for functional tasks at home as hip fracture heals. Also ed pt in the benefits of step-to gait to help protect leg and maximize distance given hip fracture. May be ready to try steps with left rail ascend, step-to gait next treatment date. Goals Bed Mobility Goal Independent Transfer Goal Independent,Front Wheeled Walker Gait Goal Independent,Front Wheel Walker Gait Distance 50 Other Goals up/down 3 steps L rail ascending SBA Days to Meet Goals 5 Frequency of Treatment Frequency Of Treatment Once a Day Treatment Plan Physical Therapy Treatment Plan Bed Mobility Training,Transfer Training,Gait Training, Therapeutic Exercise,Balance Retraining,Discharge Planning, Hot or Cold Pack,Neuromuscular Re-ed,Coordination Retraining ,Manual Therapy Other Recommendations and Next Treatment Try steps next treatment date Focus Weight Bearing Status Weight Bearing Status Weight Bear as Tolerated Allowed Weight Bearing Amount (enter % Dr. Ludwig's note or #) (%) Recommendations To Nursing Amount of Assist Needed 1 Person Assist Discharge Recommendations PT Discharge Recommendations SNF Rehab Transportation Needs at Discharge Private Vehicle
[2024-09-10 17:05] VITALS: BP 163/66; PULSE 81; RESP 19; TEMP 36.2; O2SAT 96
[2024-09-10 19:00] VITALS: BP 129/60; PULSE 79; RESP 19; TEMP 36.6; O2SAT 99
[2024-09-10] MEDS: SENNOSIDES 8.6 MG TABLET 17.2 MG PO (21:09)
[2024-09-10] MEDS: AMLODIPINE 5 MG TABLET 7.5 MG PO (21:10)
[2024-09-11 01:48] VITALS: BP 143/62; PULSE 64; RESP 20; TEMP 36.2; O2SAT 95
[2024-09-11] MEDS: ACETAMINOPHEN 325 MG TABLET 650 MG PO ×2 (03:20→08:56)
[2024-09-11 05:32] LABS: Hematocrit 26.5 % (36-46); Mean Corpuscular Hemoglobin 32.9 PG (26-34); Mean Corpuscular Volume 96.9 fL (80-100); Platelet Count 228 X10^3/uL (150-400); Red Blood Cell Count 2.73 X10^6/uL (4.0-5.2); Red Cell Distribution Width 14.3 % (11.6-14.8)
[2024-09-11] MEDS: LEVOTHYROXINE 75 MCG TABLET PO (05:44)
[2024-09-11 06:11] LABS: BUN Creatinine Ratio 17.7 (6-22); Blood Urea Nitrogen 20 mg/dL (7-17); Carbon Dioxide 26 mmol/L (22-32); Chloride 106 mmol/L (98-107); Estimated Glomerular Filt Rate 48 mL/min (>60); Glucose 85 mg/dL (80-110); HEMOLYSIS < 15 (0-50); Potassium 4.2 mmol/L (3.4-5.1); Sodium 135 mmol/L (137-145)
[2024-09-11 08:36] VITALS: BP 127/85; PULSE 76; RESP 19; TEMP 36.4; O2SAT 97
[2024-09-11] MEDS: SODIUM CHLORIDE 0.9% FLUSH 10 ML IV (08:57)
[2024-09-11] MEDS: OXYBUTYNIN 5 MG ER TAB 10 MG PO (08:57)
[2024-09-11] MEDS: HEPARIN 5,000 UNIT/ML VIAL 5000 UNIT SUBCUT (08:57)
--- NOTE | 2024-09-11 09:38 | OT.IP.TRT ---
Current Diagnoses Displaced fracture of greater trochanter of left femur, initial encounter for closed fracture (09/09/24) Occupational Therapy Treatment Note M2 OT-IP Current Condition Start: 09/10/24 15:50 Freq: Status: Active Protocol: Document 09/10/24 15:50 CGR (Rec: 09/10/24 16:02 CGR [id number]) Occupational Therapy Current Condition Current Condition Evaluation Date 09/10/24 Treatment Diagnosis fall with L hip fx, nonoperable. Diagnosis Onset Date 09/08/24 Weight Bearing Status Weight Bearing Status Weight Bear as Tolerated M3 OT- IP Subjective and Pain Start: 09/10/24 15:50 Freq: Status: Active Protocol: Document 09/11/24 09:38 CCC (Rec: 09/11/24 09:44 CCC [id number]) OT- Subjective Occupational Therapy Visit Type Type Treatment Note Visit Start Time 09:15 Visit Stop Time 09:28 Occupational Therapy Visit Comments Patient Comments Pt agreed to get up to wash her dentures and use the bathroom. Pt states showered last night. OT Pain Assessment Pain When Pain Assessed At Rest Pain Present Pain Present Denied Pain M4 OT- IP ADL's Start: 09/10/24 15:50 Freq: Status: Active Protocol: Document 09/11/24 09:38 CCC (Rec: 09/11/24 09:44 CCC [id number]) OT ADL-Grooming General Evaluation Grooming Ability Independent Comments OT Grooming Comments standing at sink to wash hands OT ADL-Oral Care General Eval Oral Care Ability Independent Comments Oral Care Comments While standing at the sink. OT ADL-Toileting General Evaluation Toileting Ability Standby Assistance Comments OT Toileting Comments Distance supervision. OT ADL-Bathing Comments OT Bathing Comments Pt states showered yesterday. M5 OT- IP IADL's Start: 09/10/24 15:50 Freq: Status: Active Protocol: Document 09/10/24 15:50 CGR (Rec: 09/10/24 16:02 CGR [id number]) OT-Instrumental Activities of Daily Living Deficits IADL Deficits Identified No Deficits Home Safety Awareness Awareness of Need for Assistance at Home Good Awareness Ability to Problem Solve Emergency Able to Problem Solve Situations Medication Management Medication Management No Deficits Identified Money Management Money Management No Deficits Identified Meal Preparation Meal Preparation No Deficits Identified Medical Billing And Coding Instructor Medical Billing And Coding Instructor No Deficits Identified Driving Driving Comments 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 M6 OT- IP Functional Cognition Start: 09/10/24 15:50 Freq: Status: Active Protocol: Document 09/11/24 09:38 [facility] (Rec: 09/11/24 09:44 [facility] [id number]) Cognitive Factors Limiting Selfcare Function Cognitive Comments Cognitive Assessment Comments Pt needing vc for hand placement on the FWW.. Pt vc not to take too big of a step with her LLE after advancing the FWW. M7 OT- IP Mobility and Balance Start: 09/10/24 15:50 Freq: Status: Active Protocol: Document 09/11/24 09:38 [facility] (Rec: 09/11/24 09:44 [facility] [id number]) OT-Transfer Assessment Sit to and From Stand Sit to and from Stand Standby Assistance Transfers Transfer Ability Standby Assistance Technique Transfer Destination Chair,Toilet Transfer Technique Stand Step Pivot Devices Transfer Assistive Devices Gait Belt,Front Wheeled Walker Comments Mobility Comments SBA with FWW, mainly just cues for FWW safety. OT- Balance Assessment Sitting Balance and Reactions Static Sitting Balance Ability Normal Dynamic Sitting Balance Ability Normal Standing Balance and Reactions Static Standing Balance Ability Good Dynamic Standing Balance Ability Fair M8 OT- IP Objective Assessments Start: 09/10/24 15:50 Freq: Status: Active Protocol: Document 09/10/24 15:50 CGR (Rec: 09/10/24 16:02 CGR [id number]) OT Gross Range of Motion Upper Extremity Range of Motion Assessment Within Functional Limits OT Strength Upper Extremity Strength Assessment Within Functional Limits Comments Strength Comments 4+/5 OT- Coordination Assessment Upper Extremity Finger to Nose Test Within Functional Limits Finger Tapping Test Within Functional Limits OT-Muscle Tone Assessment Muscle Tone WNL Yes OT Sensation Assessment Edema Edema Absent M9 OT- IP Assessment and Plan Start: 09/10/24 15:50 Freq: Status: Active Protocol: Document 09/11/24 09:38 [facility] (Rec: 09/11/24 09:44 [facility] [id number]) OT Summary Assessment and Plan Potential Rehabilitation Potential Excellent Analytic Complexity at Evaluation Low Summary OT Impairments Pain,Balance,Functional Mobility,Grooming,Dressing, Toileting,Bathing,Toilet Transfers,Shower Transfers, Activity Tolerance Progress Towards Goals Progressing Toward Goals Assessment Summary Pt doing much better and looking to go to skilled rehab for a short stay. Went over FWW safety with pt and what to expect in skilled rehab. Goals Grooming Goal Independent Dressing Goal Independent,Security Business Analyst,Sock Aid Toileting Goal Independent Bathing Goal Independent Toilet Transfer Goal Independent Shower Transfer Goal Independent Days to Meet Goals 9 Frequency of Treatment Other frequency 5x week Treatment Plan OT Treatment Plan ADL Training,Functional Mobility,Patient/Family Education,Discharge Planning Discharge Recommendations OT Discharge Recommendations SNF Rehab Transportation Needs at Discharge Private Vehicle
--- NOTE | 2024-09-11 10:39 | P.DS_ITS ---
History of Present Illness History of Present Illness Chief complaint: fall, left hip injury Narrative: From H&P: 83-year-old female with past medical history of dyslipidemia, CKD stage III, hypertension and prior bilateral hip replacement presents with a fall. Per the patient's report, the patient had a mechanical fall and fell onto her left side. The patient started to have severe left hip pain and unable to bear weight on it. The patient did try to take some Tylenol at home, but did not help with the pain. Otherwise the patient denies any head injury, loss of consciousness, nausea, vomiting, diarrhea, chest pain, or shortness of breath. In our emergency room, the patient was hemodynamically stable. Labs were relatively benign. Imaging CT of the hip shows fracture of the left femoral greater trochanter without hardware loosening. Orthopedic surgeon was called by the ER physician who said that this is non-surgical and recommended to admit for pain control with PT/OT. Orthopedic surgery is available consult if needed. Interval history: The patient notes she was holding a large [place] in heavy Tuesday yesterday for her preferred political Presidential candidate when she was blown over, landing on her left hip. 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 She was able to get up with maximal assistance with physical therapy today. Discharge Providers Provider Date of admission: 09/09/24 11:23 Discharge Date: 09/11/24 Primary care physician: Robin Sims MD Consults: 09/08/24 02:51 Consult to Occupational Therapy Evaluate & Treat Comment: Physician Instructions: Evaluate and treat Consult to Physical Therapy Evaluate & Treat Comment: Physician Instructions: Evaluate and Treat Discharge provider: Mike Gil MD Summary Hospital Course Discharge Diagnosis: 1. Ground level mechanical fall with left greater trochanter fracture, likely pathologic due to underlying osteoporosis. Admit the patient to medical floor under inpatient status. She is able to weight bear but has severe pain and resulting gait instability and will require halfway facility placement. Orthopedics surgery following. 2. Chronic kidney disease stage III. Cr at baseline continue to monitor. 3. Hypertension. Continue home amlodipine. 4. Hypothyroidism. Continue home Synthroid. 5. Osteoporosis. Continue raloxifene. 6. DVT prophylaxis heparin. 7. Code status full code Hospital Course: She was admitted with a ground level fall and hip fracture. The hip fracture involves her greater trochanter on the left. Orthopedics felt this was a non operative fracture and that she could pursue rehabilitation efforts and weight bear as tolerated. She would reasonably good pain control while in the hospital. She was stable chronic kidney disease stage 3 and her hypertension was relatively stable. She was increased to 7.5 mg of amlodipine while in the hospital but this will go back to 5 mg at discharge and we will follow pressures closely. Status at Discharge Cognitive/behavioral status at discharge: oriented Functional status at discharge: uses cane/walker Overall status at discharge: patient is progressing back to baseline Time Spent with Patient Time spent: Greater than 30 minutes Exam Vital Signs (past 8 hours): - 09/11/24 08:36 Temperature 97.5 F L Pulse Rate 76 Respiratory Rate 19 Blood Pressure 127/85 Pulse Oximetry 97 Oxygen Flow Rate 0 Oxygen Delivery Method Room Air Oxygen Flow Rate 0 Narrative Exam Narrative: NAD, alert and oriented. Fluent speech. Lungs are clear, normal rate and effort. Heart is regular, no murmur gallop or rub. Abdomen is soft, non distended. Extremities are free of edema. Objective Imaging Multiple studies:: Radiologist's impression: Hip x-ray: Suspicion for a mildly displaced fracture of the left greater trochanter. Leg CT: 1. Status post bilateral total hip arthroplasties with a periprosthetic fracture of the left femoral greater trochanter, without hardware loosening. 2. Moderate left hip joint effusion and associated soft tissue bruising, likely posttraumatic. 3. Mild left greater trochanteric bursitis. Labs 09/11/24 05:10 09/11/24 05:10 Labs: Laboratory Results - last 24 hr 09/11/24 05:10 WBC 5.0 RBC 2.73 L Hgb 9.0 L Hct 26.5 L MCV 96.9 MCH 32.9 MCHC 34.0 RDW 14.3 Plt Count 228 Sodium 135 L Potassium 4.2 Chloride 106 Carbon Dioxide 26 BUN 20 H Creatinine 1.13 H Estimated GFR 48 L BUN/Creatinine Ratio 17.7 Glucose 85 Calcium 9.0 [facility] Medical History Osteoarthritis of left hip Medicare annual wellness visit, subsequent Hypertension CKD (chronic kidney disease) stage 3, GFR 30-59 ml/min Osteoarthritis, multiple sites Osteoporosis Hyperlipidemia Hypothyroidism Mass of soft tissue of left lower extremity Lower extremity edema Social History marital status: unknown household members: none lives independently: Yes occupational status: unemployed Smoking Status: Former smoker alcohol intake: current substance use type: does not use Discharge Assessment & Plan Assessment and Plan Assessment: 1. Ground level mechanical fall with left greater trochanter fracture, likely pathologic due to underlying osteoporosis. Admit the patient to medical floor under inpatient status. She is able to weight bear but has severe pain and resulting gait instability and will require halfway facility placement. Orthopedics surgery following. 2. Chronic kidney disease stage III. Cr at baseline continue to monitor. 3. Hypertension. Continue home amlodipine. 4. Hypothyroidism. Continue home Synthroid. 5. Osteoporosis. Continue raloxifene. Plan of Treatment: Discharge to halfway [facility]. Pursue rehabilitative efforts. Discharge Plan Discharge Plan Patient Disposition: SNF Transfer to: [facility] Under care of provider: Dr Da Silva Provider Discharge Comment: Stable for discharge to [facility] for rehabilitation efforts. Discharge orders & Medications Prescriptions: New hydrocodone-acetaminophen 5-325 mg Tablet 1 tab PO Q4H PRN (Reason: Pain, Moderate (4-6)) Qty: 15 0RF aspirin 81 mg capsule 81 mg PO BID Qty: 28 0RF Continued [CoQ10] 300 mg PO QDAY Qty: 0 MULTIVITAMIN (Multivitamin -) 1 cap PO EVERY DAY Qty: 0 Vitamin E (Alpha-Tocopherol) 400 unit PO QDAY Qty: 0 zolpidem 5 mg tablet 2.5 mg PO HS PRN (Reason: insomnia) Qty: 30 2RF Rx Instructions: Take one-half tab by mouth at bedtime as needed for insomnia. levothyroxine [Synthroid] 75 mcg tablet 75 mcg PO QAM Qty: 90 3RF tolterodine 4 mg capsule,extended release 24hr See Rx Instructions .ROUTE .COMPLEX Qty: 90 0RF Dose Instruction: TAKE ONE CAPSULE BY MOUTH ONE TIME DAILY Rx Instructions: TAKE ONE CAPSULE BY MOUTH ONE TIME DAILY raloxifene 60 mg tablet 60 mg PO DAILY Qty: 90 0RF meloxicam 7.5 mg tablet 7.5 mg PO DAILY Qty: 90 1RF Rx Instructions: 7.5 mg tab only acetaminophen [Tylenol Extra Strength] 500 mg tablet 500 mg PO Q6H PRN (Reason: Pain (Scale Score 4-6)) PT-xundfgwqfgg-ygawon ox-zinc 500-750-1.5-25 jgm-gf-xt-mg Tablet,Ext Release Multiphase 500 tab PO BEDTIME amlodipine 5 mg tablet 7.5 mg PO BEDTIME Medication counseling provided by Pharmacist: No Follow up/Referrals: Robin Sims MD [Primary Care Provider] - Discharge Health Status Multidrug resistant organism: No MDRO Diet/Activity/Treatments Diet: Regular Liquid consistency: Normal/Thin Food texture: Regular Activity: As tolerated (WBAT) Special Rehabilitation Services Reason for rehabilitation: Recovery r/t decondition Rehab type: Physical therapy and Occupational therapy Visit Report/Discharge Packet Stand Alone Forms: Patient Portal/API Discharge Data Primary Care Provider: Robin Sims
--- NOTE | 2024-09-11 11:15 | PT.IPTN ---
Current Diagnoses Displaced fracture of greater trochanter of left femur, initial encounter for closed fracture (09/09/24) Physical Therapy Treatment Note M2 PT-IP Current Condition Start: 09/08/24 12:53 Freq: NEEDED Status: Active Protocol: Document 09/08/24 11:45 AB (Rec: 09/08/24 13:04 AB [id number]) Physical Therapy Current Condition Current Condition Evaluation Date 09/08/24 Treatment Diagnosis s/p fall; L periprosthetic fx of greater trochanger; difficulty in walking Onset Date 09/08/24 M3 PT-IP Subjective Start: 09/08/24 12:53 Freq: NEEDED Status: Active Protocol: Document 09/11/24 11:33 TS (Rec: 09/11/24 11:39 TS [id number]) Subjective Physical Therapy Visit Type Type Treatment Note Visit Start Time 11:15 Visit Stop Time 11:33 Number of PARTS COUNTER SPECIALIST Visits 1 Physical Therapy Visit Comments Patient Comments Pt found resting in the chair, she is agreeable to PT. Therapy Pain Assessment Pain When Pain Assessed At Rest Pain Present Pain Present Pain Reported M4 PT-IP Mobility and Gait Start: 09/08/24 12:53 Freq: NEEDED Status: Active Protocol: Document 09/11/24 11:33 TS (Rec: 09/11/24 11:39 TS [id number]) PT-Transfer Assessment Sit to and From Stand Sit to and from Stand Standby Assistance Equipment Transfer Assistive Device Gait Belt,Front Wheeled Walker Orthotic/Prosthetic Devices or Brace: No Comments Mobility Comments STS with FWW SBA. She ambulates ~40 in the room SBA with FWW and slow step to gait . Pt was left back in the chair, all needs met. Gait Assessment Gait Gait Assistance Required: Contact Guard Assist,1 Person Assist Distance (Feet) 40 Able to Maintain Weight Bearing Status Yes During Gait Assistive Devices Assistive Device Gait Belt,Front Wheeled Walker Gait Deviations General Gait Pattern Antalgic,Decreased Stride Length,Decreased Feet Clearance,Step-to Gait Factors Limiting Gait Function Factors Limiting Gait Function Decreased Activity Tolerance, Pain,Poor Balance PT-Balance Assessment Sitting Balance and Reactions Static Sitting Balance Ability Normal Dynamic Sitting Balance Ability Normal Standing Balance and Reactions Static Standing Balance Ability Good Dynamic Standing Balance Ability Fair Device Used FWW M5 PT-IP Objective Assessments Start: 09/08/24 12:53 Freq: NEEDED Status: Active Protocol: Document 09/08/24 11:45 AB (Rec: 09/08/24 13:04 AB [id number]) Orientation Orientation/Cognition Level of Alertness Alert Orientation Name,Age,Birthday,Place, Situation Language Function Ability No Deficits Noted Safety Awareness Understands Safety Issues Memory Description No Deficits Noted Gross Range of Motion Lower Extremity ROM Assessment Within Functional Limits Strength Lower Extremity Strength Assessment Left Impaired Hip 3-/5 Knee 4-/5 Coordination Assessment Gross Coordination Gross Coordination WNL Sensation Assessment Sensation Gross Sensation WNL Muscle Tone Muscle Tone WNL Yes M6 PT-IP Treatment Start: 09/08/24 12:53 Freq: NEEDED Status: Active Protocol: Document 09/11/24 11:33 TS (Rec: 09/11/24 11:39 TS [id number]) Physical Therapy Treatment Education Education Provided Weight Bearing Status,Safety M7 PT-IP Assessment and Plan Start: 09/08/24 12:53 Freq: NEEDED Status: Active Protocol: Document 09/11/24 11:33 TS (Rec: 09/11/24 11:39 TS [id number]) PT Summary Assessment and Plan Potential Rehabilitation Potential Good Summary Impairments Pain,ROM,Strength,Balance, Coordination,Bed Mobility, Transfers,Gait,Activity Tolerance Progress Towards Goals Progressing Toward Goals Assessment Summary Julissa is doing well with her mobility. She is SBA/CGA for all mobility. She progressed her gait to ~40' with use of FWW. PT is recommending SNF before safe d/c home. Goals Bed Mobility Goal Independent Transfer Goal Independent,Front Wheeled Walker Gait Goal Independent,Front Wheel Walker Gait Distance 50 Other Goals up/down 3 steps L rail ascending SBA Days to Meet Goals 5 Frequency of Treatment Frequency Of Treatment Once a Day Treatment Plan Physical Therapy Treatment Plan Bed Mobility Training,Transfer Training,Gait Training, Therapeutic Exercise,Balance Retraining,Discharge Planning, Hot or Cold Pack,Neuromuscular Re-ed,Coordination Retraining ,Manual Therapy Weight Bearing Status Weight Bearing Status Weight Bear as Tolerated Allowed Weight Bearing Amount (enter % WBAT or #) (%) Recommendations To Nursing Amount of Assist Needed 1 Person Assist Discharge Recommendations PT Discharge Recommendations SNF Rehab Transportation Needs at Discharge Private Vehicle
--- NOTE | 2024-09-11 12:13 | CM.DPNOTE ---
DC Note Discharge to [facility] today, patient remains aware and agreeable. Jess at [facility] requested add clinical which was compiled and emailed securely. [facility] arranged for picker packer between [phone]. Orders completed and signed by Dr Gil and shared with Kera at [facility] via email. Nurse to nurse P [phone]. Plan: Discharge to [facility] via wheelchair van. ANA PAULA
== END 2024-09-11 13:48 ==
LOC: ED 09-08 02:55 → AC 09-08 02:56
PROVIDERS: Hospitalist; Admitting Provider Internal Medicine; Emergency Provider Emergency Medicine; PCP Family Medicine; Referring Provider Emergency Medicine; Visit Provider Internal Medicine
DX: S72.112A Displaced fracture of greater trochanter of left femur, initial encounter for closed fracture (principal); N18.30 Chronic kidney disease, stage 3 unspecified; I12.9 Hypertensive chronic kidney disease with stage 1 through stage 4 chronic kidney disease, or unspecified chronic kidney disease; E03.9 Hypothyroidism, unspecified; W18.30XA Fall on same level, unspecified, initial encounter; Z96.642 Presence of left artificial hip joint; G47.00 Insomnia, unspecified; Z87.891 Personal history of nicotine dependence; M81.0 Age-related osteoporosis without current pathological fracture
CPT/HCPCS: 36415; 73502; 73700; 80048; 80053; 85025; 85027; 96372; 96374; 97116; 97162; 97165; 97530; 97535; 99284; 99285; G0378; J1644; J1885

== ENCOUNTER → 2024-11-26 07:01 | Outpatient (CLI) | payer MEDICARE, OTHER, SELFPAY ==
[2024-09-08 04:47] VITALS: BMI 28.2
[2024-11-26 08:34] LABS: Add Manual Diff / Slide Review NO; Basophils Absolute Auto 100 /uL (0-100); Basophils Percent Auto 1.1 % (0-2); Eosinophils Absolute Auto 400 /uL (0-450); Eosinophils Percent Auto 8.3 % (2-4); Hematocrit 33.2 % (36-46); Hemoglobin 10.9 g/dL (12.0-16.0); Lymphocytes Absolute Auto 1600 /uL (1100-4500); Lymphocytes Percent Auto 31.1 % (25-40); Mean Corpuscular HGB Conc 32.8 % (30-36); Mean Corpuscular Hemoglobin 31.6 PG (26-34); Mean Corpuscular Volume 96.3 fL (80-100); Monocytes Absolute Auto 500 /uL (0-900); Monocytes Percent Auto 10.4 % (3-14); Neutrophils Absolute Auto 2500 /uL (1500-7000); Neutrophils Percent Auto 49.1 % (50-75); Platelet Count 368 X10^3/uL (150-400); Red Blood Cell Count 3.45 X10^6/uL (4.0-5.2); Red Cell Distribution Width 15.3 % (11.6-14.8); White Blood Cell Count 5.1 X10^3/uL (4.5-11.0)
[2024-11-26 08:57] LABS: HEMOLYSIS < 15 (0-50); Iron 69 ug/dL (37-170)
[2024-11-26 09:03] LABS: Alanine Aminotransferase 21 IU/L (<35); Albumin Globulin Ratio 1.7 (1.0-2.8); Alkaline Phosphatase 110 U/L (38-126); Aspartate Aminotransferase 37 IU/L (14-36); BUN Creatinine Ratio 21.3 (6-22); Bilirubin Total 0.8 mg/dL (0.2-1.3); Blood Urea Nitrogen 23 mg/dL (7-17); Calcium 9.5 mg/dL (8.4-10.2); Carbon Dioxide 25 mmol/L (22-32); Chloride 106 mmol/L (98-107); Cholesterol 219 mg/dL (140-199); Estimated Glomerular Filt Rate 51 mL/min (>60); Globulin 2.3 g/dL (1.7-4.1); Glucose 94 mg/dL (80-110); HDL Cholesterol 106 mg/dL (40-60); HEMOLYSIS < 15 (0-50); LDL Cholesterol Calculated 94 mg/dL (<100); Potassium 4.2 mmol/L (3.4-5.1); Sodium 138 mmol/L (137-145); Total Protein 6.3 g/dL (6.3-8.2); Triglycerides 93 mg/dL (35-150)
[2024-11-26 09:10] LABS: Percent Iron Saturation 29 % (15-50); Total Iron Binding Capacity 241 ug/dL (265-497); Transferrin 242 mg/dL (206-381)
[2024-11-26 09:31] LABS: TSH w/ Reflex to FT4 2.14 uIU/mL (0.47-4.68)
[2024-11-26 09:36] LABS: Ferritin 53 ng/mL (11-264)
[2024-11-26 10:59] LABS: Creatinine Urine Random 55.26 mg/dL
[2024-11-26 11:06] LABS: Microalbumin Urine Random 5.3 mg/dL (0-1.6)
== END ==
PROVIDERS: PCP Family Medicine; Referring Provider Family Medicine; Visit Provider Family Medicine
DX: S72.112A Displaced fracture of greater trochanter of left femur, initial encounter for closed fracture (principal); D64.9 Anemia, unspecified; I10 Essential (primary) hypertension; X58.XXXA Exposure to other specified factors, initial encounter
CPT/HCPCS: 36415; 80053; 80061; 82043; 82570; 82728; 83540; 83550; 84443; 85025

== ENCOUNTER → 2025-03-01 07:56 | Outpatient (CLI) | payer MEDICARE, OTHER, SELFPAY ==
[2024-09-08 04:47] VITALS: BMI 28.2
[2025-03-01 08:56] LABS: Add Manual Diff / Slide Review NO; Basophils Absolute Auto 100 /uL (0-100); Basophils Percent Auto 1.4 % (0-2); Eosinophils Absolute Auto 300 /uL (0-450); Eosinophils Percent Auto 6.8 % (2-4); Hematocrit 32.7 % (36-46); Lymphocytes Absolute Auto 1900 /uL (1100-4500); Lymphocytes Percent Auto 40.8 % (25-40); Mean Corpuscular HGB Conc 33.5 % (30-36); Mean Corpuscular Hemoglobin 32.7 PG (26-34); Mean Corpuscular Volume 97.4 fL (80-100); Monocytes Absolute Auto 500 /uL (0-900); Monocytes Percent Auto 9.8 % (3-14); Neutrophils Absolute Auto 2000 /uL (1500-7000); Neutrophils Percent Auto 41.2 % (50-75); Platelet Count 359 X10^3/uL (150-400); Red Blood Cell Count 3.36 X10^6/uL (4.0-5.2); Red Cell Distribution Width 13.9 % (11.6-14.8); White Blood Cell Count 4.8 X10^3/uL (4.5-11.0)
[2025-03-01 09:20] LABS: Alanine Aminotransferase 19 IU/L (<35); Albumin 4.4 g/dL (3.5-5.0); Albumin Globulin Ratio 1.9 (1.0-2.8); Alkaline Phosphatase 91 U/L (38-126); Aspartate Aminotransferase 33 IU/L (14-36); BUN Creatinine Ratio 23.5 (6-22); Bilirubin Total 0.8 mg/dL (0.2-1.3); Blood Urea Nitrogen 27 mg/dL (7-17); Carbon Dioxide 25 mmol/L (22-32); Chloride 108 mmol/L (98-107); Estimated Glomerular Filt Rate 47 mL/min (>60); Globulin 2.3 g/dL (1.7-4.1); Glucose 97 mg/dL (80-110); HEMOLYSIS < 15 (0-50); Potassium 5.1 mmol/L (3.4-5.1); Sodium 141 mmol/L (137-145); Total Protein 6.7 g/dL (6.3-8.2)
[2025-03-01 15:08] LABS: Microalbumin Urine Random 4.2 mg/dL (0-1.6)
== END ==
PROVIDERS: PCP Family Medicine; Referring Provider Family Medicine; Visit Provider Family Medicine
DX: N18.30 Chronic kidney disease, stage 3 unspecified (principal); D64.9 Anemia, unspecified
CPT/HCPCS: 36415; 80053; 82043; 82570; 84155; 84156; 84165; 84166; 85025

== ENCOUNTER → 2025-03-18 12:53 | Outpatient (CLI) | payer MEDICARE, OTHER, SELFPAY ==
[2024-09-08 04:47] VITALS: BMI 28.2
--- NOTE | 2025-03-18 12:57 | DI.MG.S_ITS ---
MM screening mammo unilat LT: 03/18/2025. BI-RADS: 2 CLINICAL: 84-year old female for left screening mammogram. No Tyrer-Cuzick risk score calculation due to the patient's personal history of breast cancer. Patient reports a history of right breast carcinoma diagnosed at age 48. Status-post right mastectomy. No first-degree family history of breast cancer. Personal history of ovarian cancer. PRIOR EXAMS 03/12/2024, 01/28/2023, 01/21/2022, 12/22/2020, 12/21/2019, 12/14/2019, 11/23/2018, 09/28/2017, 09/08/2016, 07/30/2015. MAMMOGRAPHY TECHNIQUE: 2D and 3D (tomosynthesis) digital mammographic views obtained, with additional images as needed for full coverage. Current study was also evaluated with a Computer Aided Detection (CAD) system. DENSITY Left: B. There are scattered areas of fibroglandular density. MAMMOGRAPHY FINDINGS Left: Benign-appearing calcification noted on the left. Typically-benign vascular calcifications also noted. No significant change from comparison. IMPRESSION: Left * No evidence of malignancy with benign findings. RECOMMENDATIONS Left * Annual screening mammography. OVERALL ASSESSMENT CATEGORY BI-RADS-2: Benign. The [employer] recommends annual screening mammography beginning at age 40 for women with average risk of breast cancer. ELECTRONICALLY SIGNED: Minnie Quezada M.D. on 03/19/2025 at 04:38:09 PM PT Interpreting Station ID: [id number]
== END ==
PROVIDERS: PCP Family Medicine; Referring Provider Family Medicine; Visit Provider Family Medicine
DX: Z12.31 Encounter for screening mammogram for malignant neoplasm of breast (principal); Z85.3 Personal history of malignant neoplasm of breast; Z85.43 Personal history of malignant neoplasm of ovary; Z90.11 Acquired absence of right breast and nipple
CPT/HCPCS: 77063; 77067

== ENCOUNTER → 2025-09-03 15:01 | Outpatient (CLI) | payer MEDICARE, OTHER, SELFPAY ==
[2024-09-08 04:47] VITALS: BMI 28.2
--- NOTE | 2025-09-03 15:05 | DI.RAD.S_ITS ---
PROCEDURE: XR SHOULDER RT MIN 2V INDICATIONS: F/U POST REVERSE ARTHROPLASTY TECHNIQUE: Three views of the shoulder were acquired. COMPARISON: [facility], CR, XR SHOULDER RT 2+ VIEWS, 07/19/2025, 15:38. FINDINGS: Bones: There are no osseous abnormalities. Acromioclavicular and glenohumeral joints: Glenohumeral prosthesis is anatomically aligned. Mild acromioclavicular degeneration noted . Soft tissues: No soft tissue swelling, calcification or mass. IMPRESSION: Glenohumeral prosthesis in anatomic aligned without complication Dictated by: Ayden Nelson M.D. on 09/04/2025 at 13:31 Approved by: Ayden Nelson M.D. on 09/04/2025 at 13:31
== END ==
PROVIDERS: PCP Family Medicine
DX: M19.011 Primary osteoarthritis, right shoulder (principal); Z96.611 Presence of right artificial shoulder joint
CPT/HCPCS: 73030

== ENCOUNTER → 2025-09-18 13:45 | Outpatient (CLI) | payer MEDICARE, OTHER, SELFPAY ==
[2024-09-08 04:47] VITALS: BMI 28.2
--- NOTE | 2025-09-18 13:47 | DI.US.S_ITS ---
PROCEDURE: US PERIPH VENOUS UP EXTREM RT INDICATIONS: upper arm swelling TECHNIQUE: Real-time imaging, as well as color and pulse Doppler interrogation, was performed of the upper extremity deep veins from the inferior neck to the antecubital fossa. COMPARISON: None. FINDINGS: The internal jugular vein, visualized portions of the subclavian vein, axillary, and brachial veins are free of intraluminal thrombus. Where physically possible, the veins are normally compressible. Color and pulse Doppler demonstrate normal intraluminal flow, with expected phasicity and pulsatility. Additional scanning of the cephalic and basilic veins of the superficial system demonstrates normal compressibility, without thrombus. Edema in the right upper arm. Hypoechoic nodules adjacent to the basilic vein measuring up to 7 mm, possible lymph nodes. Multiple right-sided thyroid nodules, largest measuring 3.6 cm. IMPRESSION: No findings of upper extremity deep venous thrombosis can be seen. Recommend dedicated thyroid ultrasound for further evaluation of thyroid nodules if not previously obtained. Hypoechoic nodules adjacent to the basilic vein measuring up to 7 mm, may represent lymph nodes. Edema in the right upper arm. Dictated by: Taurus Robins M.D. on 09/18/2025 at 15:51 Approved by: Taurus Robins M.D. on 09/18/2025 at 15:53
--- NOTE | 2025-09-18 13:47 | DI.RAD.S_ITS ---
PROCEDURE: XR HIP W PEL IF DONE RT 2V INDICATIONS: follow up left periprosthetic hip fracture TECHNIQUE: AP pelvis with lateral view(s) of the right hip(s). COMPARISON: [facility], CR, XR HIP W PEL RT 2V, 07/19/2025, 15:38. [facility], CR, XR HIP W PEL IF DONE LT 2V, 09/07/2024, 17:01. FINDINGS: Bones: Bilateral hip arthroplasties are redemonstrated. Interval placement of lateral plate and screw fixation of the right proximal femur. No evidence of hardware complication. The previously seen fracture is no longer visualized due to overlapping hardware. Pelvic ring appears intact. No suspicious bony lesions. Soft tissues: The visualized bowel gas pattern is normal. No suspicious soft tissue calcifications. IMPRESSION: Postoperative changes as described above without evidence of hardware complication. Dictated by: Taurus Robins M.D. on 09/18/2025 at 21:42 Approved by: Taurus Robins M.D. on 09/18/2025 at 21:43
== END ==
LOC: US 13:47
PROVIDERS: PCP Family Medicine; Referring Provider Family Medicine; Visit Provider Family Medicine
DX: S72.115D Nondisplaced fracture of greater trochanter of left femur, subsequent encounter for closed fracture with routine healing (principal); R22.31 Localized swelling, mass and lump, right upper limb; E04.2 Nontoxic multinodular goiter; Z98.890 Other specified postprocedural states; Z96.643 Presence of artificial hip joint, bilateral
CPT/HCPCS: 73502; 93971

== ENCOUNTER → 2025-09-25 09:54 | Outpatient (CLI) | payer MEDICARE, OTHER, SELFPAY ==
[2024-09-08 04:47] VITALS: BMI 28.2
--- NOTE | 2025-09-25 09:56 | DI.US.S_ITS ---
PROCEDURE: US THYROID INDICATIONS: abnormal US TECHNIQUE: Real-time scanning was performed of the thyroid gland, with image documentation. COMPARISON: [facility], US, US CAROTID DOPPLER , 04/22/2023, 15:45. FINDINGS: Thyroid: Right lobe measures 4.5 x 2.6 x 2 cm. Left lobe measures 3.8 x 0.8 x 1.2 cm. Isthmus is 0.4 cm thick. Echotexture is heterogeneous. Nodule number: 1 Location: Mid to inferior right thyroid lobe Size: 3.1 x 2.4 x 2 cm, prior 3.6 x 2.3 x 1.7 cm. Composition: Predominantly solid Echogenicity: Hypoechoic Shape: Taller than wide Margins: Mildly irregular Echogenic foci: Punctate Total points: 12 ACR TI-RADS category: 5 IMPRESSION: Suspicious lesions seen within the mid right thyroid. Ultrasound-guided fine-needle aspiration is now recommended. ACR TI-RADS definitions and recommendations: TI-RADS 1 (benign): 0 points. FNA not needed. TI-RADS 2 (not suspicious): 2 points. FNA not needed. TI-RADS 3: 3 points. * FNA if 2.5 cm or larger, follow up if 1.5 cm or larger (at 1, 3, and 5 years). TI-RADS 4: 4-6 points. * FNA if 1.5 cm or larger, follow up if 1 cm or larger (at 1, 2, 3, and 5 years). TI-RADS 5: 7 points or more. * FNA if 1 cm or larger, follow up if 0.5 cm or larger (every year for 5 years). Dictated by: Gee Horton M.D. on 09/25/2025 at 10:13 Approved by: Gee Horton M.D. on 09/25/2025 at 10:17
== END ==
LOC: US 09:55
PROVIDERS: PCP Family Medicine; Referring Provider Family Medicine; Visit Provider Family Medicine
DX: E04.1 Nontoxic single thyroid nodule (principal)
CPT/HCPCS: 76536

== ENCOUNTER → 2025-10-04 15:52 | Outpatient (CLI) | payer MEDICARE, OTHER, SELFPAY ==
[2024-09-08 04:47] VITALS: BMI 28.2
--- NOTE | 2025-10-04 15:59 | DI.RAD.S_ITS ---
PROCEDURE: XR SHOULDER RT MIN 2V INDICATIONS: routine TECHNIQUE: 3 views of the shoulder were acquired. COMPARISON: [facility], CR, XR SHOULDER RT 2+ VIEWS, 09/03/2025, 15:08. [facility], CR, XR SHOULDER RT 2+ VIEWS, 07/19/2025, 15:38. FINDINGS/IMPRESSION: Interval right shoulder arthroplasty, without hardware complication. Dictated by: Agus Garcia M.D. on 10/05/2025 at 10:24 Approved by: Agus Garcia M.D. on 10/05/2025 at 10:25
== END ==
LOC: DI 15:55
PROVIDERS: PCP Family Medicine; Referring Provider Family Medicine; Visit Provider Family Medicine
DX: Z96.611 Presence of right artificial shoulder joint (principal)
CPT/HCPCS: 73030

== ENCOUNTER → 2025-10-16 13:16 | Outpatient (CLI) | payer MEDICARE, OTHER, SELFPAY ==
[2024-09-08 04:47] VITALS: BMI 28.2
--- NOTE | 2025-10-16 | PATH_ITS ---
Note [facility] Accession Number: [id number] TESTS RESULT FLAG UNITS REF RANGE LAB Clinician Provided Cytology Information No. of containers..02 Previously Prepared Cytology Slide 35 Unknown Storage/container code(s) Source: RIGHT THYROID NODULE DIAGNOSIS: 01 RIGHT THYROID NODULE, FINE NEEDLE ASPIRATION. ADEQUATE FOR EVALUATION. COLLOID AND FOLLICULAR GROUPS ARE PRESENT. FAVOR A FOLLICULAR (GOITEROUS) NODULE ([place] CATEGORY II), SEE COMMENT. COMMENT: MICROSCOPIC EXAMINATION REVEALS A MILDLY CELLULAR ASPIRATE, COMPOSED OF COLLOID, FOLLICULAR GROUPS WITHOUT SIGNIFICANT CYTOLOGIC OR ARCHITECTURAL ATYPIA, AND BACKGROUND MACROPHAGES. THESE FINDINGS OVERALL FAVOR A BENIGN FOLLICULAR (GOITEROUS) NODULE. CORRELATION WITH CLINICAL AND RADIOGRAPHIC FINDINGS IS RECOMMENDED. ACCORDING TO THE [place] REPORTING SYSTEM FOR THYROID CYTOPATHOLOGY, THE RISK OF MALIGNANCY IN THE CATEGORY BENIGN-CATEGORY II IS 0-3%; THEREFORE RECOMMEND CONTINUED ULTRASOUND SURVEILLANCE WITH REPEAT FNA IF THE NODULE SIGNIFICANTLY INCREASES IN SIZE. Pathologist ICD10: 01 E04.1 Clinical history: RIGHT THYROID NODULE Signed out by: Tony Daniel MD, Pathologist NPI- [id number] Performed by: Ambrose Pang, [place] ([facility]) Gross description: 01 25 CC, PINK, CLEAR RECIEVED IN CYTOLYT WITH 6 ALCOHOL FIXED AND 6 STAINED SLIDES. 1 RNA WILL BE ON . /FRANCISCO 10/18/[address] [place] [address] FLAG LEGEND: L-Low Normal,H-High Normal,LL-Alert Low,HH-Alert High <-Panic Low,>-Panic High,A-Abnormal,AA-Critical Abnormal Performed at: 01 =[address] [facility], [place] [address] Anuj Vallecillo MD, Performed at: [address], [place], [place] [id number] MD Anuj Vallecillo MD Phone: [phone]
--- NOTE | 2025-10-16 13:17 | DI.US.S_ITS ---
PROCEDURE: US FINE NEEDLE ASPIRATION INDICATIONS: RIGHT THYROID NODULE TECHNIQUE: The indications, alternatives, benefits, risks, and complications of the procedure were explained to the patient. Written informed consent was obtained and placed in the chart. The thyroid region was examined sonographically and a site was chosen for ultrasound guided percutaneous sampling. The skin was prepared and draped in the usual fashion, and anesthetized with 1% lidocaine infiltrated from the skin down to the thyroid gland. Multiple passes were then performed, with contents emptied into an appropriate pathology specimen container. A bandage was applied to the area of access at completion of the study. COMPARISON: None. FINDINGS: Location(s) of lesion(s) sampled: Right thyroid lobe nodule [employer]: 25 gauge hypodermic needles. Number of passes: 6 Medications: 1% lidocaine for local anaesthesia. Complications: None. IMPRESSION: Successful ultrasound-guided thyroid nodule fine needle aspiration, with cytology results pending. Please see chart below for management recommendations based on cytology results. [facility] ReportingRecommendationsNon-diagnostic* Repeat US-guided FNA, with on-site cytology evaluation if possible. * Repeated non-diagnostic nodules without high suspicion US features: close observation vs surgical consult. * Consider surgery if nodule has high suspicion US features, grows >20% in 2 dimensions on followup, or patient has clinical risk factors for malignancy. Benign* If nodule has high suspicion US features: repeat US and FNA within 12 months. * If nodule has low to intermediate suspicion US features: repeat US at 12-24 months. If nodule grows (20% increase in at least 2 dimensions, with minimal increase of 2 mm or >50% change in volume), or development of new suspicious US features, then repeat FNA or continue followup. * If nodule has very low suspicion US features: followup US at >24 months. Atypia of undetermined significance, follicular lesion of undetermined significanceRepeat FNA, molecular testing, followup US, or surgical consult.Follicular neoplasm, suspicious for follicular neoplasmSurgical consult; also consider molecular testing. Suspicious for malignancySurgical consult.MalignantSurgical consult. Dictated by: Aftab Tatum M.D. on 10/16/2025 at 15:30 Approved by: Aftab Tatum M.D. on 10/16/2025 at 15:30
== END ==
PROVIDERS: PCP Family Medicine; Referring Provider Family Medicine; Visit Provider Family Medicine
DX: E04.1 Nontoxic single thyroid nodule (principal)
CPT/HCPCS: 10005

== ENCOUNTER → 2025-11-01 10:28 | Outpatient (CLI) | payer MEDICARE, OTHER, SELFPAY ==
[2024-09-08 04:47] VITALS: BMI 28.2
--- NOTE | 2025-11-01 10:30 | DI.RAD.S_ITS ---
PROCEDURE: XR FEMUR RT MIN 2V INDICATIONS: RT HIP FRACTURE TECHNIQUE: 2 views of the femur were acquired. COMPARISON: [facility], CR, XR HIP W PEL RT 2V, 07/19/2025, 15:38. FINDINGS: Bones: Normal alignment of the right knee and hip arthroplasty. Status post lateral plain screw fixation of a right proximal periprosthetic femur fracture. Hardware is intact. Soft tissues: No suspicious soft tissue calcifications or masses. IMPRESSION: Healed or healing fracture at the proximal right femur at the plate and screw fixation. Normal alignment of the right hip and knee arthroplasties. Dictated by: Marjorie Gil M.D. on 11/03/2025 at 19:11 Approved by: Marjorie Gil M.D. on 11/03/2025 at 19:13
== END ==
PROVIDERS: PCP Family Medicine
DX: S72.001D Fracture of unspecified part of neck of right femur, subsequent encounter for closed fracture with routine healing (principal); Z96.641 Presence of right artificial hip joint; Z96.651 Presence of right artificial knee joint; X58.XXXD Exposure to other specified factors, subsequent encounter
CPT/HCPCS: 73552